=== PATIENT | female | born 1950 | race Caucasian/White ===

== ENCOUNTER → 2016-12-14 | Day surgery (SDC) | payer MEDICARE, OTHER ==
[~2016-12-14] MED LIST: ACET325T9 PO; AMLO5TAB4 PO; ASPI81TA9 PO; CYCL10TA2 PO; DOCU100C5 PO; FLUT1DIS3 IH; FURO40TA4 PO; GUAI600T38 PO; HYDROmorphone 2 MG/ML VIAL IV PRN; IV RINGERS,LACTATED 1000ML 1,000 ML IV SCH; LIDOCAINE 1% 1 ML SYRINGE. ID PRN; LIDOCAINE 2% PF Vial for OR 5 ML VIAL. ONE; METF500T4 PO; MONT10TA6 PO; MORPHINE SULFATE 2 MG/ML DISP.SYRIN. IV PRN; ONDANSETRON PF 4 MG/2 ML VIAL. IV PRN; POTASSIUM CHLO10 MEQ PO; PROCHLORPERAZINE 10 MG/2 ML VIAL. IV PRN; PROPOFOL 40 ML IV ONE; PROPRANOLOL PO; TRAM50TA PO; fentaNYL PF VIAL 100 MCG/2 ML VIAL IV PRN
[2016-12-14 11:37] VITALS: BP 120/74
--- NOTE | 2016-12-14 12:00 | PREOP HP ---
DATE OF SERVICE: 12/14/2016 REQUESTING PHYSICIAN: Dr. Wetzel, Primary Care Physician. REASON FOR PROCEDURE: Dysphagia and colorectal cancer screening. HISTORY OF PRESENT ILLNESS: This is a 66-year-old female, who presents with dysphagia. She also presents for colorectal screening. ALLERGIES: 1. LATEX. 2. BACITRACIN. PAST MEDICAL HISTORY: Significant for: 1. Arthritis. 2. Asthma. 3. COPD. 4. Diabetes. 5. Reflux. 6. Fibromyalgia. FAMILY MEDICAL HISTORY: No colorectal cancer. SOCIAL HISTORY: No tobacco, alcohol, or IV drug abuse. MEDICATIONS: Please see MAR. PAST SURGICAL HISTORY: Eye surgery and cardiac catheterization. REVIEW OF SYSTEMS: A 13-point review of systems was done. Pertinent positives per HPI and otherwise negative. PHYSICAL EXAMINATION: VITAL SIGNS: Afebrile. Stable. GENERAL: She is a well-developed and well-nourished female in no apparent distress. HEENT: Oropharynx is clear. CARDIOVASCULAR: S1, S2. LUNGS: Clear. ABDOMEN: Normoactive bowel sounds, soft, nontender, and nondistended. EXTREMITIES: No edema. NEUROLOGIC: Awake, alert, and oriented x 3. ASSESSMENT AND PLAN: 1. Dysphagia. Upper endoscopy. 2. Colorectal cancer screening. Thank you for allowing me to participate in the care of this patient. TANVIR BLEDSOE MD DR: JASPER/justine JOB#: [id number] / [id number] YG Amos MD
--- NOTE | 2016-12-18 13:47 | PATHOLOGY ---
PATHOLOGY REPORT * * * * * * * * FINAL DIAGNOSIS: A. Small bowel biopsy: - No significant pathologic abnormalities. B. Gastric biopsy, antrum: - Chronic gastritis, mild. C. Esophageal biopsy, distal esophagus: - Segments of esophagogastric and gastric mucosa showing mild to moderate active chronic inflammation. D. Esophageal biopsy, middle esophagus: - Segments of hyperplastic squamous esophageal mucosa showing chronic inflammation, consistent with reflux esophagitis. E. Colon biopsy, transverse colon polyp: - Consistent with prominent fold. COMMENT: Sections of the small bowel biopsy reveal segments of duodenal and small intestine mucosa. Where best oriented, the mucosal villi appear normal. There are no sprue-like changes or significant inflammatory changes. Sections of the gastric biopsy reveal gastric antral mucosa showing congestion and mild chronic inflammation with scattered admixed eosinophils. An immunoperoxidase stain for Helicobacter is obtained. No Helicobacter organisms are identified. There is no evidence of malignancy. Sections of the distal esophageal biopsy reveal segments of esophagogastric and gastric mucosa showing mild to moderate active chronic inflammation. There are focal intraepithelial neutrophils within the hyperplastic squamous epithelium. The findings are consistent with reflux esophagitis. There is no evidence of Ramirez's, dysplasia or malignancy. Sections of the middle esophageal biopsy reveal segments of tangentially oriented hyperplastic squamous esophageal mucosa showing chronic inflammation. The findings are consistent with reflux esophagitis. There is no evidence of Ramirez's change, dysplasia or malignancy. Sections of the transverse colon biopsy reveal a segment of colonic mucosa consistent with prominent fold. There are no adenomatous changes or evidence of malignancy. REPORT ELECTRONICALLY SIGNED BY: Mike Gleason M.D. DATE/TIME: 12/18/2016 13:46 * * * * * * * * GROSS PATHOLOGY: A. Received in formalin labeled "Santelierosa, Sara Milyannickossdc, small bowel BX," are 3 segments of thrasher soft tissue measuring 1.3 x 0.2 x 0.2 cm in aggregate dimensions and ranging from 0.3 to 0.7 cm in maximum dimension. The specimen is submitted entirely in cassette A1. B. Received in formalin labeled "Santigorosa, Sara Milagrossdc, gastric antrum BX," is a segment of thrasher soft tissue measuring 0.4 x 0.3 x 0.2 cm in maximum dimension. The specimen is submitted entirely in cassette B1. C. Received in formalin labeled "Santigorosa, Sara Milagrossdc, distal esophagus BX," are 2 segments of thrasher soft tissue measuring 0.6 x 0.2 x 0.2 cm in aggregate dimensions and ranging from 0.3 to 0.3 cm in maximum dimension. The specimen is submitted entirely in cassette C1. D. Received in formalin labeled "Sara Estes, mid esophagus BX," are 3 segments of white to thrasher soft tissue measuring 1.0 x 0.2 x 0.2 cm in aggregate dimensions and ranging from 0.3 to 0.4 cm in maximum dimension. The specimen is submitted entirely in cassette D1. E. Received in formalin labeled "Sara Estes, transverse colon polyp BX," is a segment of thrasher soft tissue measuring 0.5 x 0.3 x 0.2 cm in maximum dimension. The specimen is submitted entirely in cassette E1. (VICKI; 12/15/2016) INITIAL CPT CODE(S): A; 08185 B; 73442, 60782 C; 77055 D; 18474 E; 88652 Professional services [place] [facility] [place] [address] Technical services performed by [facility] at [address] [place] [address], [facility] [address] [address]. SPECIMEN(S) RECEIVED: A.Small bowel biopsy B.Gastric antrum biopsy C.Distal esophagus biopsy D.Mid esophagus biopsy E.Transverse colon polyp biopsy CLINICAL HISTORY: Dysphagia, screening PATIENT: SARA DAMON /AGE: 3 1950 (Age: 66) PATIENT #: [id number] ALT CASE #: SPECIMEN COLLECTION DATE: 12/14/2016 SPECIMEN RECEIVED DATE: 12/14/2016 [facility] - [address] [place] [address] - PHONE: [phone] * * * END OF REPORT * * *
== END | disposition home or self-care (01) ==
LOC: ENDOS 09:10
PROVIDERS: ATTEND Internal Medicine Gastroenterology
DX: Z12.11 Encounter for screening for malignant neoplasm of colon (principal); D12.3 Benign neoplasm of transverse colon; K64.0 First degree hemorrhoids; K31.89 Other diseases of stomach and duodenum; K21.0 Gastro-esophageal reflux disease with esophagitis; B37.81 Candidal esophagitis; I10 Essential (primary) hypertension; J44.9 Chronic obstructive pulmonary disease, unspecified; J45.909 Unspecified asthma, uncomplicated; M19.90 Unspecified osteoarthritis, unspecified site; E11.9 Type 2 diabetes mellitus without complications; Z96.651 Presence of right artificial knee joint; Z98.41 Cataract extraction status, right eye; Z98.42 Cataract extraction status, left eye
CPT/HCPCS: 43239; 43450; 45380; 82962; 88305; 88342; J2704

== ENCOUNTER → 2017-01-23 | Outpatient (CLI) | payer MEDICARE, OTHER ==
[2016-12-14 11:37] VITALS: BP 120/74
[~2017-01-23] MED LIST changes: +ASPI-612 PO; -ASPI81TA9 PO; +DOCU100C28 PO; -DOCU100C5 PO; -GUAI600T38 PO; +GUAI600T47 PO; -HYDROmorphone 2 MG/ML VIAL IV PRN; -IV RINGERS,LACTATED 1000ML 1,000 ML IV SCH; -LIDOCAINE 1% 1 ML SYRINGE. ID PRN; -LIDOCAINE 2% PF Vial for OR 5 ML VIAL. ONE; -MORPHINE SULFATE 2 MG/ML DISP.SYRIN. IV PRN; -ONDANSETRON PF 4 MG/2 ML VIAL. IV PRN; -PROCHLORPERAZINE 10 MG/2 ML VIAL. IV PRN; -PROPOFOL 40 ML IV ONE; -fentaNYL PF VIAL 100 MCG/2 ML VIAL IV PRN
--- NOTE | 2017-01-24 14:55 | PDOC4 ---
PROCEDURE Procedure Polysomnography report Date of service 01/23/[address] Janie Messer Sandhya is 66 years old who weighs 176 pounds with a BMI of 33. Patient [place] score was 14 suggesting moderate subjective hypersomnia. A split night study was performed at [place] [facility]. Patient has a history of sleep apnea diagnosed previously and has been using CPAP at 12 cm water in the past. During the night of study patient spent 455 minutes in bed and slept for 340 minutes with a sleep efficiency of 75%. Sleep latency was 32 minutes with a REM latency of 139 minutes. sleep Architecture showed normal stage I sleep., increased stage II sleep, increased slow-wave sleep and reduced REM sleep. During the initial diagnostic portion of the study patient slept for 132 minutes. During that time there was no obstructive apneas and mixed apneas or central apneas. There were 74 hypopneas. Patient's AHI was 34 per hour during the diagnostic portion. Supine AHI was 34 per hour and a REM AHI of 31 per hour. Review of nocturnal oximetry study reveals a mean oxygen saturation of 97% with a lowest of 87%. 4% percent of the time oxygen saturation remained between 80 and 89%. EKG monitoring revealed normal sinus rhythm. Average heart rate was 81 bpm and minute. No periodic limb movements were seen. Patient met the criteria for CPAP initiation. It was started at 5 cm water and titrated up to 9 cm water. At this final pressure patient slept for 49 minutes. She had supine as well as REM sleep. AHI was reduced to 0 per hour. saturation remained above 93%. Pt used small size full facemask. Impression 1. Severe sleep apnea Syndrome with an AHI of 34 per hour. 2. No clinically significant nocturnal hypoxia. 3. No clinically significant periodic limb movements. Recommendation 1.CPAP at 9 cm water should be used on a nightly basis. 2. Follow-up in 4-6 weeks to assess compliance with CPAP and to document clinical improvement. 3. Weight loss is advised 5. Cautioned regarding driving until symptoms of sleep apnea have resolved with the use of CPAP. ADAN BISHOP MD Jan 24, 2017 14:55
== END | disposition home or self-care (01) ==
LOC: SLPLAB 19:07
PROVIDERS: ATTEND Internal Medicine Pulmonary Disease
DX: G47.33 Obstructive sleep apnea (adult) (pediatric) (principal)
CPT/HCPCS: 95810

== ENCOUNTER 2019-04-15 17:33 | Inpatient (IN) | payer MEDICARE, MEDICAID ==
[~2019-04-15] VITALS: Ht 157.5 cm; Wt 86.4 kg
[~2019-04-15 17:33] MED LIST changes: +METF500T16 PO; -METF500T4 PO; +MONT10TA49 PO; -MONT10TA6 PO; +POTA10TA12 PO; -POTASSIUM CHLO10 MEQ PO
[2019-04-15] MEDS ORDERED: MORPHINE SULFATE 2 MG/ML VIAL. IV/SQ PRN (18:00)
[2019-04-15] MEDS ORDERED: VANCOMYCIN PER PHARMACY MC ONE (18:00)
[2019-04-15] MEDS: IV NORMAL SALINE 1000ML BAG 1,000 ML IV SCH ×2 (18:24→18:28)
[2019-04-15] MEDS ORDERED: PIPERACILLIN/TAZOBACTAM 4.5 GM in IV NORMAL SALINE 100ML 100 ML IV ONE (18:30)
[2019-04-15] MEDS ORDERED: ACETAMINOPHEN 500 MG TABLET PO ONE (18:30)
--- NOTE | 2019-04-15 18:46 | RAD ---
CT Head W/O Contrast: History: Fever neck pain and headache Comparison: none Axial images were obtained without contrast. There is moderate diffuse atrophy. There is no mass effect, extraaxial fluid collections or hydrocephalus. There is no focal loss of burciaga-white matter distinction to suggest acute ischemia, i.e. stroke. Impression: No acute findings. End impression CT C-Spine without contrast: Clinical History: Fever neck pain and headache Technique: Axial helical images of the cervical spine were obtained without contrast, axial coronal and sagittal reconstruction was performed. Findings: There is no loss of vertebral body stature. There is no prevertebral soft tissue swelling. The vertebral bodies are well aligned. There is straightening of the normal cervical lordosis which can be positional or could be chronic. The C1-C2 relationship is normal. The visualized osseous structures appear normal. Evaluation of the central canal is limited without contrast. There is multiple posterior disc bulges resulting in flattening of the thecal sac. There does not appear to be gross flattening of the cervical cord. There is moderate narrowing of multiple neuroforamen. Impression: 1. Straightening of the normal cervical doses could be secondary muscle spasm. 2. Multilevel central and neural femoral stenosis. 3. No acute findings. Clinical correlation suggested. PQRS Compliance Statement: One or more of the following individualized dose reduction techniques were utilized for this examination: 1. Automated exposure control 2. Adjustment of the mA and/or kV according to patient size 3. Use of iterative reconstruction technique Electronically signed by: Jarrod Estrada III, MD (04/15/2019 6:43 PM) [facility]
[2019-04-15 19:00] LABS: BASO % 0 % (0-3); EOS % 0 % (0-3); HEMATOCRIT 37.8 % (36.0-47.0); HEMOGLOBIN 12.3 g/dL (12.0-15.5); LYMPH # 0.9 x10^3/uL (1.0-4.8); LYMPH % 7 % (24-48); MEAN CORPUSCULAR HEMOGLOBIN 29 pg (25-35); MEAN CORPUSCULAR HGB CONC 33 g/dL (31-37); MEAN CORPUSCULAR VOLUME 90 fL (79-100); MONO # 1.3 x10^3/uL (0.0-1.1); MONO % 11 % (0-9); NEUT # 10.2 x10^3/uL (1.8-7.7); NEUT % 82 % (31-73); PLATELET COUNT 155 x10^3/uL (140-400); RED BLOOD COUNT 4.22 x10^6/uL (3.50-5.40); RED CELL DISTRIBUTION WIDTH 13.7 % (11.5-14.5); WHITE BLOOD COUNT 12.3 x10^3/uL (4.0-11.0)
[2019-04-15] MEDS ORDERED: VANCOMYCIN 2 GM in IV NORMAL SALINE 500ML BAG 500 ML IV ONE (19:00)
[2019-04-15] MEDS ORDERED: VANCOMYCIN 1.75 GM in IV NORMAL SALINE 500ML BAG 500 ML IV ONE (19:00)
--- NOTE | 2019-04-15 19:06 | RAD ---
PORTABLE CHEST 1V Clinical History: Fever Technique: AP view of the chest was obtained at 04/15/2019 5:30 PM. Comparison: None. Findings: There is low lung volumes causing crowding of pulmonary vasculature. The pulmonary vessels are top normal limits in size. The pleural margins are clear. Impression: No evidence of an acute cardiopulmonary process. Electronically signed by: Jarrod Estrada III, MD (04/15/2019 7:03 PM) [facility]
[2019-04-15 19:13] LABS: CALCIUM 9.6 mg/dL (8.5-10.1); POTASSIUM 3.6 mmol/L (3.5-5.1)
[2019-04-15 19:18] LABS: ALBUMIN 3.3 g/dL (3.4-5.0); ALBUMIN/GLOBULIN RATIO 0.8 (1.0-1.7); MAGNESIUM 1.9 mg/dL (1.8-2.4); TOTAL BILIRUBIN 0.3 mg/dL (0.2-1.0); TOTAL PROTEIN 7.5 g/dL (6.4-8.2)
[2019-04-15 21:01] LABS: INFLUENZA A PATIENT NEGATIVE (NEGATIVE); INFLUENZA B PATIENT NEGATIVE (NEGATIVE)
[2019-04-15 22:23] LABS: BILIRUBIN,URINE NEGATIVE (NEG); CLARITY,URINE CLEAR; COLOR,URINE YELLOW; NITRITE,URINE POSITIVE (NEG); PROTEIN,URINE 100 mg/dL (NEG-TRACE); UROBILINOGEN,URINE 0.2 mg/dL (0.2 mg/dL)
[2019-04-15 22:30] LABS: BACTERIA,URINE MANY /HPF (0-FEW); HYALINE CASTS, URINE FEW /HPF; RBC,URINE 20-40 /HPF (0-2); SQUAMOUS EPITHELIAL CELL,UR OCC /LPF; WBC,URINE TNTC /HPF (0-4)
--- NOTE | 2019-04-15 23:06 | PHYS DOC ---
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 Patient is a bit of a poor historian. Review of Systems Review of Systems Constitutional: Reports fever Eyes: Denies change in visual acuity, redness, or eye pain [] HENT: Denies nasal congestion or sore throat [] Respiratory: Denies cough or shortness of breath [] Cardiovascular: No additional information not addressed in HPI [] GI: Reports nausea and vomiting. Denies abdominal pain bloody stools or diarrhea [] : Denies dysuria or hematuria [] Musculoskeletal: Denies back pain or joint pain [] Integument: Denies rash or skin lesions [] Neurologic: Denies headache, focal weakness or sensory changes [] All other systems were reviewed and found to be within normal limits, except as documented in this note. Current Medications Current Medications Current Medications Medications (Trade) Dose Ordered Sig/Fransico Start Time Stop Time Status Last Admin Dose Admin Acetaminophen (Tylenol) 1,000 mg 1X ONCE 04/15/19 18:30 04/15/19 18:31 DC 04/15/19 18:25 1,000 MG Morphine Sulfate (Morphine Sulfate) 2 mg PRN Q15MIN PRN 04/15/19 18:00 04/16/19 17:59 Piperacillin Sod/ Tazobactam Sod 4.5 gm/Sodium Chloride 100 ml @ 200 mls/hr 1X ONCE 04/15/19 18:30 04/15/19 18:59 DC 04/15/19 18:24 200 MLS/HR Sodium Chloride 1,000 ml @ 1,500 mls/hr Q40M 04/15/19 17:48 04/15/19 18:47 DC 04/15/19 18:28 1,500 MLS/HR Vancomycin HCl (Vanco Per Pharmacy) 1 each 1X ONCE 04/15/19 18:00 04/15/19 20:56 DC Vancomycin HCl 1.75 gm/Sodium Chloride 500 ml @ 250 mls/hr 1X ONCE 04/15/19 19:00 04/15/19 20:59 DC 04/15/19 18:24 250 MLS/HR Vancomycin HCl 2 gm/Sodium Chloride 500 ml @ 250 mls/hr 1X ONCE 04/15/19 19:00 04/15/19 20:59 Cancel Allergies Allergies Allergies Coded Allergies Type Severity Reaction Last Updated Verified bacitracin Allergy Intermediate 12/14/16 Yes Physical Exam Physical Exam Constitutional: Well developed, well nourished, no acute distress, non-toxic appearance. [] HENT: Normocephalic, atraumatic, bilateral external ears normal, oropharynx moist, no oral exudates, nose normal. [] Eyes: PERRLA, EOMI, conjunctiva normal, no discharge. [] Neck: Normal range of motion, no tenderness, supple, no stridor. [] Cardiovascular:Heart rate regular rhythm, no murmur [] Lungs & Thorax: Diminished breath sounds to posterior lung bases Abdomen: Bowel sounds normal, soft, no tenderness, no masses, no pulsatile masses. [] Skin: Warm, dry, no erythema, no rash. [] Back: No tenderness, no CVA tenderness. [] Extremities: No tenderness, no cyanosis, no clubbing, ROM intact, no edema. [] Neurologic: Alert and oriented X 3, normal motor function, normal sensory function, no focal deficits noted. Cranial nerves II through XII intact Psychologic: Affect normal, judgement normal, mood normal. [] Current Patient Data Vital Signs Vital Signs Date Time Temp Pulse Resp B/P (MAP) Pulse Ox O2 Delivery O2 Flow Rate FiO2 04/15/19 17:42 103.5 103 16 134/62 (86) 97 Room Air 103.5 Lab Values Laboratory Tests Test 04/15/19 18:45 04/15/19 20:23 White Blood Count 12.3 x10^3/uL (4.0-11.0) H Red Blood Count 4.22 x10^6/uL (3.50-5.40) Hemoglobin 12.3 g/dL (12.0-15.5) Hematocrit 37.8 % (36.0-47.0) Mean Corpuscular Volume 90 fL (79-100) Mean Corpuscular Hemoglobin 29 pg (25-35) Mean Corpuscular Hemoglobin Concent 33 g/dL (31-37) Red Cell Distribution Width 13.7 % (11.5-14.5) Platelet Count 155 x10^3/uL (140-400) Neutrophils (%) (Auto) 82 % (31-73) H Lymphocytes (%) (Auto) 7 % (24-48) L Monocytes (%) (Auto) 11 % (0-9) H Eosinophils (%) (Auto) 0 % (0-3) Basophils (%) (Auto) 0 % (0-3) Neutrophils # (Auto) 10.2 x10^3/uL (1.8-7.7) H Lymphocytes # (Auto) 0.9 x10^3/uL (1.0-4.8) L Monocytes # (Auto) 1.3 x10^3/uL (0.0-1.1) H Eosinophils # (Auto) 0.0 x10^3/uL (0.0-0.7) Basophils # (Auto) 0.0 x10^3/uL (0.0-0.2) Sodium Level 145 mmol/L (136-145) Potassium Level 3.6 mmol/L (3.5-5.1) Chloride Level 108 mmol/L (98-107) H Carbon Dioxide Level 27 mmol/L (21-32) Anion Gap 10 (6-14) Blood Urea Nitrogen 19 mg/dL (7-20) Creatinine 1.0 mg/dL (0.6-1.0) Estimated GFR (Cockcroft-Gault) 55.0 BUN/Creatinine Ratio 19 (6-20) Glucose Level 161 mg/dL (70-99) H Lactic Acid Level 1.7 mmol/L (0.4-2.0) Calcium Level 9.6 mg/dL (8.5-10.1) Magnesium Level 1.9 mg/dL (1.8-2.4) Total Bilirubin 0.3 mg/dL (0.2-1.0) Aspartate Amino Transferase (AST) 20 U/L (15-37) Alanine Aminotransferase (ALT) 33 U/L (14-59) Alkaline Phosphatase 64 U/L (46-116) Creatine Kinase 83 U/L (26-192) Creatine Kinase MB (Mass) 0.6 ng/mL (0.0-3.6) Creatine Kinase MB Relative Index 0.7 % (0-4) Troponin I Quantitative < 0.017 ng/mL (0.000-0.055) UA-Xbm-L-Type Natriuretic Peptide 203 pg/mL (0-124) H Total Protein 7.5 g/dL (6.4-8.2) Albumin 3.3 g/dL (3.4-5.0) L Albumin/Globulin Ratio 0.8 (1.0-1.7) L Lipase 112 U/L (73-393) Procalcitonin 0.18 ng/mL (0.00-0.10) H Thyroid Stimulating Hormone (TSH) 0.577 uIU/mL (0.358-3.74) Influenza Type A Antigen Negative (NEGATIVE) Influenza Type B Antigen Negative (NEGATIVE) Laboratory Tests 04/15/19 18:45 Laboratory Tests 04/15/19 18:45 EKG EKG [] Radiology/Procedures Radiology/Procedures []PROCEDURE: PORTABLE CHEST 1V PORTABLE CHEST 1V Clinical History: Fever Technique: AP view of the chest was obtained at 04/15/2019 5:30 PM. Comparison: None. Findings: There is low lung volumes causing crowding of pulmonary vasculature. The pulmonary vessels are top normal limits in size. The pleural margins are clear. Impression: No evidence of an acute cardiopulmonary process. Electronically signed by: Jordan Ferrer III, MD (04/15/2019 7:03 PM) [facility] DICTATED and SIGNED BY: JORDAN FERRER III, MD DATE: 04/15/191902 PROCEDURE: CT HEAD AND CERVICAL SPINE WO CT Head W/O Contrast: History: Fever neck pain and headache Comparison: none Axial images were obtained without contrast. There is moderate diffuse atrophy. There is no mass effect, extraaxial fluid collections or hydrocephalus. There is no focal loss of burciaga-white matter distinction to suggest acute ischemia, i.e. stroke. Impression: No acute findings. End impression CT C-Spine without contrast: Clinical History: Fever neck pain and headache Technique: Axial helical images of the cervical spine were obtained without contrast, axial coronal and sagittal reconstruction was performed. Findings: There is no loss of vertebral body stature. There is no prevertebral soft tissue swelling. The vertebral bodies are well aligned. There is straightening of the normal cervical lordosis which can be positional or could be chronic. The C1-C2 relationship is normal. The visualized osseous structures appear normal. Evaluation of the central canal is limited without contrast. There is multiple posterior disc bulges resulting in flattening of the thecal sac. There does not appear to be gross flattening of the cervical cord. There is moderate narrowing of multiple neuroforamen. Impression: 1. Straightening of the normal cervical doses could be secondary muscle spasm. 2. Multilevel central and neural femoral stenosis. 3. No acute findings. Clinical correlation suggested. PQRS Compliance Statement: One or more of the following individualized dose reduction techniques were utilized for this examination: 1. Automated exposure control 2. Adjustment of the mA and/or kV according to patient size 3. Use of iterative reconstruction technique Electronically signed by: Jordan Ferrer III, MD (04/15/2019 6:43 PM) [facility] DICTATED and SIGNED BY: JORDAN FERRER III, MD DATE: 04/15/191842 Course & Med Decision Making Course & Med Decision Making Pertinent Labs and Imaging studies reviewed. (See chart for details) This is a 68-year-old female patient presenting to the ED today with fever nausea and vomiting that began this afternoon well at discharge. Temperature on arrival to the ED were normal 3.5, heart rate 103, respirations 16 on 2 L of oxygen, O2 sats 97%, blood pressure 134/62. Patient was started on sepsis protocol. CBC with a WBC of 12.3, CMP would not acute findings, chest x-ray is negative, urine analysis was pending for a while. Came back showing UTI. Lactic is normal. Patient has been given IV fluids per sepsis protocol as well as antibiotics. Spoke with Dr. Tan who accepted patient for admission Dragon Disclaimer Dragon Disclaimer This electronic medical record was generated, in whole or in part, using a voice recognition dictation system. Date and Time of Reassessment Date: Apr 15, 2019 Time: 20:00 Fluid Challenge Is the fluid challenge complet: No IBW Target Volume Used: No BMI > 30: No Vital Signs Vital Signs: Vital Signs Date Time Temp Pulse Resp B/P (MAP) Pulse Ox O2 Delivery O2 Flow Rate FiO2 04/15/19 17:42 103.5 103 16 134/62 (86) 97 Room Air 103.5 Temperature Source: Oral Respirations Respiratory Effort: Normal Respiratory Pattern: Normal Cardiovascular Pulse Rhythm: Regular Heart: Nml rate, reg. rhythm Lung Sounds Breath Sounds: Clear Capillary Refil Capillary Refill: Rt Hand > 3 seconds Peripheral Pulse Pulse Location: Monitor Pulse Strength: Normal (2+) Pulse Assessment Method: Monitor Integumentary Skin: Warm Skin Moisture: Dry Skin Turgor: Normal Skin Color: warm Fingernail Color: WNL Departure Departure Impression: Primary Impression: Fever Additional Impressions: Pyelonephritis Urinary tract infection Disposition: ADMITTED INPATIENT Condition: STABLE Referrals: YG DE LEON MD (PCP) Problem Qualifiers Primary Impression: Fever Fever type: unspecified Qualified Codes: R50.9 - Fever, unspecified Additional Impressions: Urinary tract infection Urinary tract infection type: site unspecified Hematuria presence: without hematuria Qualified Codes: N39.0 - Urinary tract infection, site not spe cified JENNIFER RICHARD APRN Apr 15, 2019 23:06
[2019-04-15] MEDS ORDERED: MORPHINE SULFATE 2 MG/ML VIAL. IV PRN (23:15)
[2019-04-15] MEDS ORDERED: ONDANSETRON PF 4 MG/2 ML VIAL. IV PRN (23:15)
[2019-04-15 23:20] VITALS: BP 115/56
[2019-04-15] MEDS: VANCOMYCIN PER PHARMACY MC PRN (23:21)
--- NOTE | 2019-04-15 23:21 | NUR ---
Pharmacy Vancomycin Dosing Note S:Consulted to monitor and dose vancomycin started 04/15/19. O:SARA DAMON is a 68 year old F with Pyelonephritis UTI . Height: 5 feet, 2 inches Weight: 78.420277 kg [place] Body Weight: 50.10 Adjusted Body Weight: 61.62 Dosing Weight: Actual Other Antibiotics: ZOSYN X1 ER LABS: Last BUN: 19 Last Creatinine: 1 Creatinine Clearance: 51 mL/min Last WBC: 12.3 Last Procalcitonin: 0.18 Tmax (past 24 hours): 103.5 RECTAL Microbiology: I/O: Drug Levels: Last level: on at Last dose given 04/15/19 at 1830 Vancomycin Dosing: Loading Dose: 1750 mg x1 Dosing Weight: Actual Target Trough: 10-20 A: Based on: WT AND CRCL P: 1. Begin Vancomycin 1250 mg IV q24h 2. Follow up Trough level on 04/17/19 at 1730 3. Pharmacy will continue to monitor, follow and adjust therapy as needed. CORIE TADEO RPH, 04/15/19 2321 Signed: 04/15/19 at 2322 by CORIE TADEO RPH PHA
[2019-04-15] MEDS ORDERED: IV NORMAL SALINE 1000ML BAG 1,000 ML IV ONE (23:30)
[2019-04-16] MEDS ORDERED: ASPI-630 PO (02:14)
[2019-04-16] MEDS ORDERED: GUAI600T47 PO (02:14)
[2019-04-16] MEDS ORDERED: GABA-585 PO (02:14)
[2019-04-16] MEDS ORDERED: FLUT9.9S NS (02:14)
[2019-04-16] MEDS ORDERED: BETA15CR5 TP (02:14)
[2019-04-16] MEDS ORDERED: FLUT1DIS3 IH (02:14)
[2019-04-16] MEDS ORDERED: LORA10TA3 PO (02:14)
[2019-04-16] MEDS ORDERED: IBUP-1027 PO (02:14)
[2019-04-16] MEDS ORDERED: OMEG-165 PO (02:14)
[2019-04-16] MEDS ORDERED: FURO20TA3 PO (02:14)
[2019-04-16] MEDS ORDERED: LIDO76.5 TP (02:14)
[2019-04-16] MEDS ORDERED: VENTOLIN HFA18 GM INH (02:14)
[2019-04-16] MEDS ORDERED: POLY17PO29 PO (02:14)
[2019-04-16] MEDS ORDERED: POTA10TA12 PO (02:14)
[2019-04-16] MEDS ORDERED: CYCL1DRO EACHEYE (02:14)
[2019-04-16] MEDS ORDERED: ERGO500027 PO (02:14)
[2019-04-16] MEDS ORDERED: ACET500T68 PO (02:14)
[2019-04-16] MEDS ORDERED: OMEP20CA10 PO (02:14)
[2019-04-16] MEDS ORDERED: FURO40TA4 PO (02:14)
[2019-04-16 03:15] VITALS: BP 146/68
[2019-04-16] MEDS: ACETAMINOPHEN 325 MG TABLET. PO PRN ×2 (03:21→03:38)
[2019-04-16] MEDS ORDERED: ACETAMINOPHEN 650 MG SUPP.RECT. PR PRN (03:30)
--- NOTE | 2019-04-16 04:10 | NUR ---
Rapid Response Note: Rapid response called by patient's RN for decreased LOC. RN states patient was admitted from ED tonight with Sepsis/UTI. She also stated patient did have fever in ED but it had decreased after administration of Tylenol and was normal on admission to unit; patient also alert, cooperative, and able to get up to bathroom with assist. Upon arrival, patient's skin is flushed and hot to touch, temp 104.1 axillary, patient vomiting green bile, and patient is very lethargic but she does open eyes to name; Tylenol suppository and Zofran IV given. Patient was given Vanc and Zosyn in ED prior to admit. Ice bag placed behind patient's head, in bilat arm pits, and bilat groins. Notified RN to recheck Lactic, obtain one set of blood cultures, and monitor closely for seizures and call if PCP if fever does not decrease; RN verbalized understanding. Patient remains in the room. Addendum: 04/16/19 at 0702 by JANEL CARDONA RN Amended: Links added.
[2019-04-16 04:20] LABS: BASO # 0.1 x10^3/uL (0.0-0.2); BASO % 1 % (0-3); EOS % 0 % (0-3); HEMATOCRIT 35.3 % (36.0-47.0); HEMOGLOBIN 11.6 g/dL (12.0-15.5); LYMPH # 0.9 x10^3/uL (1.0-4.8); LYMPH % 8 % (24-48); MEAN CORPUSCULAR HEMOGLOBIN 30 pg (25-35); MEAN CORPUSCULAR HGB CONC 33 g/dL (31-37); MEAN CORPUSCULAR VOLUME 90 fL (79-100); MONO # 1.4 x10^3/uL (0.0-1.1); MONO % 12 % (0-9); NEUT # 9.3 x10^3/uL (1.8-7.7); NEUT % 80 % (31-73); PLATELET COUNT 131 x10^3/uL (140-400); RED BLOOD COUNT 3.92 x10^6/uL (3.50-5.40); RED CELL DISTRIBUTION WIDTH 13.6 % (11.5-14.5); WHITE BLOOD COUNT 11.7 x10^3/uL (4.0-11.0)
[2019-04-16 04:28] LABS: POTASSIUM 3.5 mmol/L (3.5-5.1)
--- NOTE | 2019-04-16 04:28 | NUR ---
Patient started having emesis and skin felt warm and assessed temperature and 102.4ax and became alert and orientated to self. Administered Zofran and tylenol suppository. Called a rapid response due to patients temperature of 104.1 axillary and placed ice packs under patient, cold wash cloths, cold NS and contacted Dr. Valdez and stat labs and blood culture.
--- NOTE | 2019-04-16 06:59 | EKG ---
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
[2019-04-16 07:00] VITALS: BP 111/56
--- NOTE | 2019-04-16 07:07 | EKG ---
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
[2019-04-16] MEDS ORDERED: FLU VAX QS 2019-20 (36MOS+)/PF 0.5 ML SYRINGE. VAX IM ONE (09:15)
[2019-04-16] MEDS ORDERED: IBUPROFEN 400 MG TABLET. PO PRN (09:45)
[2019-04-16] MEDS ORDERED: PIP/TAZO PER PHARMACY MC PRN (09:45)
[2019-04-16] MEDS: POLYETHYLENE GLYCOL 3350 17 GM PACKET. PO SCH (10:00)
[2019-04-16] MEDS ORDERED: methylPREDNISolone SOD SUCC PF 40 MG/ML VIAL. IV SCH (10:00)
[2019-04-16] MEDS: DOCUSATE SODIUM 100 MG CAPSULE. PO SCH ×2 (10:00→21:56)
[2019-04-16] MEDS ORDERED: metFORMIN 500 MG TABLET PO SCH (10:00)
--- NOTE | 2019-04-16 10:02 | PDOC ---
Infectious Disease Note Vital Sign Vital Signs Vital Signs Date Time Temp Pulse Resp B/P (MAP) Pulse Ox O2 Delivery O2 Flow Rate FiO2 04/16/19 07:00 99.5 93 18 111/56 (74) 96 Nasal Cannula 2.0 99.5 Labs Lab Laboratory Tests Test 04/15/19 18:45 04/15/19 20:23 04/15/19 20:25 04/15/19 22:13 White Blood Count 12.3 x10^3/uL (4.0-11.0) Red Blood Count 4.22 x10^6/uL (3.50-5.40) Hemoglobin 12.3 g/dL (12.0-15.5) Hematocrit 37.8 % (36.0-47.0) Mean Corpuscular Volume 90 fL (79-100) Mean Corpuscular Hemoglobin 29 pg (25-35) Mean Corpuscular Hemoglobin Concent 33 g/dL (31-37) Red Cell Distribution Width 13.7 % (11.5-14.5) Platelet Count 155 x10^3/uL (140-400) Neutrophils (%) (Auto) 82 % (31-73) Lymphocytes (%) (Auto) 7 % (24-48) Monocytes (%) (Auto) 11 % (0-9) Eosinophils (%) (Auto) 0 % (0-3) Basophils (%) (Auto) 0 % (0-3) Neutrophils # (Auto) 10.2 x10^3/uL (1.8-7.7) Lymphocytes # (Auto) 0.9 x10^3/uL (1.0-4.8) Monocytes # (Auto) 1.3 x10^3/uL (0.0-1.1) Eosinophils # (Auto) 0.0 x10^3/uL (0.0-0.7) Basophils # (Auto) 0.0 x10^3/uL (0.0-0.2) Sodium Level 145 mmol/L (136-145) Potassium Level 3.6 mmol/L (3.5-5.1) Chloride Level 108 mmol/L (98-107) Carbon Dioxide Level 27 mmol/L (21-32) Anion Gap 10 (6-14) Blood Urea Nitrogen 19 mg/dL (7-20) Creatinine 1.0 mg/dL (0.6-1.0) Estimated GFR (Cockcroft-Gault) 55.0 BUN/Creatinine Ratio 19 (6-20) Glucose Level 161 mg/dL (70-99) Lactic Acid Level 1.7 mmol/L (0.4-2.0) Calcium Level 9.6 mg/dL (8.5-10.1) Magnesium Level 1.9 mg/dL (1.8-2.4) Total Bilirubin 0.3 mg/dL (0.2-1.0) Aspartate Amino Transf (AST/SGOT) 20 U/L (15-37) Alanine Aminotransferase (ALT/SGPT) 33 U/L (14-59) Alkaline Phosphatase 64 U/L (46-116) Creatine Kinase 83 U/L (26-192) Creatine Kinase MB (Mass) 0.6 ng/mL (0.0-3.6) Creatine Kinase MB Relative Index 0.7 % (0-4) Troponin I Quantitative < 0.017 ng/mL (0.000-0.055) HW-Mzc-R-Type Natriuretic Peptide 203 pg/mL (0-124) Total Protein 7.5 g/dL (6.4-8.2) Albumin 3.3 g/dL (3.4-5.0) Albumin/Globulin Ratio 0.8 (1.0-1.7) Lipase 112 U/L (73-393) Procalcitonin 0.18 ng/mL (0.00-0.10) Thyroid Stimulating Hormone (TSH) 0.577 uIU/mL (0.358-3.74) Influenza Type A Antigen Negative (NEGATIVE) Influenza Type B Antigen Negative (NEGATIVE) Group A Streptococcus Rapid Negative (NEGATIVE) Urine Collection Type U cath Urine Color Yellow Urine Clarity Clear Urine pH 6.0 Urine Specific [place] 1.025 Urine Protein 100 mg/dL (NEG-TRACE) Urine Glucose (UA) Negative mg/dL (NEG) Urine Ketones (Stick) Negative mg/dL (NEG) Urine Blood Moderate (NEG) Urine Nitrite Positive (NEG) Urine Bilirubin Negative (NEG) Urine Urobilinogen Dipstick 0.2 mg/dL (0.2 mg/dL) Urine Leukocyte Esterase Large (NEG) Urine RBC 20-40 /HPF (0-2) Urine WBC Tntc /HPF (0-4) Urine Squamous Epithelial Cells Occ /LPF Urine Bacteria Many /HPF (0-FEW) Urine Hyaline Casts Few /HPF Test 04/16/19 03:27 04/16/19 04:10 Glucose (Fingerstick) 163 mg/dL (70-99) White Blood Count 11.7 x10^3/uL (4.0-11.0) Red Blood Count 3.92 x10^6/uL (3.50-5.40) Hemoglobin 11.6 g/dL (12.0-15.5) Hematocrit 35.3 % (36.0-47.0) Mean Corpuscular Volume 90 fL (79-100) Mean Corpuscular Hemoglobin 30 pg (25-35) Mean Corpuscular Hemoglobin Concent 33 g/dL (31-37) Red Cell Distribution Width 13.6 % (11.5-14.5) Platelet Count 131 x10^3/uL (140-400) Neutrophils (%) (Auto) 80 % (31-73) Lymphocytes (%) (Auto) 8 % (24-48) Monocytes (%) (Auto) 12 % (0-9) Eosinophils (%) (Auto) 0 % (0-3) Basophils (%) (Auto) 1 % (0-3) Neutrophils # (Auto) 9.3 x10^3/uL (1.8-7.7) Lymphocytes # (Auto) 0.9 x10^3/uL (1.0-4.8) Monocytes # (Auto) 1.4 x10^3/uL (0.0-1.1) Eosinophils # (Auto) 0.0 x10^3/uL (0.0-0.7) Basophils # (Auto) 0.1 x10^3/uL (0.0-0.2) Sodium Level 143 mmol/L (136-145) Potassium Level 3.5 mmol/L (3.5-5.1) Chloride Level 108 mmol/L (98-107) Carbon Dioxide Level 24 mmol/L (21-32) Anion Gap 11 (6-14) Blood Urea Nitrogen 15 mg/dL (7-20) Creatinine 1.0 mg/dL (0.6-1.0) Estimated GFR (Cockcroft-Gault) 55.0 Glucose Level 171 mg/dL (70-99) Lactic Acid Level 1.3 mmol/L (0.4-2.0) Calcium Level 9.0 mg/dL (8.5-10.1) Objective Assessment UTI, POA 04/15 Acute encephalopathy Fever Leukocytosis Sinus congestion COPD Plan Plan of Care Zosyn and vanc Monitor renal function closely, temp & WBCs f/u cultures Supportive care [facility] Dr. Daily Thank you [id number] F/u CT scan. records reviewed d/w nurse from [facility] Attending Co-Sign Attending Co-Sign The patient was seen and interviewed as well as examined at the bedside. The chart was reviewed. The case was discussed. Agree with the plan of care. LA GREEN APRN Apr 16, 2019 10:02 DOUG GRACE MD Apr 16, 2019 15:20
[2019-04-16] MEDS: VANCOMYCIN PER PHARMACY MC PRN (10:40)
--- NOTE | 2019-04-16 10:45 | CONS ---
DATE OF CONSULTATION: 04/16/2019 REFERRING PHYSICIAN: Iftikhar Tan MD REASON FOR CONSULTATION: Fever. HISTORY OF PRESENT ILLNESS: The patient is a 68-year-old [employer] with a past medical history of COPD and sleep apnea with CPAP at night, who was in her usual state of health when yesterday morning, she woke up feeling sick with fevers, chills, body aches and generalized weakness. She took Tylenol and ibuprofen with minimal relief. She stayed in bed and slept. On arrival to the ER, she had a temperature of 103.5, heart rate 103. Influenza screen was negative. Chest x-ray was unremarkable. Urinalysis was positive for wbc's, leukocyte esterase and nitrite with many bacteria. Urine and blood cultures are pending. She was dosed with vancomycin and Zosyn. The patient is somewhat lethargic and a poor historian. [facility]. She has not had the influenza shot this season. She has not been in any contact with persons who had been sick. She was last hospitalized at last year. No recent antibiotics over the last several months. She has not done any traveling. She has a dry cough and complains of sinus congestion. She is requiring supplemental oxygen of 2 liters. PAST MEDICAL HISTORY: 1. COPD. 2. Sleep apnea with CPAP at night. 3. Seasonal allergies, 4. Asthma. 5. Peripheral vascular disease. 6. Hypertension. 7. Fibromyalgia. 8. Arthritis. 9. Prediabetes. 10. Fatty liver disease. 11. Gastroesophageal reflux. 12. Venous ulcer. 13. Plastic surgery on left leg for ulcer. PAST SURGICAL HISTORY: Cataract extraction, cardiac catheterization, right partial knee replacement in 2011. SOCIAL HISTORY: The patient is a [employer] for [employer]. FAMILY HISTORY: Noncontributory. ALLERGIES: ADHESIVE TAPE, BACITRACIN, CHOCOLATE FLAVOR, CORN, FORMALDEHYDE, NICKEL, OATS, ORANGE, PEANUT AND TUNA OIL. No reports about antibiotic allergies. MEDICATIONS: Vancomycin, Zosyn, methylprednisolone, probiotics, guaifenesin, Lasix. Other medications are available and have been reviewed on the SEP. REVIEW OF SYSTEMS: Per HPI, otherwise all other review of systems are limited at this time, as the patient is somewhat confused. PHYSICAL EXAMINATION: VITAL SIGNS: Temperature 99.5, T-max 103.9, blood pressure 111/56, heart rate 93, respiratory rate 18, pulse oximetry 96% on 2 liters oxygen, BMI 33. GENERAL: The patient is propped up in bed, awake, tired appearance. HEENT: Pupils equally round. Oropharynx pink and moist. NECK: Neck is supple. LUNGS: Clear to auscultation. HEART: S1, S2. ABDOMEN: Obese, soft, nontender. EXTREMITIES: No gross edema or cyanosis. SKIN: Warm to touch. No signs of rash. NEUROLOGIC: Awake, answers a few questions appropriately. Otherwise poor historian. LABORATORY DATA: Today's WBC 11.7, hemoglobin 11.6, platelets 131,000. Sodium 143, potassium 3.5, creatinine 1.0, BUN 15. Lactic acid 1.3, glucose 171. Total bilirubin 0.3, AST 20, ALT 33. Creatinine kinase 83. Troponin less than 0.017. BNP 203. Albumin 3.3. TSH is 0.577. Procalcitonin 0.18. Urinalysis per HPI. Urine and blood cultures pending. Influenza and group A strep rapid negative. Chest x-ray unremarkable. Head/cervical spine without contrast showed no acute findings. IMPRESSION: 1. Urinary tract infection present on admission. 2. Acute encephalopathy. 3. Fever. 4. Leukocytosis. 5. Sinus congestion. 6. Chronic obstructive pulmonary disease. PLAN: Continue vancomycin and Zosyn. Monitor renal function closely along with labs and vital signs. We will follow up on culture results. Supportive care. Thank you, Dr. Tan, for asking us to participate in this patient's care. Should you have further questions or concerns, please call. DOUG GRACE MD DR: LISSETTE/justine JOB#: [id number] / [id number]
[2019-04-16] MEDS: MONTELUKAST SODIUM 10 MG TABLET. PO SCH (10:54)
[2019-04-16] MEDS: POTASSIUM CHLORIDE 10 MEQ TABLET.ER. PO SCH (10:54)
[2019-04-16] MEDS: amLODIPine BESYLATE 5 MG TABLET PO SCH (10:55)
[2019-04-16] MEDS: LACTOBACILLUS RHAMNOSUS GG 1 CAPSULE. PO SCH ×2 (10:55→21:56)
[2019-04-16] MEDS: ASPIRIN CHEWABLE 81 MG TABLET. PO SCH (10:55)
[2019-04-16] MEDS: traMADol 50 MG TABLET PO SCH (10:56)
[2019-04-16] MEDS: FUROSEMIDE 40 MG TABLET. PO SCH (10:56)
[2019-04-16 11:00] VITALS: BP 115/56
[2019-04-16] MEDS: PIPERACILLIN/TAZOBACTAM 3.375 GM in IV NORMAL SALINE 50ML 50 ML IV SCH ×2 (11:03→17:44)
--- NOTE | 2019-04-16 11:38 | CARD ---
MR#: [id number] Date of Study: 04/16/2019 Ordering Physician: BENITA CLEMENT, Referring Physician: BENITA CLEMENT Tech: Indira Gunderson MARU APPROVED REPORT EXAM: Two-dimensional and M-mode echocardiogram with Doppler and color Doppler. Other Information Quality : Technically LimitedHR: 95bpm Rhythm : NSRTechnically limited study due to body habitus. INDICATION Arrhythmia 2D DIMENSIONS RVDd2.9 (2.9-3.5cm)Left Atrium(2D)3.6 (1.6-4.0cm) IVSd1.2 (0.7-1.1cm)Aortic Root(2D)3.2 (2.0-3.7cm) LVDd3.9 (3.9-5.9cm)LVOT Diameter2.0 (1.8-2.4cm) PWd1.1 (0.7-1.1cm)LVDs2.9 (2.5-4.0cm) FS (%) 25.3 %SV32.4 ml LVEF(%)50.6 (>50%) M-Mode DIMENSIONS Left Atrium(MM)4.01 (2.5-4.0cm)Aortic Root3.31 (2.2-3.7cm) Aortic Valve AoV Peak Anshu.180.2cm/sAoV VTI29.0cm AO Peak GR.13.0mmHgLVOT VTI 18.54cm AO Mean GR.7mmHgAVA (VTI)1.90cm2 Mitral Valve MV E Lhxurubw54.7cm/sMV DECEL [id number] MV A Jgkrsmkx269.1cm/sE/A Ratio0.7 MV A [id number] TDI Lateral E' P. V10.43cm/sMedial E' P. V11.84cm/s E/Lateral E'7.7E/Medial E'6.8 LEFT VENTRICLE The left ventricle is normal size. There is mild concentric left ventricular hypertrophy. Left ventri herve systolic function is low normal. The Ejection Fraction is 50-55%. There is normal LV segmental wa ll motion. Transmitral Doppler flow pattern is Grade I-abnormal relaxation pattern. RIGHT VENTRICLE The right ventricle is normal size. There is normal right ventricular wall thickness. The right ventr icular systolic function is normal. ATRIA The left atrium size is normal. The right atrium size is normal. The interatrial septum is intact wit h no evidence for an atrial septal defect or patent foramen ovale as noted on 2-D or Doppler imaging. AORTIC VALVE Not well visualized. Doppler and Color Flow revealed no significant aortic regurgitation. There is no significant aortic valvular stenosis. There is no aortic valvular vegetation. MITRAL VALVE Mitral annular calcification is mild. There is no evidence of mitral valve prolapse. There is no mitr al valve stenosis. Doppler and Color-flow revealed trace to mild mitral regurgitation. TRICUSPID VALVE The tricuspid valve is normal in structure and function. Doppler and Color Flow revealed no tricuspid valve regurgitation noted. There is no tricuspid valve prolapse or vegetation. There is no tricuspid valve stenosis. PULMONIC VALVE The pulmonic valve is not well visualized. GREAT VESSELS The aortic root is normal in size. The ascending aorta is normal in size. The IVC is normal in size a nd collapses >50% with inspiration. PERICARDIAL EFFUSION There is no evidence of significant pericardial effusion. Critical Notification Critical Value: No <Conclusion> Left ventricle systolic function is low normal. The Ejection Fraction is 50-55%. There is normal LV segmental wall motion. Signed by : Francisco Lopez, Electronically Approved : 04/16/2019 11:38:09
--- NOTE | 2019-04-16 11:55 | PDOC2 ---
CARDIAC CONSULT DATE OF CONSULT Date of Consult DATE: 04/16/19 TIME: 0900 REASON FOR CONSULT Reason for Consult: Tachycardia REFERRING PHYSICIAN Referring Physician: Fullbright SOURCE Source: Chart review, Patient HISTORY OF PRESENT ILLNESS HISTORY OF PRESENT ILLNESS This is a pleasant 68 yo female admitted for complains of fever. Reports that she has been having fever and chills in the last 3 days. Reports of some back pain and burning urination. Denies any chest pain, SOA, palpitations, frequent coughing and no exertional CP nor HUYNH. Reports no hx of nephrolithiasis and no CAD. Her last cardiac workup was 2013 to which she had TTE, LHC and holter monitor which were unremarkable for significant issues. She was noted to be tachycardic but also had episodes to which her QRS widened with HR in the 130- 140s and this was brief. No cardiac symptoms at that time and this is in the setting of high fever. PAST MEDICAL HISTORY Cardiovascular: HTN Pulmonary: Asthma, Other (MOHINDER with CPAP use) CENTRAL NERVOUS SYSTEM: Other (No pertinent history) GI: Constipation Heme/Onc: No pertinent hx Hepatobiliary: No pertinent hx Psych: No pertinent hx Musculoskeletal: Osteoarthritis Rheumatologic: No pertinent hx Infectious disease: No pertinent hx ENT: Allergic Rhinitis Renal/: No pertinent hx Endocrine: No pertinent hx Dermatology: No pertinent hx PAST SURGICAL HISTORY Past Surgical History: Cataract Removal, Other ([facility] [place]) FAMILY HISTORY Family History noncontributory SOCIAL HISTORY Smoke: No ALCOHOL: none Drugs: None Lives: with Family CURRENT MEDICATIONS CURRENT MEDICATIONS Current Medications Medications (Trade) Dose Ordered Sig/Fransico Route PRN Reason Start Time Stop Time Status Last Admin Dose Admin Sodium Chloride 1,000 ml @ 1,500 mls/hr Q40M IV 04/15/19 17:48 04/15/19 18:47 DC 04/15/19 18:28 Piperacillin Sod/ Tazobactam Sod 4.5 gm/Sodium Chloride 100 ml @ 200 mls/hr 1X ONCE IV 04/15/19 18:30 04/15/19 18:59 DC 04/15/19 18:24 Acetaminophen (Tylenol) 1,000 mg 1X ONCE PO 04/15/19 18:30 04/15/19 18:31 DC 04/15/19 18:25 Vancomycin HCl 1.75 gm/Sodium Chloride 500 ml @ 250 mls/hr 1X ONCE IV 04/15/19 19:00 04/15/19 20:59 DC 04/15/19 18:24 Vancomycin HCl (Vanco Per Pharmacy) 1 each PRN DAILY PRN MC SEE COMMENTS 04/15/19 21:00 04/16/19 10:40 Ondansetron HCl (Zofran) 4 mg PRN Q8HRS PRN IV NAUSEA/VOMITING 1ST CHOICE 04/15/19 23:15 04/16/19 23:14 04/16/19 03:11 Acetaminophen (Tylenol) 650 mg PRN Q4HRS PRN PO FEVER 04/15/19 23:15 04/16/19 23:14 04/16/19 03:21 Sodium Chloride 1,000 ml @ 75 mls/hr 1X ONCE IV 04/15/19 23:30 04/16/19 12:49 04/16/19 03:11 Acetaminophen (Tylenol Supp) 650 mg PRN Q6HRS PRN [place] MILD PAIN / TEMP 04/16/19 03:30 04/16/19 03:38 Lactobacillus Rhamnosus (Culturelle) 1 cap BID PO 04/16/19 09:00 04/16/19 10:55 Amlodipine Besylate (Norvasc) 5 mg DAILY PO 04/16/19 10:00 04/16/19 10:55 Aspirin (Children'S Aspirin) 81 mg DAILY PO 04/16/19 10:00 04/16/19 10:55 Furosemide (Lasix) 40 mg MoWeFr PO 04/16/19 09:00 04/16/19 10:56 Metformin HCl (Glucophage) 500 mg DAILY08 PO 04/16/19 10:00 04/16/19 10:55 Montelukast Sodium (Singulair) 10 mg DAILY PO 04/16/19 10:00 04/16/19 10:54 Potassium Chloride (Klor-Con) 10 meq DAILY PO 04/16/19 10:00 04/16/19 10:54 Tramadol HCl (Ultram) 50 mg DAILY PO 04/16/19 10:00 04/16/19 10:56 Methylprednisolone Sodium Succinate (SOLU-Medrol 40MG VIAL) 40 mg TID IV 04/16/19 10:00 04/16/19 10:55 Piperacillin Sod/ Tazobactam Sod 3.375 gm/Sodium Chloride 50 ml @ 100 mls/hr Q6HRS IV 04/16/19 11:00 04/16/19 11:03 ALLERGIES ALLERGIES: Coded Allergies: adhesive tape (Verified Allergy, Intermediate, 04/16/19) bacitracin (Verified Allergy, Intermediate, 12/14/16) chocolate flavor (Verified Allergy, Intermediate, 04/16/19) corn (Verified Allergy, Intermediate, 04/16/19) formaldehyde (Verified Allergy, Intermediate, 04/16/19) nickel (Verified Allergy, Intermediate, 04/16/19) oats (Verified Allergy, Intermediate, 04/16/19) orange (Verified Allergy, Intermediate, 04/16/19) peanut (Verified Allergy, Intermediate, 04/16/19) tuna oil (Verified Allergy, Intermediate, 04/16/19) ROS Review of System 14 point ROS evaluated with pertinent positives noted per HPI PHYSICAL EXAM General: Alert, Oriented X3, Cooperative, No acute distress HEENT: Atraumatic, Mucous membr. moist/pink Lungs: Clear to auscultation, Normal air movement Heart: Regular rate (SR/ST), Normal S1, Normal S2, Other (2/6 systolic murmur to apex) Abdomen: Soft, No tenderness Extremities: No cyanosis, No edema Skin: No breakdown, No significant lesion Neuro: Normal speech, Sensation intact Psych/Mental Status: Mental status NL, Mood NL MUSCULOSKELETAL: Osteoarthritic changes both hands VITALS/I&O VITALS/I&O: Vital Signs Date Time Temp Pulse Resp B/P (MAP) Pulse Ox O2 Delivery O2 Flow Rate FiO2 04/16/19 11:00 98.9 90 18 115/56 (75) 97 2.0 98.9 04/16/19 07:00 Nasal Cannula I & O 04/15/19 04/15/19 04/16/19 15:00 23:00 07:00 Intake Total 2100 ml Balance 2100 ml LABS Lab: Laboratory Tests Test 04/15/19 18:45 04/15/19 20:23 04/15/19 20:25 04/15/19 22:13 White Blood Count 12.3 x10^3/uL (4.0-11.0) H Red Blood Count 4.22 x10^6/uL (3.50-5.40) Hemoglobin 12.3 g/dL (12.0-15.5) Hematocrit 37.8 % (36.0-47.0) Mean Corpuscular Volume 90 fL (79-100) Mean Corpuscular Hemoglobin 29 pg (25-35) Mean Corpuscular Hemoglobin Concent 33 g/dL (31-37) Red Cell Distribution Width 13.7 % (11.5-14.5) Platelet Count 155 x10^3/uL (140-400) Neutrophils (%) (Auto) 82 % (31-73) H Lymphocytes (%) (Auto) 7 % (24-48) L Monocytes (%) (Auto) 11 % (0-9) H Eosinophils (%) (Auto) 0 % (0-3) Basophils (%) (Auto) 0 % (0-3) Neutrophils # (Auto) 10.2 x10^3/uL (1.8-7.7) H Lymphocytes # (Auto) 0.9 x10^3/uL (1.0-4.8) L Monocytes # (Auto) 1.3 x10^3/uL (0.0-1.1) H Eosinophils # (Auto) 0.0 x10^3/uL (0.0-0.7) Basophils # (Auto) 0.0 x10^3/uL (0.0-0.2) Sodium Level 145 mmol/L (136-145) Potassium Level 3.6 mmol/L (3.5-5.1) Chloride Level 108 mmol/L (98-107) H Carbon Dioxide Level 27 mmol/L (21-32) Anion Gap 10 (6-14) Blood Urea Nitrogen 19 mg/dL (7-20) Creatinine 1.0 mg/dL (0.6-1.0) Estimated GFR (Cockcroft-Gault) 55.0 BUN/Creatinine Ratio 19 (6-20) Glucose Level 161 mg/dL (70-99) H Lactic Acid Level 1.7 mmol/L (0.4-2.0) Calcium Level 9.6 mg/dL (8.5-10.1) Magnesium Level 1.9 mg/dL (1.8-2.4) Total Bilirubin 0.3 mg/dL (0.2-1.0) Aspartate Amino Transferase (AST) 20 U/L (15-37) Alanine Aminotransferase (ALT) 33 U/L (14-59) Alkaline Phosphatase 64 U/L (46-116) Creatine Kinase 83 U/L (26-192) Creatine Kinase MB (Mass) 0.6 ng/mL (0.0-3.6) Creatine Kinase MB Relative Index 0.7 % (0-4) Troponin I Quantitative < 0.017 ng/mL (0.000-0.055) IF-Zol-M-Type Natriuretic Peptide 203 pg/mL (0-124) H Total Protein 7.5 g/dL (6.4-8.2) Albumin 3.3 g/dL (3.4-5.0) L Albumin/Globulin Ratio 0.8 (1.0-1.7) L Lipase 112 U/L (73-393) Procalcitonin 0.18 ng/mL (0.00-0.10) H Thyroid Stimulating Hormone (TSH) 0.577 uIU/mL (0.358-3.74) Influenza Type A Antigen Negative (NEGATIVE) Influenza Type B Antigen Negative (NEGATIVE) Group A Streptococcus Rapid Negative (NEGATIVE) Urine Collection Type U cath Urine Color Yellow Urine Clarity Clear Urine pH 6.0 Urine Specific [place] 1.025 Urine Protein 100 mg/dL (NEG-TRACE) Urine Glucose (UA) Negative mg/dL (NEG) Urine Ketones (Stick) Negative mg/dL (NEG) Urine Blood Moderate (NEG) Urine Nitrite Positive (NEG) Urine Bilirubin Negative (NEG) Urine Urobilinogen Dipstick 0.2 mg/dL (0.2 mg/dL) Urine Leukocyte Esterase Large (NEG) Urine RBC 20-40 /HPF (0-2) Urine WBC Tntc /HPF (0-4) Urine Squamous Epithelial Cells Occ /LPF Urine Bacteria Many /HPF (0-FEW) Urine Hyaline Casts Few /HPF Test 04/16/19 03:27 04/16/19 04:10 Glucose (Fingerstick) 163 mg/dL (70-99) H White Blood Count 11.7 x10^3/uL (4.0-11.0) H Red Blood Count 3.92 x10^6/uL (3.50-5.40) Hemoglobin 11.6 g/dL (12.0-15.5) L Hematocrit 35.3 % (36.0-47.0) L Mean Corpuscular Volume 90 fL (79-100) Mean Corpuscular Hemoglobin 30 pg (25-35) Mean Corpuscular Hemoglobin Concent 33 g/dL (31-37) Red Cell Distribution Width 13.6 % (11.5-14.5) Platelet Count 131 x10^3/uL (140-400) L Neutrophils (%) (Auto) 80 % (31-73) H Lymphocytes (%) (Auto) 8 % (24-48) L Monocytes (%) (Auto) 12 % (0-9) H Eosinophils (%) (Auto) 0 % (0-3) Basophils (%) (Auto) 1 % (0-3) Neutrophils # (Auto) 9.3 x10^3/uL (1.8-7.7) H Lymphocytes # (Auto) 0.9 x10^3/uL (1.0-4.8) L Monocytes # (Auto) 1.4 x10^3/uL (0.0-1.1) H Eosinophils # (Auto) 0.0 x10^3/uL (0.0-0.7) Basophils # (Auto) 0.1 x10^3/uL (0.0-0.2) Sodium Level 143 mmol/L (136-145) Potassium Level 3.5 mmol/L (3.5-5.1) Chloride Level 108 mmol/L (98-107) H Carbon Dioxide Level 24 mmol/L (21-32) Anion Gap 11 (6-14) Blood Urea Nitrogen 15 mg/dL (7-20) Creatinine 1.0 mg/dL (0.6-1.0) Estimated GFR (Cockcroft-Gault) 55.0 Glucose Level 171 mg/dL (70-99) H Lactic Acid Level 1.3 mmol/L (0.4-2.0) Calcium Level 9.0 mg/dL (8.5-10.1) Laboratory Tests 04/15/19 18:45 04/16/19 04:10 Laboratory Tests 04/15/19 18:45 04/16/19 04:10 ECHOCARDIOGRAM ECHOCARDIOGRAM <Conclusion> Left ventricular systolic function is normal. The Ejection Fraction is 60-65%. Tissue Doppler imaging reveals abnormal left ventricular diastolic dysfunction. Mitral regurgitation is mild. There is trace tricuspid regurgitation. The IVC is normal in size and collapses >50% with inspiration. There is no pericardial effusion. DATE: 06/17/13 0826 HEART CATH HEART CATH Left Ventricle The left ventricle is normal in size with normal contractility. The left ventricular ejection fraction is estimated to be 65%. The left ventricular end diastolic pressure is 26 mmHg. There was no gradient across the aortic valve upon pullback. Conclusion Normal left main coronary artery. No significant intraluminal CAD appreciated. Normal LV function with ejection fraction calculated to be 65% Elevated LVEDP consistent with diastolic dysfunction. DATE: 07/23/13 1318 ASSESSMENT/PLAN ASSESSMENT/PLAN 1. Fever with severe UTI with possible pyelonephritis/lithiasis 2. Tachycardia: SR/ST with noted brief episodes of rate induced aberrancy with no changes to vectors 3. MOHINDER: CPAP use 4. HTN: controlled Recommendations 1. Pt does not have any cardiac symptoms. Will obtain TTE for completeness oth erwise no further w/u if unremarkable 2. Antipyretics, antibiotics and further imaging per PCP. BENITA CLEMENT APRN Apr 16, 2019 11:55
--- NOTE | 2019-04-16 12:09 | HP ---
ADMIT DATE: 04/16/2019 CHIEF COMPLAINT: Fever, tachycardia. HISTORY OF PRESENT ILLNESS: The patient is a pleasant middle-aged female. 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 Basically, she presented with sepsis picture. She had fever and tachycardia. We put her on IV antibiotics. We also consulted Cardiology and Infectious Disease. I saw Cardiology today in the room. They feel like this is probably not cardiac issue, but rather just from the sepsis. I am going to go ahead and get her home meds going and give her some IV antibiotics and await ID input. PAST MEDICAL HISTORY: Asthma, arthritis, COPD, hypertension, obstructive sleep apnea, fibromyalgia, right knee replacement. ALLERGIES: ADHESIVE TAPE, BACTRIM, CHOCOLATE, CORN, FORMALDEHYDE, NICKEL, OATS, ORANGES, PEANUTS AND TUNA. FAMILY HISTORY: Coronary artery disease. 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 She lives at the [employer] where they have about 25 people there. She has never smoked, even though she has COPD. MEDICATIONS: Reviewed, please refer to the MRAD. REVIEW OF SYSTEMS: GENERAL: No history of weight change, weakness. She complains of intermittent fevers. SKIN: No bruising, hair changes or rashes. EYES: No blurred, double or loss of vision. NOSE AND THROAT: No history of nosebleeds, hoarseness or sore throat. HEART: She complains of palpitations. LUNGS: Complains of cough and shortness of breath. GASTROINTESTINAL: Denies changes in appetite, nausea, vomiting, diarrhea or constipation. GENITOURINARY: No history of frequency, urgency, hesitancy or nocturia. NEUROLOGIC: Denies history of numbness, tingling, tremor or weakness. PSYCHIATRIC: No history of panic, anxiety or depression. ENDOCRINE: No history of heat or cold intolerance, polyuria or polydipsia. EXTREMITIES: Denies muscle weakness, joint pain, pain on walking or stiffness. PHYSICAL EXAMINATION: VITALS: Temperature has been as high as 103.0, now is down to 98.9. GENERAL: No apparent distress. Alert and oriented. HEENT: Head is normocephalic, atraumatic, pupils were equally round and reactive to light and accommodation. NECK: Supple, no JVD, no thyromegaly was noted. LUNGS: She has a cough. HEART: RRR, S1, S2 present. Peripheral pulses intact, no obvious murmurs were noted. ABDOMEN: Soft, nontender. Positive bowel sounds no organomegaly, normal bowel sounds. EXTREMITIES: Without any cyanosis, clubbing, or edema. Pedal pulses intact, Homans sign is negative. NEUROLOGIC: Normal speech, normal tone. A and O x3, moves all extremities, no obvious focal deficits. PSYCHIATRIC: Normal affect, normal mood. Stable. SKIN: No ulcerations or rashes, good skin turgor, no jaundice. VASCULAR: Good capillary refill, neurovascular bundle appears to be intact. LABORATORY DATA: White count is 12.3, hemoglobin is 12.3, platelets 155. Electrolytes normal. Glucose is 163. Prolactin 0.18. Urinalysis, large amounts of leukocyte esterase and too numerous to count white cells. ASSESSMENT AND PLAN: Sepsis and bronchitis and urinary tract infection. The patient will be admitted. We will give her IV antibiotics. Consult Pulmonary. Continue her home meds. Consult Cardiology. Consult Infectious Disease. Deep venous thrombosis prophylaxis. Full code. GLADIS PARKER DO DR: MEDINA/justine JOB#: [id number] / [id number]
[2019-04-16] MEDS: ACETAMINOPHEN 500 MG TABLET PO SCH ×2 (12:42→17:44)
--- NOTE | 2019-04-16 12:43 | CONS ---
DATE OF CONSULTATION: 04/16/2019 PULMONARY CONSULTATION ATTENDING PHYSICIAN: Dr. Tan. REASON FOR CONSULTATION: COPD, fever. 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 May have been from second-hand tobacco exposure. She has a history of sleep apnea and uses CPAP on a nightly basis. She was doing reasonably well until a few days ago when she woke up and she had fever, chills and body aches and generalized weakness. The patient had a fever of 103.5 and was tachycardic. Influenza screen was negative. Chest x-ray was reviewed by me and shows poor inspiratory effort, but no definite consolidation seen. The interstitial markings appeared slightly prominent probably from the poor inspiratory effort. Her urine is showing white blood cell count too numerous to count. She had a fever of 102.5 this morning. She is currently on broad-spectrum antibiotic with vancomycin and Zosyn. I have been asked to see her for further evaluation. She appears ill, but no obvious shortness of breath. She has a mild cough, which is productive of white sputum. No chest pains. No nausea, vomiting, no diarrhea. PAST MEDICAL HISTORY: Significant for questionable COPD. Never smoked cigarettes. History of sleep apnea, was on CPAP, history of seasonal allergies, peripheral vascular disease, hypertension, fibromyalgia, arthritis, fatty liver disease, venous ulcer and past surgery on her left leg for ulcers. PAST SURGICAL HISTORY: Cataract extraction, cardiac catheterization, right partial knee replacement in 2011. SOCIAL HISTORY: Nonsmoker. 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 FAMILY HISTORY: Noncontributory. ALLERGIES: All reviewed as listed in the MRAD. MEDICATIONS: All reviewed as listed in the MRAD. REVIEW OF SYSTEMS: Limited, but pertinent positives discussed in my history of present illness, otherwise noncontributory. PHYSICAL EXAMINATION: VITAL SIGNS: T-max of 102.5, blood pressure stable, pulse ox 97% on 2 liters. NECK: Supple. LUNGS: With diminished breath sounds. CARDIOVASCULAR: Regular rate. ABDOMEN: Soft, obese. EXTREMITIES: No pitting edema. LABORATORY DATA: Reviewed. Urine with too numerous white cells. BUN and creatinine normal. Procalcitonin 0.18 and white cell count 11.7. IMPRESSION: 1. High-grade fever/sepsis/SIRS. Likely source bladder infection. No clinical symptoms to suggest respiratory tract infection. 2. Urinary tract infection. 3. Questionable history of chronic obstructive pulmonary disease. She never smoked cigarettes, but may have some second-hand tobacco exposure. It is certainly not causing any issues at present. 4. History of sleep apnea, on CPAP. RECOMMENDATIONS: 1. Continue with present oxygen. Keep saturation 94 and above. 2. Broad-spectrum antibiotic per Infectious Disease and follow their recommendation. 3. Follow blood cultures, urine cultures. 4. We will repeat chest x-ray if clinically indicated. 5. CPAP at bedtime once she feels better. 6. dc IV steroids 7. 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 Discussed with RN. ADAN BISHOP MD DR: JULITA/justine JOB#: [id number] / [id number] WING
--- NOTE | 2019-04-16 13:56 | NUR ---
SS following for discharge planning. SS reviewed pt chart. Pt is from the [facility] [employer] [facility] [employer], , and is currently requiring oxygen. SS will continue to follow for discharge planning.
[2019-04-16] MEDS ORDERED: IOHEXOL 240 MG/ML 50ML VIAL. PO ONE (14:00)
[2019-04-16] MEDS ORDERED: IOHEXOL 300 MG/ML 100ML VIAL. IV ONE (14:00)
[2019-04-16] MEDS ORDERED: CONTRAST GIVEN. MC PRN (14:00)
[2019-04-16 15:00] VITALS: BP 105/60
[2019-04-16] MEDS: GABAPENTIN 100 MG CAPSULE. PO SCH (17:44)
[2019-04-16] MEDS: cycloSPORINE 0.05% OPHTH DROPERETTE. OU SCH ×2 (17:44→21:57)
--- NOTE | 2019-04-16 17:46 | RAD ---
Examination: CT of the abdomen pelvis with oral and IV contrast HISTORY: History of fever, sepsis COMPARISON: None available TECHNIQUE: Axial CT images of the abdomen pelvis were performed with oral and IV contrast . Exposure: One or more of the following individualized dose reduction techniques were utilized for this examination: 1. Automated exposure control 2. Adjustment of the mA and/or kV according to patient size 3. Use of iterative reconstruction technique Findings: Mild bibasilar lung atelectasis. No evidence of free air identified in the abdomen. There is diffuse decreased attenuation noted in the liver likely hepatic steatosis. Multiple cystic structures identified in the liver with the largest measuring 2.2 cm likely cysts. The spleen, adrenals grossly appears unremarkable. Gallstones identified within the proximal gallbladder. The gallbladder is mildly distended. Small hiatal hernia. The stomach is mildly distended. The visualized pancreas grossly appears unremarkable. The small bowel is nondilated. Feces and gas noted in the colon. Cystic structures identified in the left kidney with the largest measuring 2.1 cm. Mild left-sided hydronephrosis identified. There is mild fat stranding identified in the left kidney and around the left ureter. Obvious radiopaque calculus is not evident. The caliber of the aorta grossly appears unremarkable. Urinary bladder is mildly distended. No evidence of lytic bony destructive lesion. Small fat-containing umbilical hernia. IMPRESSION: 1. Mild left-sided hydronephrosis and hydroureter without radiopaque obstructing calculus. There is mild fat stranding identified about the left kidney and left ureter likely urinary tract infection. 2. Cholelithiasis. 3. Cystic structures identified in the liver probably cysts however evaluation is limited. Consider follow-up ultrasound for further evaluation. Electronically signed by: Brent Chawla MD (04/16/2019 5:43 PM) [id number]
[2019-04-16 19:00] VITALS: BP 106/56
[2019-04-16] MEDS: VANCOMYCIN 1.25 GM in IV NORMAL SALINE 250ML 250 ML IV SCH (19:56)
[2019-04-16 23:00] VITALS: BP 102/56
[2019-04-17] MEDS: PIPERACILLIN/TAZOBACTAM 3.375 GM in IV NORMAL SALINE 50ML 50 ML IV SCH ×5 (00:23→23:57)
[2019-04-17 03:00] VITALS: BP 104/56
[2019-04-17 05:52] LABS: BASO % 0 % (0-3); EOS % 0 % (0-3); HEMATOCRIT 33.6 % (36.0-47.0); HEMOGLOBIN 11.1 g/dL (12.0-15.5); LYMPH # 1.9 x10^3/uL (1.0-4.8); LYMPH % 19 % (24-48); MEAN CORPUSCULAR HEMOGLOBIN 30 pg (25-35); MEAN CORPUSCULAR HGB CONC 33 g/dL (31-37); MEAN CORPUSCULAR VOLUME 91 fL (79-100); MONO # 1.5 x10^3/uL (0.0-1.1); MONO % 15 % (0-9); NEUT # 6.6 x10^3/uL (1.8-7.7); NEUT % 66 % (31-73); PLATELET COUNT 122 x10^3/uL (140-400); RED BLOOD COUNT 3.71 x10^6/uL (3.50-5.40); RED CELL DISTRIBUTION WIDTH 13.6 % (11.5-14.5)
[2019-04-17 06:17] LABS: ALBUMIN 2.5 g/dL (3.4-5.0); ALBUMIN/GLOBULIN RATIO 0.6 (1.0-1.7); CALCIUM 8.8 mg/dL (8.5-10.1); CREATININE 0.9 mg/dL (0.6-1.0); GFR 62.1; POTASSIUM 3.5 mmol/L (3.5-5.1); TOTAL BILIRUBIN 0.2 mg/dL (0.2-1.0); TOTAL PROTEIN 6.6 g/dL (6.4-8.2)
[2019-04-17 07:00] VITALS: BP 109/56
[2019-04-17] MEDS ORDERED: FUROSEMIDE 20 MG TABLET PO SCH (09:00)
[2019-04-17] MEDS ORDERED: POTASSIUM CHLORIDE 10 MEQ TABLET.ER. PO SCH (09:00)
[2019-04-17] MEDS ORDERED: ASPIRIN ENTERIC COATED 81 MG TABLET.DR. PO SCH (09:00)
[2019-04-17] MEDS: POLYETHYLENE GLYCOL 3350 17 GM PACKET. PO SCH (09:00)
[2019-04-17] MEDS: ACETAMINOPHEN 500 MG TABLET PO SCH ×3 (09:00→17:24)
[2019-04-17] MEDS: cycloSPORINE 0.05% OPHTH DROPERETTE. OU SCH ×2 (09:00→20:54)
[2019-04-17] MEDS: LACTOBACILLUS RHAMNOSUS GG 1 CAPSULE. PO SCH ×2 (09:01→20:54)
[2019-04-17] MEDS: ASPIRIN CHEWABLE 81 MG TABLET. PO SCH (09:01)
[2019-04-17] MEDS: amLODIPine BESYLATE 5 MG TABLET PO SCH (09:01)
[2019-04-17] MEDS: traMADol 50 MG TABLET PO SCH (09:02)
[2019-04-17] MEDS: POTASSIUM CHLORIDE 10 MEQ TABLET.ER. PO SCH (09:02)
[2019-04-17] MEDS: DOCUSATE SODIUM 100 MG CAPSULE. PO SCH ×2 (09:02→20:54)
[2019-04-17] MEDS: MONTELUKAST SODIUM 10 MG TABLET. PO SCH (09:02)
--- NOTE | 2019-04-17 09:25 | PDOC ---
Infectious Disease Note Subjective Subjective Feeling better + BM Ate breakfast + sinus congestion and phlegm Supplemental O2 No fevers last 24 hours Denies N/V/D/SOA/chills ROS ROS per HPI Vital Sign Vital Signs Vital Signs Date Time Temp Pulse Resp B/P (MAP) Pulse Ox O2 Delivery O2 Flow Rate FiO2 04/17/19 09:01 64 109/56 04/17/19 07:00 97.4 16 98 2.0 97.4 04/16/19 23:00 Nasal Cannula Physical Exam PHYSICAL EXAM GENERAL: Propped up in bed, alert, smiling. HEENT: Pupils equally round. Oropharynx pink and moist. NECK: Supple. LUNGS: Clear to auscultation. HEART: S1, S2. ABDOMEN: Obese, soft, nontender. EXTREMITIES: No gross edema or cyanosis. SKIN: Warm to touch. No signs of rash. NEUROLOGIC: Alert, answers a few questions appropriately. Labs Lab Laboratory Tests Test 04/17/19 05:21 White Blood Count 10.0 x10^3/uL (4.0-11.0) Red Blood Count 3.71 x10^6/uL (3.50-5.40) Hemoglobin 11.1 g/dL (12.0-15.5) Hematocrit 33.6 % (36.0-47.0) Mean Corpuscular Volume 91 fL (79-100) Mean Corpuscular Hemoglobin 30 pg (25-35) Mean Corpuscular Hemoglobin Concent 33 g/dL (31-37) Red Cell Distribution Width 13.6 % (11.5-14.5) Platelet Count 122 x10^3/uL (140-400) Neutrophils (%) (Auto) 66 % (31-73) Lymphocytes (%) (Auto) 19 % (24-48) Monocytes (%) (Auto) 15 % (0-9) Eosinophils (%) (Auto) 0 % (0-3) Basophils (%) (Auto) 0 % (0-3) Neutrophils # (Auto) 6.6 x10^3/uL (1.8-7.7) Lymphocytes # (Auto) 1.9 x10^3/uL (1.0-4.8) Monocytes # (Auto) 1.5 x10^3/uL (0.0-1.1) Eosinophils # (Auto) 0.0 x10^3/uL (0.0-0.7) Basophils # (Auto) 0.0 x10^3/uL (0.0-0.2) Sodium Level 142 mmol/L (136-145) Potassium Level 3.5 mmol/L (3.5-5.1) Chloride Level 108 mmol/L (98-107) Carbon Dioxide Level 26 mmol/L (21-32) Anion Gap 8 (6-14) Blood Urea Nitrogen 17 mg/dL (7-20) Creatinine 0.9 mg/dL (0.6-1.0) Estimated GFR (Cockcroft-Gault) 62.1 BUN/Creatinine Ratio 19 (6-20) Glucose Level 127 mg/dL (70-99) Calcium Level 8.8 mg/dL (8.5-10.1) Total Bilirubin 0.2 mg/dL (0.2-1.0) Aspartate Amino Transf (AST/SGOT) 13 U/L (15-37) Alanine Aminotransferase (ALT/SGPT) 21 U/L (14-59) Alkaline Phosphatase 47 U/L (46-116) Total Protein 6.6 g/dL (6.4-8.2) Albumin 2.5 g/dL (3.4-5.0) Albumin/Globulin Ratio 0.6 (1.0-1.7) Findings: Mild bibasilar lung atelectasis. No evidence of free air identified in the abdomen. There is diffuse decreased attenuation noted in the liver likely hepatic steatosis. Multiple cystic structures identified in the liver with the largest measuring 2.2 cm likely cysts. The spleen, adrenals grossly appears unremarkable. Gallstones identified within the proximal gallbladder. The gallbladder is mildly distended. Small hiatal hernia. The stomach is mildly distended. The visualized pancreas grossly appears unremarkable. The small bowel is nondilated. Feces and gas noted in the colon. Cystic structures identified in the left kidney with the largest measuring 2.1 cm. Mild left-sided hydronephrosis identified. There is mild fat stranding identified in the left kidney and around the left ureter. Obvious radiopaque calculus is not evident. The caliber of the aorta grossly appears unremarkable. Urinary bladder is mildly distended. No evidence of lytic bony destructive lesion. Small fat-containing umbilical hernia. IMPRESSION: 1. Mild left-sided hydronephrosis and hydroureter without radiopaque obstructing calculus. There is mild fat stranding identified about the left kidney and left ureter likely urinary tract infection. 2. Cholelithiasis. 3. Cystic structures identified in the liver probably cysts however evaluation is limited. Consider follow-up ultrasound for further evaluation. Micro Microbiology 04/16/19 Blood Culture - Preliminary, Resulted NO GROWTH AFTER 1 DAY Objective Assessment UTI, POA 04/15 Mild left-sided hydronephrosis and hydroureter on CT Acute encephalopathy - improving Fever - better Leukocytosis - better Sinus congestion ? COPD Plan Plan of Care Zosyn and vanc Monitor renal function closely, temp & WBCs f/u cultures Supportive care D/w nurse from [facility] D/w Dr. Abimbola Jennings in a chair and smiling. 30 ml post void D/w nurse from [facility] and nursing Attending Co-Sign Attending Co-Sign The patient was seen and interviewed as well as examined at the bedside. The chart was reviewed. The case was discussed. Agree with the plan of care. LA GREEN APRN Apr 17, 2019 09:25 DOUG GRACE MD Apr 17, 2019 17:26
--- NOTE | 2019-04-17 09:49 | PDOC ---
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 HEENT: Pupils equally round. Oropharynx pink and moist. NECK: Supple. LUNGS: Clear to auscultation. HEART: S1, S2. ABDOMEN: Obese, soft, nontender. EXTREMITIES: No gross edema or cyanosis. SKIN: Warm to touch. No signs of rash. NEUROLOGIC: Alert, answers a few questions appropriately. General: Alert, Oriented X3, Cooperative, No acute distress Heart: Regular rate (SR/ST), Normal S1, Normal S2, Other (2/6 systolic murmur to apex) Abdomen: Soft, No tenderness Extremities: No cyanosis, No edema Skin: No breakdown, No significant lesion Labs Labs: Laboratory Tests Test 04/17/19 05:21 White Blood Count 10.0 x10^3/uL (4.0-11.0) Red Blood Count 3.71 x10^6/uL (3.50-5.40) Hemoglobin 11.1 g/dL (12.0-15.5) Hematocrit 33.6 % (36.0-47.0) Mean Corpuscular Volume 91 fL (79-100) Mean Corpuscular Hemoglobin 30 pg (25-35) Mean Corpuscular Hemoglobin Concent 33 g/dL (31-37) Red Cell Distribution Width 13.6 % (11.5-14.5) Platelet Count 122 x10^3/uL (140-400) Neutrophils (%) (Auto) 66 % (31-73) Lymphocytes (%) (Auto) 19 % (24-48) Monocytes (%) (Auto) 15 % (0-9) Eosinophils (%) (Auto) 0 % (0-3) Basophils (%) (Auto) 0 % (0-3) Neutrophils # (Auto) 6.6 x10^3/uL (1.8-7.7) Lymphocytes # (Auto) 1.9 x10^3/uL (1.0-4.8) Monocytes # (Auto) 1.5 x10^3/uL (0.0-1.1) Eosinophils # (Auto) 0.0 x10^3/uL (0.0-0.7) Basophils # (Auto) 0.0 x10^3/uL (0.0-0.2) Sodium Level 142 mmol/L (136-145) Potassium Level 3.5 mmol/L (3.5-5.1) Chloride Level 108 mmol/L (98-107) Carbon Dioxide Level 26 mmol/L (21-32) Anion Gap 8 (6-14) Blood Urea Nitrogen 17 mg/dL (7-20) Creatinine 0.9 mg/dL (0.6-1.0) Estimated GFR (Cockcroft-Gault) 62.1 BUN/Creatinine Ratio 19 (6-20) Glucose Level 127 mg/dL (70-99) Calcium Level 8.8 mg/dL (8.5-10.1) Total Bilirubin 0.2 mg/dL (0.2-1.0) Aspartate Amino Transf (AST/SGOT) 13 U/L (15-37) Alanine Aminotransferase (ALT/SGPT) 21 U/L (14-59) Alkaline Phosphatase 47 U/L (46-116) Total Protein 6.6 g/dL (6.4-8.2) Albumin 2.5 g/dL (3.4-5.0) Albumin/Globulin Ratio 0.6 (1.0-1.7) Review of Systems Review of Systems: Denies chest pain Denies n/v/d Assessment and Plan Assessmemt and Plan Problems Medical Problems: (1) Pyelonephritis Status: Acute (2) Urinary tract infection Status: Acute Assessment Pyelonephritis Cholelithiasis UTI COPD Plan Consulted urology IV Abx per ID Steroids PT/OT O2 nasal canula PRN Appreciate pulm input Appreciate cardiology consult DVT prophylaxis Full code Discharge tomorrow if stable Comment Review of Relevant I have reviewed the following items keron (where applicable) has been applied. Medications: Current Medications Medications (Trade) Dose Ordered Sig/Fransico Route PRN Reason Start Time Stop Time Status Last Admin Dose Admin Vancomycin HCl 1.25 gm/Sodium Chloride 250 ml @ 167 mls/hr Q24H IV 04/16/19 18:00 04/16/19 19:56 Lactobacillus Rhamnosus (Culturelle) 1 cap BID PO 04/16/19 09:00 04/17/19 09:01 Acetaminophen (Tylenol) 1,000 mg TIDWMEALS PO 04/16/19 12:00 04/17/19 09:00 Amlodipine Besylate (Norvasc) 5 mg DAILY PO 04/16/19 10:00 04/17/19 09:01 Aspirin (Children'S Aspirin) 81 mg DAILY PO 04/16/19 10:00 04/17/19 09:01 Cyclosporine (Restasis) 1 drop BID OU 04/16/19 10:00 04/17/19 09:00 Docusate Sodium (Colace) 100 mg BID PO 04/16/19 10:00 04/17/19 09:02 Furosemide (Lasix) 20 mg SuTuThSa PO 04/17/19 09:00 04/17/19 09:01 Furosemide (Lasix) 40 mg MoWeFr PO 04/16/19 09:00 04/16/19 10:56 Gabapentin (Neurontin) 100 mg DAILY16 PO 04/16/19 16:00 04/16/19 17:44 Guaifenesin (Mucinex) 600 mg BID PO 04/16/19 21:00 04/17/19 09:00 Metformin HCl (Glucophage) 500 mg DAILY08 PO 04/16/19 10:00 04/16/19 13:53 DC 04/16/19 10:55 Montelukast Sodium (Singulair) 10 mg DAILY PO 04/16/19 10:00 04/17/19 09:02 Polyethylene Glycol (miraLAX PACKET) 17 gm DAILY PO 04/16/19 10:00 04/17/19 09:00 Potassium Chloride (Klor-Con) 10 meq DAILY PO 04/16/19 10:00 04/17/19 09:02 Tramadol HCl (Ultram) 50 mg DAILY PO 04/16/19 10:00 04/17/19 09:02 Methylprednisolone Sodium Succinate (SOLU-Medrol 40MG VIAL) 40 mg TID IV 04/16/19 10:00 04/16/19 12:18 DC 04/16/19 10:55 Piperacillin Sod/ Tazobactam Sod 3.375 gm/Sodium Chloride 50 ml @ 100 mls/hr Q6HRS IV 04/16/19 11:00 04/17/19 05:31 Iohexol (Omnipaque 300 Mg/ml) 60 ml 1X ONCE IV 04/16/19 14:00 04/16/19 14:01 DC 04/16/19 14:00 Iohexol (Omnipaque 240 Mg/ml) 30 ml 1X ONCE PO 04/16/19 14:00 04/16/19 14:01 DC 04/16/19 14:00 GLADIS PARKER III DO Apr 17, 2019 09:49
[2019-04-17 11:00] VITALS: BP 112/56
--- NOTE | 2019-04-17 11:51 | PDOC ---
PULMONARY PROGRESS NOTES Subjective more alert no soa fever resolved Vitals Vital Signs Date Time Temp Pulse Resp B/P (MAP) Pulse Ox O2 Delivery O2 Flow Rate FiO2 04/17/19 11:00 97.9 74 18 112/56 (74) 95 Room Air 97.9 04/17/19 08:00 2.0 General: Alert, No acute distress Lungs: Clear Cardiovascular: S1 Abdomen: Soft Neuro Exam: Alert Extremities: Other (1+edema) Skin: Warm Labs Laboratory Tests Test 04/15/19 18:45 04/15/19 20:23 04/15/19 20:25 04/15/19 22:13 White Blood Count 12.3 x10^3/uL (4.0-11.0) Red Blood Count 4.22 x10^6/uL (3.50-5.40) Hemoglobin 12.3 g/dL (12.0-15.5) Hematocrit 37.8 % (36.0-47.0) Mean Corpuscular Volume 90 fL (79-100) Mean Corpuscular Hemoglobin 29 pg (25-35) Mean Corpuscular Hemoglobin Concent 33 g/dL (31-37) Red Cell Distribution Width 13.7 % (11.5-14.5) Platelet Count 155 x10^3/uL (140-400) Neutrophils (%) (Auto) 82 % (31-73) Lymphocytes (%) (Auto) 7 % (24-48) Monocytes (%) (Auto) 11 % (0-9) Eosinophils (%) (Auto) 0 % (0-3) Basophils (%) (Auto) 0 % (0-3) Neutrophils # (Auto) 10.2 x10^3/uL (1.8-7.7) Lymphocytes # (Auto) 0.9 x10^3/uL (1.0-4.8) Monocytes # (Auto) 1.3 x10^3/uL (0.0-1.1) Eosinophils # (Auto) 0.0 x10^3/uL (0.0-0.7) Basophils # (Auto) 0.0 x10^3/uL (0.0-0.2) Sodium Level 145 mmol/L (136-145) Potassium Level 3.6 mmol/L (3.5-5.1) Chloride Level 108 mmol/L (98-107) Carbon Dioxide Level 27 mmol/L (21-32) Anion Gap 10 (6-14) Blood Urea Nitrogen 19 mg/dL (7-20) Creatinine 1.0 mg/dL (0.6-1.0) Estimated GFR (Cockcroft-Gault) 55.0 BUN/Creatinine Ratio 19 (6-20) Glucose Level 161 mg/dL (70-99) Lactic Acid Level 1.7 mmol/L (0.4-2.0) Calcium Level 9.6 mg/dL (8.5-10.1) Magnesium Level 1.9 mg/dL (1.8-2.4) Total Bilirubin 0.3 mg/dL (0.2-1.0) Aspartate Amino Transf (AST/SGOT) 20 U/L (15-37) Alanine Aminotransferase (ALT/SGPT) 33 U/L (14-59) Alkaline Phosphatase 64 U/L (46-116) Creatine Kinase 83 U/L (26-192) Creatine Kinase MB (Mass) 0.6 ng/mL (0.0-3.6) Creatine Kinase MB Relative Index 0.7 % (0-4) Troponin I Quantitative < 0.017 ng/mL (0.000-0.055) XH-Ldk-V-Type Natriuretic Peptide 203 pg/mL (0-124) Total Protein 7.5 g/dL (6.4-8.2) Albumin 3.3 g/dL (3.4-5.0) Albumin/Globulin Ratio 0.8 (1.0-1.7) Lipase 112 U/L (73-393) Procalcitonin 0.18 ng/mL (0.00-0.10) Thyroid Stimulating Hormone (TSH) 0.577 uIU/mL (0.358-3.74) Influenza Type A Antigen Negative (NEGATIVE) Influenza Type B Antigen Negative (NEGATIVE) Group A Streptococcus Rapid Negative (NEGATIVE) Urine Collection Type U cath Urine Color Yellow Urine Clarity Clear Urine pH 6.0 Urine Specific [place] 1.025 Urine Protein 100 mg/dL (NEG-TRACE) Urine Glucose (UA) Negative mg/dL (NEG) Urine Ketones (Stick) Negative mg/dL (NEG) Urine Blood Moderate (NEG) Urine Nitrite Positive (NEG) Urine Bilirubin Negative (NEG) Urine Urobilinogen Dipstick 0.2 mg/dL (0.2 mg/dL) Urine Leukocyte Esterase Large (NEG) Urine RBC 20-40 /HPF (0-2) Urine WBC Tntc /HPF (0-4) Urine Squamous Epithelial Cells Occ /LPF Urine Bacteria Many /HPF (0-FEW) Urine Hyaline Casts Few /HPF Test 04/16/19 03:27 04/16/19 04:10 04/17/19 05:21 Glucose (Fingerstick) 163 mg/dL (70-99) White Blood Count 11.7 x10^3/uL (4.0-11.0) 10.0 x10^3/uL (4.0-11.0) Red Blood Count 3.92 x10^6/uL (3.50-5.40) 3.71 x10^6/uL (3.50-5.40) Hemoglobin 11.6 g/dL (12.0-15.5) 11.1 g/dL (12.0-15.5) Hematocrit 35.3 % (36.0-47.0) 33.6 % (36.0-47.0) Mean Corpuscular Volume 90 fL (79-100) 91 fL (79-100) Mean Corpuscular Hemoglobin 30 pg (25-35) 30 pg (25-35) Mean Corpuscular Hemoglobin Concent 33 g/dL (31-37) 33 g/dL (31-37) Red Cell Distribution Width 13.6 % (11.5-14.5) 13.6 % (11.5-14.5) Platelet Count 131 x10^3/uL (140-400) 122 x10^3/uL (140-400) Neutrophils (%) (Auto) 80 % (31-73) 66 % (31-73) Lymphocytes (%) (Auto) 8 % (24-48) 19 % (24-48) Monocytes (%) (Auto) 12 % (0-9) 15 % (0-9) Eosinophils (%) (Auto) 0 % (0-3) 0 % (0-3) Basophils (%) (Auto) 1 % (0-3) 0 % (0-3) Neutrophils # (Auto) 9.3 x10^3/uL (1.8-7.7) 6.6 x10^3/uL (1.8-7.7) Lymphocytes # (Auto) 0.9 x10^3/uL (1.0-4.8) 1.9 x10^3/uL (1.0-4.8) Monocytes # (Auto) 1.4 x10^3/uL (0.0-1.1) 1.5 x10^3/uL (0.0-1.1) Eosinophils # (Auto) 0.0 x10^3/uL (0.0-0.7) 0.0 x10^3/uL (0.0-0.7) Basophils # (Auto) 0.1 x10^3/uL (0.0-0.2) 0.0 x10^3/uL (0.0-0.2) Sodium Level 143 mmol/L (136-145) 142 mmol/L (136-145) Potassium Level 3.5 mmol/L (3.5-5.1) 3.5 mmol/L (3.5-5.1) Chloride Level 108 mmol/L (98-107) 108 mmol/L (98-107) Carbon Dioxide Level 24 mmol/L (21-32) 26 mmol/L (21-32) Anion Gap 11 (6-14) 8 (6-14) Blood Urea Nitrogen 15 mg/dL (7-20) 17 mg/dL (7-20) Creatinine 1.0 mg/dL (0.6-1.0) 0.9 mg/dL (0.6-1.0) Estimated GFR (Cockcroft-Gault) 55.0 62.1 Glucose Level 171 mg/dL (70-99) 127 mg/dL (70-99) Lactic Acid Level 1.3 mmol/L (0.4-2.0) Calcium Level 9.0 mg/dL (8.5-10.1) 8.8 mg/dL (8.5-10.1) BUN/Creatinine Ratio 19 (6-20) Total Bilirubin 0.2 mg/dL (0.2-1.0) Aspartate Amino Transf (AST/SGOT) 13 U/L (15-37) Alanine Aminotransferase (ALT/SGPT) 21 U/L (14-59) Alkaline Phosphatase 47 U/L (46-116) Total Protein 6.6 g/dL (6.4-8.2) Albumin 2.5 g/dL (3.4-5.0) Albumin/Globulin Ratio 0.6 (1.0-1.7) Laboratory Tests Test 04/17/19 05:21 White Blood Count 10.0 x10^3/uL (4.0-11.0) Red Blood Count 3.71 x10^6/uL (3.50-5.40) Hemoglobin 11.1 g/dL (12.0-15.5) Hematocrit 33.6 % (36.0-47.0) Mean Corpuscular Volume 91 fL (79-100) Mean Corpuscular Hemoglobin 30 pg (25-35) Mean Corpuscular Hemoglobin Concent 33 g/dL (31-37) Red Cell Distribution Width 13.6 % (11.5-14.5) Platelet Count 122 x10^3/uL (140-400) Neutrophils (%) (Auto) 66 % (31-73) Lymphocytes (%) (Auto) 19 % (24-48) Monocytes (%) (Auto) 15 % (0-9) Eosinophils (%) (Auto) 0 % (0-3) Basophils (%) (Auto) 0 % (0-3) Neutrophils # (Auto) 6.6 x10^3/uL (1.8-7.7) Lymphocytes # (Auto) 1.9 x10^3/uL (1.0-4.8) Monocytes # (Auto) 1.5 x10^3/uL (0.0-1.1) Eosinophils # (Auto) 0.0 x10^3/uL (0.0-0.7) Basophils # (Auto) 0.0 x10^3/uL (0.0-0.2) Sodium Level 142 mmol/L (136-145) Potassium Level 3.5 mmol/L (3.5-5.1) Chloride Level 108 mmol/L (98-107) Carbon Dioxide Level 26 mmol/L (21-32) Anion Gap 8 (6-14) Blood Urea Nitrogen 17 mg/dL (7-20) Creatinine 0.9 mg/dL (0.6-1.0) Estimated GFR (Cockcroft-Gault) 62.1 BUN/Creatinine Ratio 19 (6-20) Glucose Level 127 mg/dL (70-99) Calcium Level 8.8 mg/dL (8.5-10.1) Total Bilirubin 0.2 mg/dL (0.2-1.0) Aspartate Amino Transf (AST/SGOT) 13 U/L (15-37) Alanine Aminotransferase (ALT/SGPT) 21 U/L (14-59) Alkaline Phosphatase 47 U/L (46-116) Total Protein 6.6 g/dL (6.4-8.2) Albumin 2.5 g/dL (3.4-5.0) Albumin/Globulin Ratio 0.6 (1.0-1.7) Medications Active Scripts Medications Dose Route/Sig Max Daily Dose Days Date Category Ventolin Hfa Inhaler (Albuterol Sulfate) 18 Gm Hfa.aer.ad 2 Puff INH QID 04/16/19 Reported Betamethasone Dipropionate 15 Gm Cream..g. 1 Sharita TP PRN DAILY PRN 04/16/19 Reported Aspercreme (Lidocaine HCl) 76.5 Gm Cream..g. 76.5 Gm TP PRN BID PRN 04/16/19 Reported Flonase Allergy Relief (Fluticasone Propionate) 9.9 Ml [place].susp 2 Sprays NS PRN BID PRN 04/16/19 Reported Ibuprofen 400 Mg Tablet 400 Mg PO BID PRN 04/16/19 Reported Restasis (Cyclosporine) 1 Each Droperette 1 Drop EACHEYE BID 04/16/19 Reported Miralax (Polyethylene Glycol 3350) 17 Gm Powd.pack 1 Packet PO DAILY 04/16/19 Reported Advair 250-50 Diskus (Fluticasone/Salmeterol) 1 Each Disk.w.dev 2 Puff IH BID 04/16/19 Reported Omeprazole 20 Mg Capsule.dr 1 Cap PO DAILY 04/16/19 Reported Aspirin 81 Mg Tab.chew 1 Tab PO DAILY 04/16/19 Reported Fish Oil 1,000 mg Softgel ([place]-3S/Dha/Epa/Fish Oil) 1 Each Capsule 1 Each PO BID 04/16/19 Reported Gabapentin (Gabapentin) 100 Mg Capsule 100 Mg PO DAILY16 04/16/19 Reported Acetaminophen 500 Mg Tablet 2 Tab PO TIDWMEALS 04/16/19 Reported Potassium Chloride 10 Meq Tab.sr.24h 10 Meq PO DAILY 04/16/19 Reported Furosemide 40 Mg Tablet 1 Tab PO QMWF 10/2/19 Reported Furosemide 20 Mg Tablet 1 Tab PO QTUTHSASU 04/16/19 Reported Vitamin D2 (Ergocalciferol (Vitamin D2)) 50,000 Unit Capsule 1 Cap PO WEEKLY 04/16/19 Reported Loratadine 10 Mg Tablet 1 Tab PO DAILY 04/16/19 Reported Mucinex (Guaifenesin) 600 Mg Tablet.er 400 Mg PO BID 04/16/19 Reported Metformin Hcl 500 Mg Tablet 500 Mg PO DAILY 12/14/16 Reported Norvasc (Amlodipine Besylate) 5 Mg Tablet 1 Tab PO DAILY 12/14/16 Reported Advair 250-50 Diskus (Fluticasone/Salmeterol) 1 Each Disk.w.dev 1 Each IH PRN BID 07/23/13 Reported Docusate Sodium 100 Mg Capsule 100 Mg PO BID 07/23/13 Reported Aspirin Ec (Aspirin) 81 Mg Tablet.dr 81 Mg PO DAILY 07/23/13 Reported Potassium Chloride 10 Meq Capsule.er 10 Meq PO DAILY 07/23/13 Reported Singulair Tablet (Montelukast Sodium) 10 Mg Tablet 10 Mg PO DAILY 07/23/13 Reported Tramadol Hcl 50 Mg Tablet 50 Mg PO DAILY 07/23/13 Reported Impression . 1. High-grade fever/sepsis/SIRS. Likely source bladder infection. No clinical symptoms to suggest respiratory tract infection. 2. Urinary tract infection. 3. Questionable history of chronic obstructive pulmonary disease. She never smoked cigarettes, but may have some second-hand tobacco exposure. It is certainly not causing any issues at present. 4. History of sleep apnea, on CPAP. Plan . 1. Continue with present oxygen. Keep saturation 94 and above. 2. Broad-spectrum antibiotic per Infectious Disease and follow their recommendation. 3. Follow blood cultures, urine cultures. 4. We will repeat chest x-ray if clinically indicated. 5. CPAP at bedtime once she feels better. 6. off IV steroids 7. 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 Discussed with KATIE. ADAN BISHOP MD Apr 17, 2019 11:50
--- NOTE | 2019-04-17 12:16 | PDOC2 ---
DARION WU 04/17/19 1216: UROLOGY CONSULT Date of Consult Date of Consult DATE: 04/17/19 TIME: 11:49 Identification/Chief Complaint Chief Complaint UTI, hydronephrosis Source Source: Chart review, Patient History of Present Illness Reason for Visit: 68yo with PMH of COPD, HTN, MOHINDER presented to ER for fever and tachycardia. She was admitted for for sepsis management on 04/16/19. She does have UTI and bronchitis. We were consulted for UTI and left hydronephrosis and hydroureter with no stone visualized on CT. Creatinine is normal. Today she is sitting up in recliner and states she is feeling much better. She has not had a fever today, denies nausea, vomiting, chills, dysuria, hematuria, urinary bother. She denies frequent UTIs. Past Medical History Cardiovascular: HTN Pulmonary: Asthma, Other (MOHINDER with CPAP use) CENTRAL NERVOUS SYSTEM: Other (No pertinent history) GI: Constipation Heme/Onc: No pertinent hx Hepatobiliary: No pertinent hx Psych: No pertinent hx Musculoskeletal: Osteoarthritis Rheumatologic: No pertinent hx Infectious disease: No pertinent hx ENT: Allergic Rhinitis Renal/: No pertinent hx Endocrine: No pertinent hx Dermatology: No pertinent hx Past Surgical History Past Surgical History: Cataract Removal, Other ([facility]) Family History Family History: Coronary Artery Disease Social History No ALCOHOL: none Drugs: None Lives: with Family Current Medications Current Medications Current Medications Acetaminophen (Tylenol) 1,000 mg TIDWMEALS PO Last administered on 04/17/19at 09:00; Start 04/16/19 at 12:00 Aspirin (Ecotrin) 81 mg DAILY PO ; Start 04/17/19 at 09:00; Status UNV Ergocalciferol (Vitamin D2) 50,000 unit Sa PO ; Start 04/19/19 at 09:00 Furosemide (Lasix) 20 mg SuTuThSa PO Last administered on 04/17/19at 09:01; St art 04/17/19 at 09:00 Gabapentin (Neurontin) 100 mg DAILY16 PO Last administered on 04/16/19at 17:44; Start 04/16/19 at 16:00 Guaifenesin (Mucinex) 600 mg BID PO Last administered on 04/17/19at 09:00; Start 04/16/19 at 21:00 Info (CONTRAST GIVEN -- Rx MONITORING) 1 each PRN DAILY PRN MC SEE COMMENTS; Start 04/16/19 at 14:00; Stop 04/18/19 at 13:59 Iohexol (Omnipaque 240 Mg/ml) 30 ml 1X ONCE PO Last administered on 04/16/19at 14:00; Start 04/16/19 at 14:00; Stop 04/16/19 at 14:01; Status DC Iohexol (Omnipaque 300 Mg/ml) 60 ml 1X ONCE IV Last administered on 04/16/19at 14:00; Start 04/16/19 at 14:00; Stop 04/16/19 at 14:01; Status DC Metformin HCl (Glucophage) 500 mg DAILY08 PO ; Start 04/19/19 at 08:00 Potassium Chloride (Klor-Con) 10 meq DAILY PO ; Start 04/17/19 at 09:00; Status UNV Vancomycin HCl (Vancomycin Trough Level) 1 each 1X ONCE MC ; Start 04/17/19 at 17:30; Stop 04/17/19 at 17:31 Vancomycin HCl 1.25 gm/Sodium Chloride 250 ml @ 167 mls/hr Q24H IV Last administered on 04/16/19at 19:56; Start 04/16/19 at 18:00 Allergies Allergies: Coded Allergies: adhesive tape (Verified Allergy, Intermediate, 04/16/19) bacitracin (Verified Allergy, Intermediate, 12/14/16) chocolate flavor (Verified Allergy, Intermediate, 04/16/19) corn (Verified Allergy, Intermediate, 04/16/19) formaldehyde (Verified Allergy, Intermediate, 04/16/19) nickel (Verified Allergy, Intermediate, 04/16/19) oats (Verified Allergy, Intermediate, 04/16/19) orange (Verified Allergy, Intermediate, 04/16/19) peanut (Verified Allergy, Intermediate, 04/16/19) tuna oil (Verified Allergy, Intermediate, 04/16/19) ROS Review Of Systems: CONSTITUTIONAL: No fever or chills EYES: No recent changes SKIN: No rash or itching CARDIOVASCULAR: No chest pain, syncope, palpitations, or edema RESPIRATORY: + cough GASTROINTESTINAL: No nausea, vomiting or abdominal pain NEUROLOGICAL: No headaches or weakness ENDOCRINE: No cold or heat intolerance GENITOURINARY: No urgency or frequency of urination MUSCULOSKELETAL: No back pain or joint pain LYMPHATICS: No enlarged lymph nodes PSYCHIATRIC: No anxiety or depression Physical Exam Physical Exam: General: Pleasant, no acute distress, well groomed Eyes: conjunctiva anicteric, eyes full range of motion ENT: moist oral mucosa, normal dentition Neck: Trachea midline, no masses Respiratory: unlabored breathing, not using accessory muscles Cardiovascular: Regular rate and rhythm, no peripheral edema Abdomen: nontender, nondistended, no hepatosplenomegaly, no masses : No CVAT Skin: no rashes or skin lesions on visualized skin Psych: normal mood, affect. Alert and oriented x 3. Vitals VITALS Vital Signs Date Time Temp Pulse Resp B/P (MAP) Pulse Ox O2 Delivery O2 Flow Rate FiO2 04/17/19 11:00 97.9 74 18 112/56 (74) 95 Room Air 97.9 04/17/19 08:00 2.0 Labs Labs Laboratory Tests Test 04/15/19 18:45 04/15/19 20:23 04/15/19 20:25 04/15/19 22:13 White Blood Count 12.3 x10^3/uL (4.0-11.0) Red Blood Count 4.22 x10^6/uL (3.50-5.40) Hemoglobin 12.3 g/dL (12.0-15.5) Hematocrit 37.8 % (36.0-47.0) Mean Corpuscular Volume 90 fL (79-100) Mean Corpuscular Hemoglobin 29 pg (25-35) Mean Corpuscular Hemoglobin Concent 33 g/dL (31-37) Red Cell Distribution Width 13.7 % (11.5-14.5) Platelet Count 155 x10^3/uL (140-400) Neutrophils (%) (Auto) 82 % (31-73) Lymphocytes (%) (Auto) 7 % (24-48) Monocytes (%) (Auto) 11 % (0-9) Eosinophils (%) (Auto) 0 % (0-3) Basophils (%) (Auto) 0 % (0-3) Neutrophils # (Auto) 10.2 x10^3/uL (1.8-7.7) Lymphocytes # (Auto) 0.9 x10^3/uL (1.0-4.8) Monocytes # (Auto) 1.3 x10^3/uL (0.0-1.1) Eosinophils # (Auto) 0.0 x10^3/uL (0.0-0.7) Basophils # (Auto) 0.0 x10^3/uL (0.0-0.2) Sodium Level 145 mmol/L (136-145) Potassium Level 3.6 mmol/L (3.5-5.1) Chloride Level 108 mmol/L (98-107) Carbon Dioxide Level 27 mmol/L (21-32) Anion Gap 10 (6-14) Blood Urea Nitrogen 19 mg/dL (7-20) Creatinine 1.0 mg/dL (0.6-1.0) Estimated GFR (Cockcroft-Gault) 55.0 BUN/Creatinine Ratio 19 (6-20) Glucose Level 161 mg/dL (70-99) Lactic Acid Level 1.7 mmol/L (0.4-2.0) Calcium Level 9.6 mg/dL (8.5-10.1) Magnesium Level 1.9 mg/dL (1.8-2.4) Total Bilirubin 0.3 mg/dL (0.2-1.0) Aspartate Amino Transf (AST/SGOT) 20 U/L (15-37) Alanine Aminotransferase (ALT/SGPT) 33 U/L (14-59) Alkaline Phosphatase 64 U/L (46-116) Creatine Kinase 83 U/L (26-192) Creatine Kinase MB (Mass) 0.6 ng/mL (0.0-3.6) Creatine Kinase MB Relative Index 0.7 % (0-4) Troponin I Quantitative < 0.017 ng/mL (0.000-0.055) EQ-Wwb-C-Type Natriuretic Peptide 203 pg/mL (0-124) Total Protein 7.5 g/dL (6.4-8.2) Albumin 3.3 g/dL (3.4-5.0) Albumin/Globulin Ratio 0.8 (1.0-1.7) Lipase 112 U/L (73-393) Procalcitonin 0.18 ng/mL (0.00-0.10) Thyroid Stimulating Hormone (TSH) 0.577 uIU/mL (0.358-3.74) Influenza Type A Antigen Negative (NEGATIVE) Influenza Type B Antigen Negative (NEGATIVE) Group A Streptococcus Rapid Negative (NEGATIVE) Urine Collection Type U cath Urine Color Yellow Urine Clarity Clear Urine pH 6.0 Urine Specific [place] 1.025 Urine Protein 100 mg/dL (NEG-TRACE) Urine Glucose (UA) Negative mg/dL (NEG) Urine Ketones (Stick) Negative mg/dL (NEG) Urine Blood Moderate (NEG) Urine Nitrite Positive (NEG) Urine Bilirubin Negative (NEG) Urine Urobilinogen Dipstick 0.2 mg/dL (0.2 mg/dL) Urine Leukocyte Esterase Large (NEG) Urine RBC 20-40 /HPF (0-2) Urine WBC Tntc /HPF (0-4) Urine Squamous Epithelial Cells Occ /LPF Urine Bacteria Many /HPF (0-FEW) Urine Hyaline Casts Few /HPF Test 04/16/19 03:27 04/16/19 04:10 04/17/19 05:21 Glucose (Fingerstick) 163 mg/dL (70-99) White Blood Count 11.7 x10^3/uL (4.0-11.0) 10.0 x10^3/uL (4.0-11.0) Red Blood Count 3.92 x10^6/uL (3.50-5.40) 3.71 x10^6/uL (3.50-5.40) Hemoglobin 11.6 g/dL (12.0-15.5) 11.1 g/dL (12.0-15.5) Hematocrit 35.3 % (36.0-47.0) 33.6 % (36.0-47.0) Mean Corpuscular Volume 90 fL (79-100) 91 fL (79-100) Mean Corpuscular Hemoglobin 30 pg (25-35) 30 pg (25-35) Mean Corpuscular Hemoglobin Concent 33 g/dL (31-37) 33 g/dL (31-37) Red Cell Distribution Width 13.6 % (11.5-14.5) 13.6 % (11.5-14.5) Platelet Count 131 x10^3/uL (140-400) 122 x10^3/uL (140-400) Neutrophils (%) (Auto) 80 % (31-73) 66 % (31-73) Lymphocytes (%) (Auto) 8 % (24-48) 19 % (24-48) Monocytes (%) (Auto) 12 % (0-9) 15 % (0-9) Eosinophils (%) (Auto) 0 % (0-3) 0 % (0-3) Basophils (%) (Auto) 1 % (0-3) 0 % (0-3) Neutrophils # (Auto) 9.3 x10^3/uL (1.8-7.7) 6.6 x10^3/uL (1.8-7.7) Lymphocytes # (Auto) 0.9 x10^3/uL (1.0-4.8) 1.9 x10^3/uL (1.0-4.8) Monocytes # (Auto) 1.4 x10^3/uL (0.0-1.1) 1.5 x10^3/uL (0.0-1.1) Eosinophils # (Auto) 0.0 x10^3/uL (0.0-0.7) 0.0 x10^3/uL (0.0-0.7) Basophils # (Auto) 0.1 x10^3/uL (0.0-0.2) 0.0 x10^3/uL (0.0-0.2) Sodium Level 143 mmol/L (136-145) 142 mmol/L (136-145) Potassium Level 3.5 mmol/L (3.5-5.1) 3.5 mmol/L (3.5-5.1) Chloride Level 108 mmol/L (98-107) 108 mmol/L (98-107) Carbon Dioxide Level 24 mmol/L (21-32) 26 mmol/L (21-32) Anion Gap 11 (6-14) 8 (6-14) Blood Urea Nitrogen 15 mg/dL (7-20) 17 mg/dL (7-20) Creatinine 1.0 mg/dL (0.6-1.0) 0.9 mg/dL (0.6-1.0) Estimated GFR (Cockcroft-Gault) 55.0 62.1 Glucose Level 171 mg/dL (70-99) 127 mg/dL (70-99) Lactic Acid Level 1.3 mmol/L (0.4-2.0) Calcium Level 9.0 mg/dL (8.5-10.1) 8.8 mg/dL (8.5-10.1) BUN/Creatinine Ratio 19 (6-20) Total Bilirubin 0.2 mg/dL (0.2-1.0) Aspartate Amino Transf (AST/SGOT) 13 U/L (15-37) Alanine Aminotransferase (ALT/SGPT) 21 U/L (14-59) Alkaline Phosphatase 47 U/L (46-116) Total Protein 6.6 g/dL (6.4-8.2) Albumin 2.5 g/dL (3.4-5.0) Albumin/Globulin Ratio 0.6 (1.0-1.7) Laboratory Tests Test 04/17/19 05:21 White Blood Count 10.0 x10^3/uL (4.0-11.0) Red Blood Count 3.71 x10^6/uL (3.50-5.40) Hemoglobin 11.1 g/dL (12.0-15.5) Hematocrit 33.6 % (36.0-47.0) Mean Corpuscular Volume 91 fL (79-100) Mean Corpuscular Hemoglobin 30 pg (25-35) Mean Corpuscular Hemoglobin Concent 33 g/dL (31-37) Red Cell Distribution Width 13.6 % (11.5-14.5) Platelet Count 122 x10^3/uL (140-400) Neutrophils (%) (Auto) 66 % (31-73) Lymphocytes (%) (Auto) 19 % (24-48) Monocytes (%) (Auto) 15 % (0-9) Eosinophils (%) (Auto) 0 % (0-3) Basophils (%) (Auto) 0 % (0-3) Neutrophils # (Auto) 6.6 x10^3/uL (1.8-7.7) Lymphocytes # (Auto) 1.9 x10^3/uL (1.0-4.8) Monocytes # (Auto) 1.5 x10^3/uL (0.0-1.1) Eosinophils # (Auto) 0.0 x10^3/uL (0.0-0.7) Basophils # (Auto) 0.0 x10^3/uL (0.0-0.2) Sodium Level 142 mmol/L (136-145) Potassium Level 3.5 mmol/L (3.5-5.1) Chloride Level 108 mmol/L (98-107) Carbon Dioxide Level 26 mmol/L (21-32) Anion Gap 8 (6-14) Blood Urea Nitrogen 17 mg/dL (7-20) Creatinine 0.9 mg/dL (0.6-1.0) Estimated GFR (Cockcroft-Gault) 62.1 BUN/Creatinine Ratio 19 (6-20) Glucose Level 127 mg/dL (70-99) Calcium Level 8.8 mg/dL (8.5-10.1) Total Bilirubin 0.2 mg/dL (0.2-1.0) Aspartate Amino Transf (AST/SGOT) 13 U/L (15-37) Alanine Aminotransferase (ALT/SGPT) 21 U/L (14-59) Alkaline Phosphatase 47 U/L (46-116) Total Protein 6.6 g/dL (6.4-8.2) Albumin 2.5 g/dL (3.4-5.0) Albumin/Globulin Ratio 0.6 (1.0-1.7) Images Images CT abdomen/pelvis with IV and oral contrast IMPRESSION: 1. Mild left-sided hydronephrosis and hydroureter without radiopaque obstructing calculus. There is mild fat stranding identified about the left kidney and left ureter likely urinary tract infection. 2. Cholelithiasis. 3. Cystic structures identified in the liver probably cysts however evaluation is limited. Consider follow-up ultrasound for further evaluation. Electronically signed by: Brent Chawla MD (04/16/2019 5:43 PM) [facility] Assessment/Plan Assessment/Plan UTI, Left pyelonephritis, hydronephrosis and hydroureter On abx per ID Afebrile today, Creatinine 0.9, WBC 10.0 down from 12.3 Will order MAG3 renal scan to further evaluate Continue to monitor kidney function EASTON BOWIE MD 04/17/19 6979: UROLOGY CONSULT Assessment/Plan Assessment/Plan Agree with assessment and plan. Suspect left ureteral reflux causing infection and hydronephrosis. Does not need additional treatment unless having recurrent febrile infections. Will get renal scan to verify no renal obstruction - low suspicion. DARION WU Apr 17, 2019 12:16 EASTON BOWIE MD Apr 17, 2019 14:05
[2019-04-17 14:58] VITALS: BP 117/58
[2019-04-17] MEDS: GABAPENTIN 100 MG CAPSULE. PO SCH (17:24)
[2019-04-17 18:22] LABS: VANC TR 6.7 mcg/mL (10.0-20.0)
[2019-04-17] MEDS: VANCOMYCIN 1.25 GM in IV NORMAL SALINE 250ML 250 ML IV SCH (18:31)
[2019-04-17] MEDS: VANCOMYCIN PER PHARMACY MC PRN (18:48)
--- NOTE | 2019-04-17 18:49 | NUR ---
Pharmacy Vancomycin Dosing Note S:Consulted to monitor and dose vancomycin started 04/15/19. O:SARA DAMON is a 68 year old F with Pyelonephritis UTI . Height: 5 feet, 2 inches Weight: 85.770897 kg [place] Body Weight: 50.10 Adjusted Body Weight: 61.62 Dosing Weight: Actual Other Antibiotics: ZOSYN 04/16 - LABS: Last BUN: 17 Last Creatinine: 0.9 Creatinine Clearance: 51 mL/min Last WBC: 11.7 Last Procalcitonin: 0.18 Tmax (past 24 hours): 103.5 RECTAL Microbiology: 04/16 PANCX PENDING I/O: Drug Levels: Last level: on at Last dose given 04/17/19 at 1900 Vancomycin Dosing: Loading Dose: 1750 mg x1 Dosing Weight: Actual Target Trough: 10-20 A: Based on: SUBTHERAPEUTIC TROUGH, P: 1. CHANGE DOSING TO Vancomycin 1250 mg IV q12h 2. Follow up Trough level NEEDED. 3. Pharmacy will continue to monitor, follow and adjust therapy as needed. GABRIELA JOLLY RPH, 04/17/19 2004
[2019-04-17 19:59] VITALS: BP 125/59
[2019-04-17 22:13] VITALS: BP 124/60
[2019-04-18 03:07] VITALS: BP 128/74
[2019-04-18] MEDS: ACETAMINOPHEN 500 MG TABLET PO SCH ×3 (05:32→16:39)
[2019-04-18] MEDS: PIPERACILLIN/TAZOBACTAM 3.375 GM in IV NORMAL SALINE 50ML 50 ML IV SCH ×2 (05:33→12:33)
[2019-04-18 06:01] LABS: BASO % 0 % (0-3); EOS # 0.2 x10^3/uL (0.0-0.7); EOS % 3 % (0-3); HEMATOCRIT 34.7 % (36.0-47.0); HEMOGLOBIN 11.4 g/dL (12.0-15.5); LYMPH # 2.2 x10^3/uL (1.0-4.8); LYMPH % 23 % (24-48); MEAN CORPUSCULAR HEMOGLOBIN 30 pg (25-35); MEAN CORPUSCULAR HGB CONC 33 g/dL (31-37); MEAN CORPUSCULAR VOLUME 90 fL (79-100); MONO % 11 % (0-9); NEUT # 6.1 x10^3/uL (1.8-7.7); NEUT % 64 % (31-73); PLATELET COUNT 144 x10^3/uL (140-400); RED BLOOD COUNT 3.85 x10^6/uL (3.50-5.40); RED CELL DISTRIBUTION WIDTH 13.7 % (11.5-14.5); WHITE BLOOD COUNT 9.6 x10^3/uL (4.0-11.0)
[2019-04-18 06:16] LABS: ALBUMIN 2.4 g/dL (3.4-5.0); ALBUMIN/GLOBULIN RATIO 0.6 (1.0-1.7); CALCIUM 8.7 mg/dL (8.5-10.1); CREATININE 0.8 mg/dL (0.6-1.0); GFR 71.1; POTASSIUM 3.8 mmol/L (3.5-5.1); TOTAL BILIRUBIN 0.2 mg/dL (0.2-1.0); TOTAL PROTEIN 6.7 g/dL (6.4-8.2)
[2019-04-18 07:00] VITALS: BP 125/64
[2019-04-18] MEDS ORDERED: VANCOMYCIN 1.25 GM in IV NORMAL SALINE 250ML 250 ML IV SCH (07:00)
[2019-04-18] MEDS: FUROSEMIDE 40 MG TABLET. PO SCH (09:00)
[2019-04-18] MEDS ORDERED: FUROSEMIDE 40 MG/4 ML VIAL. IVP ONE (09:00)
[2019-04-18] MEDS: DOCUSATE SODIUM 100 MG CAPSULE. PO SCH (09:00)
[2019-04-18] MEDS: VANCOMYCIN PER PHARMACY MC PRN (09:31)
[2019-04-18] MEDS: ASPIRIN CHEWABLE 81 MG TABLET. PO SCH (10:30)
[2019-04-18] MEDS: LACTOBACILLUS RHAMNOSUS GG 1 CAPSULE. PO SCH (10:30)
[2019-04-18] MEDS: MONTELUKAST SODIUM 10 MG TABLET. PO SCH (10:30)
[2019-04-18] MEDS: POLYETHYLENE GLYCOL 3350 17 GM PACKET. PO SCH (10:31)
[2019-04-18] MEDS: amLODIPine BESYLATE 5 MG TABLET PO SCH (10:31)
[2019-04-18] MEDS: POTASSIUM CHLORIDE 10 MEQ TABLET.ER. PO SCH (10:31)
[2019-04-18] MEDS: traMADol 50 MG TABLET PO SCH (10:32)
[2019-04-18] MEDS: cycloSPORINE 0.05% OPHTH DROPERETTE. OU SCH (10:33)
--- NOTE | 2019-04-18 10:33 | PDOC ---
PULMONARY PROGRESS NOTES Subjective more alert no soa fever resolved Vitals Vital Signs Date Time Temp Pulse Resp B/P (MAP) Pulse Ox O2 Delivery O2 Flow Rate FiO2 04/18/19 07:00 98.3 73 20 125/64 (84) 96 Room Air 98.3 04/17/19 20:00 2.0 General: Alert, No acute distress Lungs: Clear Cardiovascular: S1 Abdomen: Soft Neuro Exam: Alert Extremities: Other (1+edema) Skin: Warm Labs Laboratory Tests Test 04/17/19 05:21 04/17/19 17:50 04/18/19 04:33 White Blood Count 10.0 x10^3/uL (4.0-11.0) 9.6 x10^3/uL (4.0-11.0) Red Blood Count 3.71 x10^6/uL (3.50-5.40) 3.85 x10^6/uL (3.50-5.40) Hemoglobin 11.1 g/dL (12.0-15.5) 11.4 g/dL (12.0-15.5) Hematocrit 33.6 % (36.0-47.0) 34.7 % (36.0-47.0) Mean Corpuscular Volume 91 fL (79-100) 90 fL (79-100) Mean Corpuscular Hemoglobin 30 pg (25-35) 30 pg (25-35) Mean Corpuscular Hemoglobin Concent 33 g/dL (31-37) 33 g/dL (31-37) Red Cell Distribution Width 13.6 % (11.5-14.5) 13.7 % (11.5-14.5) Platelet Count 122 x10^3/uL (140-400) 144 x10^3/uL (140-400) Neutrophils (%) (Auto) 66 % (31-73) 64 % (31-73) Lymphocytes (%) (Auto) 19 % (24-48) 23 % (24-48) Monocytes (%) (Auto) 15 % (0-9) 11 % (0-9) Eosinophils (%) (Auto) 0 % (0-3) 3 % (0-3) Basophils (%) (Auto) 0 % (0-3) 0 % (0-3) Neutrophils # (Auto) 6.6 x10^3/uL (1.8-7.7) 6.1 x10^3/uL (1.8-7.7) Lymphocytes # (Auto) 1.9 x10^3/uL (1.0-4.8) 2.2 x10^3/uL (1.0-4.8) Monocytes # (Auto) 1.5 x10^3/uL (0.0-1.1) 1.0 x10^3/uL (0.0-1.1) Eosinophils # (Auto) 0.0 x10^3/uL (0.0-0.7) 0.2 x10^3/uL (0.0-0.7) Basophils # (Auto) 0.0 x10^3/uL (0.0-0.2) 0.0 x10^3/uL (0.0-0.2) Sodium Level 142 mmol/L (136-145) 145 mmol/L (136-145) Potassium Level 3.5 mmol/L (3.5-5.1) 3.8 mmol/L (3.5-5.1) Chloride Level 108 mmol/L (98-107) 109 mmol/L (98-107) Carbon Dioxide Level 26 mmol/L (21-32) 27 mmol/L (21-32) Anion Gap 8 (6-14) 9 (6-14) Blood Urea Nitrogen 17 mg/dL (7-20) 16 mg/dL (7-20) Creatinine 0.9 mg/dL (0.6-1.0) 0.8 mg/dL (0.6-1.0) Estimated GFR (Cockcroft-Gault) 62.1 71.1 BUN/Creatinine Ratio 19 (6-20) 20 (6-20) Glucose Level 127 mg/dL (70-99) 104 mg/dL (70-99) Calcium Level 8.8 mg/dL (8.5-10.1) 8.7 mg/dL (8.5-10.1) Total Bilirubin 0.2 mg/dL (0.2-1.0) 0.2 mg/dL (0.2-1.0) Aspartate Amino Transf (AST/SGOT) 13 U/L (15-37) 12 U/L (15-37) Alanine Aminotransferase (ALT/SGPT) 21 U/L (14-59) 21 U/L (14-59) Alkaline Phosphatase 47 U/L (46-116) 45 U/L (46-116) Total Protein 6.6 g/dL (6.4-8.2) 6.7 g/dL (6.4-8.2) Albumin 2.5 g/dL (3.4-5.0) 2.4 g/dL (3.4-5.0) Albumin/Globulin Ratio 0.6 (1.0-1.7) 0.6 (1.0-1.7) Vancomycin Level Trough 6.7 mcg/mL (10.0-20.0) Vancomycin Last Dose Date 04/16/19 Vancomycin Last Dose Time 1800 Laboratory Tests Test 04/17/19 17:50 04/18/19 04:33 Vancomycin Level Trough 6.7 mcg/mL (10.0-20.0) Vancomycin Last Dose Date 04/16/19 Vancomycin Last Dose Time 1800 White Blood Count 9.6 x10^3/uL (4.0-11.0) Red Blood Count 3.85 x10^6/uL (3.50-5.40) Hemoglobin 11.4 g/dL (12.0-15.5) Hematocrit 34.7 % (36.0-47.0) Mean Corpuscular Volume 90 fL (79-100) Mean Corpuscular Hemoglobin 30 pg (25-35) Mean Corpuscular Hemoglobin Concent 33 g/dL (31-37) Red Cell Distribution Width 13.7 % (11.5-14.5) Platelet Count 144 x10^3/uL (140-400) Neutrophils (%) (Auto) 64 % (31-73) Lymphocytes (%) (Auto) 23 % (24-48) Monocytes (%) (Auto) 11 % (0-9) Eosinophils (%) (Auto) 3 % (0-3) Basophils (%) (Auto) 0 % (0-3) Neutrophils # (Auto) 6.1 x10^3/uL (1.8-7.7) Lymphocytes # (Auto) 2.2 x10^3/uL (1.0-4.8) Monocytes # (Auto) 1.0 x10^3/uL (0.0-1.1) Eosinophils # (Auto) 0.2 x10^3/uL (0.0-0.7) Basophils # (Auto) 0.0 x10^3/uL (0.0-0.2) Sodium Level 145 mmol/L (136-145) Potassium Level 3.8 mmol/L (3.5-5.1) Chloride Level 109 mmol/L (98-107) Carbon Dioxide Level 27 mmol/L (21-32) Anion Gap 9 (6-14) Blood Urea Nitrogen 16 mg/dL (7-20) Creatinine 0.8 mg/dL (0.6-1.0) Estimated GFR (Cockcroft-Gault) 71.1 BUN/Creatinine Ratio 20 (6-20) Glucose Level 104 mg/dL (70-99) Calcium Level 8.7 mg/dL (8.5-10.1) Total Bilirubin 0.2 mg/dL (0.2-1.0) Aspartate Amino Transf (AST/SGOT) 12 U/L (15-37) Alanine Aminotransferase (ALT/SGPT) 21 U/L (14-59) Alkaline Phosphatase 45 U/L (46-116) Total Protein 6.7 g/dL (6.4-8.2) Albumin 2.4 g/dL (3.4-5.0) Albumin/Globulin Ratio 0.6 (1.0-1.7) Medications Active Scripts Medications Dose Route/Sig Max Daily Dose Days Date Category Ventolin Hfa Inhaler (Albuterol Sulfate) 18 Gm Hfa.aer.ad 2 Puff INH QID 04/16/19 Reported Betamethasone Dipropionate 15 Gm Cream..g. 1 Sharita TP PRN DAILY PRN 04/16/19 Reported Aspercreme (Lidocaine HCl) 76.5 Gm Cream..g. 76.5 Gm TP PRN BID PRN 04/16/19 Reported Flonase Allergy Relief (Fluticasone Propionate) 9.9 Ml [place].susp 2 Sprays NS PRN BID PRN 04/16/19 Reported Ibuprofen 400 Mg Tablet 400 Mg PO BID PRN 04/16/19 Reported Restasis (Cyclosporine) 1 Each Droperette 1 Drop EACHEYE BID 04/16/19 Reported Miralax (Polyethylene Glycol 3350) 17 Gm Powd.pack 1 Packet PO DAILY 04/16/19 Reported Advair 250-50 Diskus (Fluticasone/Salmeterol) 1 Each Disk.w.dev 2 Puff IH BID 04/16/19 Reported Omeprazole 20 Mg Capsule.dr 1 Cap PO DAILY 04/16/19 Reported Aspirin 81 Mg Tab.chew 1 Tab PO DAILY 04/16/19 Reported Fish Oil 1,000 mg Softgel ([place] Path-3S/Dha/Epa/Fish Oil) 1 Each Capsule 1 Each PO BID 04/16/19 Reported Gabapentin (Gabapentin) 100 Mg Capsule 100 Mg PO DAILY16 04/16/19 Reported Acetaminophen 500 Mg Tablet 2 Tab PO TIDWMEALS 04/16/19 Reported Potassium Chloride 10 Meq Tab.sr.24h 10 Meq PO DAILY 04/16/19 Reported Furosemide 40 Mg Tablet 1 Tab PO QMWF 04/16/19 Reported Furosemide 20 Mg Tablet 1 Tab PO QTUTHSASU 04/16/19 Reported Vitamin D2 (Ergocalciferol (Vitamin D2)) 50,000 Unit Capsule 1 Cap PO WEEKLY 04/16/19 Reported Loratadine 10 Mg Tablet 1 Tab PO DAILY 04/16/19 Reported Mucinex (Guaifenesin) 600 Mg Tablet.er 400 Mg PO BID 04/16/19 Reported Metformin Hcl 500 Mg Tablet 500 Mg PO DAILY 12/14/16 Reported Norvasc (Amlodipine Besylate) 5 Mg Tablet 1 Tab PO DAILY 12/14/16 Reported Advair 250-50 Diskus (Fluticasone/Salmeterol) 1 Each Disk.w.dev 1 Each IH PRN BID 07/23/13 Reported Docusate Sodium 100 Mg Capsule 100 Mg PO BID 07/23/13 Reported Aspirin Ec (Aspirin) 81 Mg Tablet.dr 81 Mg PO DAILY 07/23/13 Reported Potassium Chloride 10 Meq Capsule.er 10 Meq PO DAILY 07/23/13 Reported Singulair Tablet (Montelukast Sodium) 10 Mg Tablet 10 Mg PO DAILY 07/23/13 Reported Tramadol Hcl 50 Mg Tablet 50 Mg PO DAILY 07/23/13 Reported Impression . 1. High-grade fever/sepsis/SIRS. Likely source bladder infection. No clinical symptoms to suggest respiratory tract infection. much improved 2. Urinary tract infection. 3. Questionable history of chronic obstructive pulmonary disease. She never smoked cigarettes, but may have some second-hand tobacco exposure. It is certainly not causing any issues at present. 4. History of sleep apnea, on CPAP. Plan . 1. Continue with present oxygen. Keep saturation 94 and above. wean off if sats > 96% 2. Broad-spectrum antibiotic per Infectious Disease and follow their recommendation. 3. Follow blood cultures, urine cultures. Neg so far 4. We will repeat chest x-ray if clinically indicated. 5. CPAP at bedtime once she feels better. 6. off IV steroids 7. Discussed with her seeing eye dog teacher miken and will follow along with you. Discussed with RN. ok with dc home pulmonary [facility] if ok with ID ADAN BISHOP MD Apr 18, 2019 10:33
[2019-04-18 11:00] VITALS: BP 124/62
--- NOTE | 2019-04-18 12:43 | NUR ---
SS following up with discharge planning. Pt is currently on room air. PT recommending home with assistance. SS will continue to follow for discharge planning.
[2019-04-18] MEDS ORDERED: AMOX1TAB61 PO (13:38)
[2019-04-18] MEDS ORDERED: LACT1CAP19 PO (13:38)
--- NOTE | 2019-04-18 14:12 | PDOC ---
Infectious Disease Note Subjective Subjective Feeling gbetter Some sinus drainage and phlegm Mild back discomfort Off supplemental O2 Eating 100% meals + BM yesterday No fevers last 24 hours Denies N/V/D/SOA/dysuria/chills ROS ROS per HPI Vital Sign Vital Signs Vital Signs Date Time Temp Pulse Resp B/P (MAP) Pulse Ox O2 Delivery O2 Flow Rate FiO2 04/18/19 11:32 94 Room Air 04/18/19 11:00 98.3 75 20 124/62 (82) 98.3 04/17/19 20:00 2.0 Physical Exam PHYSICAL EXAM GENERAL: Reclining in the chair, alert, smiling HEENT: Pupils equally round. Oropharynx pink and moist. NECK: Supple. LUNGS: Clear to auscultation. HEART: S1, S2. ABDOMEN: Obese, soft, nontender. EXTREMITIES: No gross edema or cyanosis. SKIN: Warm to touch. No signs of rash. NEUROLOGIC: Alert, answers a few questions appropriately. PIV Labs Lab Laboratory Tests Test 04/17/19 17:50 04/18/19 04:33 Vancomycin Level Trough 6.7 mcg/mL (10.0-20.0) Vancomycin Last Dose Date 04/16/19 Vancomycin Last Dose Time 1800 White Blood Count 9.6 x10^3/uL (4.0-11.0) Red Blood Count 3.85 x10^6/uL (3.50-5.40) Hemoglobin 11.4 g/dL (12.0-15.5) Hematocrit 34.7 % (36.0-47.0) Mean Corpuscular Volume 90 fL (79-100) Mean Corpuscular Hemoglobin 30 pg (25-35) Mean Corpuscular Hemoglobin Concent 33 g/dL (31-37) Red Cell Distribution Width 13.7 % (11.5-14.5) Platelet Count 144 x10^3/uL (140-400) Neutrophils (%) (Auto) 64 % (31-73) Lymphocytes (%) (Auto) 23 % (24-48) Monocytes (%) (Auto) 11 % (0-9) Eosinophils (%) (Auto) 3 % (0-3) Basophils (%) (Auto) 0 % (0-3) Neutrophils # (Auto) 6.1 x10^3/uL (1.8-7.7) Lymphocytes # (Auto) 2.2 x10^3/uL (1.0-4.8) Monocytes # (Auto) 1.0 x10^3/uL (0.0-1.1) Eosinophils # (Auto) 0.2 x10^3/uL (0.0-0.7) Basophils # (Auto) 0.0 x10^3/uL (0.0-0.2) Sodium Level 145 mmol/L (136-145) Potassium Level 3.8 mmol/L (3.5-5.1) Chloride Level 109 mmol/L (98-107) Carbon Dioxide Level 27 mmol/L (21-32) Anion Gap 9 (6-14) Blood Urea Nitrogen 16 mg/dL (7-20) Creatinine 0.8 mg/dL (0.6-1.0) Estimated GFR (Cockcroft-Gault) 71.1 BUN/Creatinine Ratio 20 (6-20) Glucose Level 104 mg/dL (70-99) Calcium Level 8.7 mg/dL (8.5-10.1) Total Bilirubin 0.2 mg/dL (0.2-1.0) Aspartate Amino Transf (AST/SGOT) 12 U/L (15-37) Alanine Aminotransferase (ALT/SGPT) 21 U/L (14-59) Alkaline Phosphatase 45 U/L (46-116) Total Protein 6.7 g/dL (6.4-8.2) Albumin 2.4 g/dL (3.4-5.0) Albumin/Globulin Ratio 0.6 (1.0-1.7) Micro 04/16/19 Blood Culture - Preliminary, Resulted NO GROWTH AFTER 2 DAY URINE CULTURE RES 1 Final No growth Objective Assessment UTI, POA 04/15 no growth Mild left-sided hydronephrosis and hydroureter on CT Acute encephalopathy - improved Fever - better Leukocytosis - better Sinus congestion ? COPD Plan Plan of Care vanc and Zosyn Renal scan pending D/w nurse from [facility] to d/c per primary on augmentin pending renal scan Attending Co-Sign Attending Co-Sign The patient was seen and interviewed as well as examined at the bedside. The chart was reviewed. The case was discussed. Agree with the plan of care. [employer] Apr 18, 2019 14:12 DOUG GRACE MD Apr 18, 2019 14:42
[2019-04-18] MEDS: GABAPENTIN 100 MG CAPSULE. PO SCH (16:39)
--- NOTE | 2019-04-18 17:44 | NUR ---
Discharge Note: SARA DAMON [address] Discharge instructions and discharge home medications reviewed with Patient and a copy given. All questions have been answered and understanding verbalized. The following instructions and handouts were given: Fever, UTI, cardiac diet, and weight loss Discontinued iv lines and catheter intact. Patient discharged to home with self-care via private vehicle.
--- NOTE | 2019-04-18 17:55 | RAD ---
Renal scan with Lasix 04/18/2019 CLINICAL HISTORY: Left hydronephrosis. TECHNIQUE: After the intravenous administration of 10.5 mCi of technetium 99m MAG3, imaging of both kidneys and urinary bladder was performed using the gamma camera for 30 minutes. 40 mg of Lasix were administered intravenously 15 minutes into this study. Time activity curves for both kidneys were obtained. FINDINGS: Comparison is made to patient's CT scan of the abdomen and pelvis dated 04/16/2019. Normal perfusion, uptake and excretion of the radionuclide by both kidneys is seen. Progressive accumulation of activity within the urinary bladder is seen on the static images. The split renal function is as follows: Left kidney 52.5 percent, right kidney 47.5 percent. The time activity curves for both kidneys are within normal limits. IMPRESSION: Normal renal scan. Electronically signed by: Booker Krause MD (04/18/2019 5:53 PM) [id number]
--- NOTE | 2019-04-18 19:04 | PDOC3 ---
Discharge Summary Visit Information Date of Admission: Apr 15, 2019 Date of Discharge: Apr 18, 2019 Final Diagnosis . 1. sepsis/SIRS. 2. Urinary tract infection. flank pain, pyelonephritis 3. Questionable history of chronic obstructive pulmonary disease. certainly not causing any issues at present. 4. History of sleep apnea, on CPAP. Problems Medical Problems: (1) Pyelonephritis Status: Acute (2) Urinary tract infection Status: Acute Brief Hospital Course Allergies Allergies Coded Allergies Type Severity Reaction Last Updated Verified adhesive tape Allergy Intermediate 04/16/19 Yes bacitracin Allergy Intermediate 12/14/16 Yes chocolate flavor Allergy Intermediate 04/16/19 Yes corn Allergy Intermediate 04/16/19 Yes formaldehyde Allergy Intermediate 04/16/19 Yes nickel Allergy Intermediate 04/16/19 Yes oats Allergy Intermediate 04/16/19 Yes orange Allergy Intermediate 04/16/19 Yes peanut Allergy Intermediate 04/16/19 Yes tuna oil Allergy Intermediate 04/16/19 Yes Vital Signs Vital Signs Date Time Temp Pulse Resp B/P (MAP) Pulse Ox O2 Delivery O2 Flow Rate FiO2 04/18/19 11:32 94 Room Air 04/18/19 11:00 98.3 75 20 124/62 (82) 98.3 04/17/19 20:00 2.0 Lab Results Laboratory Tests Test 04/17/19 05:21 04/17/19 17:50 04/18/19 04:33 White Blood Count 10.0 x10^3/uL (4.0-11.0) 9.6 x10^3/uL (4.0-11.0) Red Blood Count 3.71 x10^6/uL (3.50-5.40) 3.85 x10^6/uL (3.50-5.40) Hemoglobin 11.1 g/dL (12.0-15.5) 11.4 g/dL (12.0-15.5) Hematocrit 33.6 % (36.0-47.0) 34.7 % (36.0-47.0) Mean Corpuscular Volume 91 fL (79-100) 90 fL (79-100) Mean Corpuscular Hemoglobin 30 pg (25-35) 30 pg (25-35) Mean Corpuscular Hemoglobin Concent 33 g/dL (31-37) 33 g/dL (31-37) Red Cell Distribution Width 13.6 % (11.5-14.5) 13.7 % (11.5-14.5) Platelet Count 122 x10^3/uL (140-400) 144 x10^3/uL (140-400) Neutrophils (%) (Auto) 66 % (31-73) 64 % (31-73) Lymphocytes (%) (Auto) 19 % (24-48) 23 % (24-48) Monocytes (%) (Auto) 15 % (0-9) 11 % (0-9) Eosinophils (%) (Auto) 0 % (0-3) 3 % (0-3) Basophils (%) (Auto) 0 % (0-3) 0 % (0-3) Neutrophils # (Auto) 6.6 x10^3/uL (1.8-7.7) 6.1 x10^3/uL (1.8-7.7) Lymphocytes # (Auto) 1.9 x10^3/uL (1.0-4.8) 2.2 x10^3/uL (1.0-4.8) Monocytes # (Auto) 1.5 x10^3/uL (0.0-1.1) 1.0 x10^3/uL (0.0-1.1) Eosinophils # (Auto) 0.0 x10^3/uL (0.0-0.7) 0.2 x10^3/uL (0.0-0.7) Basophils # (Auto) 0.0 x10^3/uL (0.0-0.2) 0.0 x10^3/uL (0.0-0.2) Sodium Level 142 mmol/L (136-145) 145 mmol/L (136-145) Potassium Level 3.5 mmol/L (3.5-5.1) 3.8 mmol/L (3.5-5.1) Chloride Level 108 mmol/L (98-107) 109 mmol/L (98-107) Carbon Dioxide Level 26 mmol/L (21-32) 27 mmol/L (21-32) Anion Gap 8 (6-14) 9 (6-14) Blood Urea Nitrogen 17 mg/dL (7-20) 16 mg/dL (7-20) Creatinine 0.9 mg/dL (0.6-1.0) 0.8 mg/dL (0.6-1.0) Estimated GFR (Cockcroft-Gault) 62.1 71.1 BUN/Creatinine Ratio 19 (6-20) 20 (6-20) Glucose Level 127 mg/dL (70-99) 104 mg/dL (70-99) Calcium Level 8.8 mg/dL (8.5-10.1) 8.7 mg/dL (8.5-10.1) Total Bilirubin 0.2 mg/dL (0.2-1.0) 0.2 mg/dL (0.2-1.0) Aspartate Amino Transf (AST/SGOT) 13 U/L (15-37) 12 U/L (15-37) Alanine Aminotransferase (ALT/SGPT) 21 U/L (14-59) 21 U/L (14-59) Alkaline Phosphatase 47 U/L (46-116) 45 U/L (46-116) Total Protein 6.6 g/dL (6.4-8.2) 6.7 g/dL (6.4-8.2) Albumin 2.5 g/dL (3.4-5.0) 2.4 g/dL (3.4-5.0) Albumin/Globulin Ratio 0.6 (1.0-1.7) 0.6 (1.0-1.7) Vancomycin Level Trough 6.7 mcg/mL (10.0-20.0) Vancomycin Last Dose Date 04/16/19 Vancomycin Last Dose Time 1800 Laboratory Tests Test 04/18/19 04:33 White Blood Count 9.6 x10^3/uL (4.0-11.0) Red Blood Count 3.85 x10^6/uL (3.50-5.40) Hemoglobin 11.4 g/dL (12.0-15.5) Hematocrit 34.7 % (36.0-47.0) Mean Corpuscular Volume 90 fL (79-100) Mean Corpuscular Hemoglobin 30 pg (25-35) Mean Corpuscular Hemoglobin Concent 33 g/dL (31-37) Red Cell Distribution Width 13.7 % (11.5-14.5) Platelet Count 144 x10^3/uL (140-400) Neutrophils (%) (Auto) 64 % (31-73) Lymphocytes (%) (Auto) 23 % (24-48) Monocytes (%) (Auto) 11 % (0-9) Eosinophils (%) (Auto) 3 % (0-3) Basophils (%) (Auto) 0 % (0-3) Neutrophils # (Auto) 6.1 x10^3/uL (1.8-7.7) Lymphocytes # (Auto) 2.2 x10^3/uL (1.0-4.8) Monocytes # (Auto) 1.0 x10^3/uL (0.0-1.1) Eosinophils # (Auto) 0.2 x10^3/uL (0.0-0.7) Basophils # (Auto) 0.0 x10^3/uL (0.0-0.2) Sodium Level 145 mmol/L (136-145) Potassium Level 3.8 mmol/L (3.5-5.1) Chloride Level 109 mmol/L (98-107) Carbon Dioxide Level 27 mmol/L (21-32) Anion Gap 9 (6-14) Blood Urea Nitrogen 16 mg/dL (7-20) Creatinine 0.8 mg/dL (0.6-1.0) Estimated GFR (Cockcroft-Gault) 71.1 BUN/Creatinine Ratio 20 (6-20) Glucose Level 104 mg/dL (70-99) Calcium Level 8.7 mg/dL (8.5-10.1) Total Bilirubin 0.2 mg/dL (0.2-1.0) Aspartate Amino Transf (AST/SGOT) 12 U/L (15-37) Alanine Aminotransferase (ALT/SGPT) 21 U/L (14-59) Alkaline Phosphatase 45 U/L (46-116) Total Protein 6.7 g/dL (6.4-8.2) Albumin 2.4 g/dL (3.4-5.0) Albumin/Globulin Ratio 0.6 (1.0-1.7) Brief Hospital Course Ms. Mark is a 68 old female, admit sepsis, had UTI, treated as pyelo, blood cx and urine cx neg. 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[facility], they have nurse that lives there with them Discharge Information Condition at Discharge: Improved Follow Up: Weeks Disposition/Orders: D/C to Home Scheduled Acetaminophen (Acetaminophen) 500 Mg Tablet, 2 TAB PO TIDWMEALS for chronic pain, #60 Ref 1 (Reported) Entered as Reported by: MEL MCKEON on 04/16/19213 Last Taken: Unknown Dose on 04/16/19 Last Action: Continued on 04/16/19933 by NIAL CASTOSMAN Albuterol Sulfate (Ventolin Hfa Inhaler) 18 Gm Hfa.aer.ad, 2 PUFF INH QID for FOR ASTHMA, Ref 0 (Reported) Entered as Reported by: MEL MCKEON on 04/16/19213 Last Taken: Unknown Dose on Unknown Date & Time Last Action: New Order on 04/16/19213 by MEL MCKEON Amlodipine Besylate (Norvasc) 5 Mg Tablet, 1 TAB PO DAILY, #30 Ref 5 (Reported) Entered as Reported by: Kamilah Dailey on 12/14/16 0925 Last Action: Continued on 04/16/19933 by NIAL CASTOSMAN Amoxicillin/Potassium Clav (Augmentin 875-125 Tablet) 1 Each Tablet, 1 TAB PO BID for pyelonephritis, #16 Prescribed by: CLARIBEL LOO on 04/18/19 1338 Aspirin (Aspirin Ec) 81 Mg Tablet.dr, 81 MG PO DAILY, (Reported) Entered as Reported by: PEGGY HIGGINS on 07/23/13 1215 Last Action: Continued on 04/16/19933 by NIAL ELENA Aspirin (Aspirin) 81 Mg Tab.chew, 1 TAB PO DAILY for clot prevention, #30 Ref 3 (Reported) Entered as Reported by: MEL MCKEON on 04/16/19213 Last Taken: Unknown Dose on 04/15/19 Last Action: Continued on 04/16/19933 by NIAL CASTOSMAN Cyclosporine (Restasis) 1 Each Droperette, 1 DROP EACHEYE BID for dryness, #60 Ref 3 (Reported) Entered as Reported by: MEL MCKEON on 04/16/19213 Last Taken: Unknown Dose on 04/16/18 Last Action: Continued on 04/16/19933 by NIAL CASTOSAMN Docusate Sodium (Docusate Sodium) 100 Mg Capsule, 100 MG PO BID, (Reported) Entered as Reported by: PEGGY HIGGINS on 07/23/13 1215 Last Action: Continued on 04/16/19933 by NIAJaved PARKER Ergocalciferol (Vitamin D2) (Vitamin D2) 50,000 Unit Capsule, 1 CAP PO WEEKLY for supplement , #4 Ref 5 (Reported) Entered as Reported by: MEL MCKEON on 04/16/19213 Last Taken: Unknown Dose on 04/12/19 Last Action: Continued on 04/16/19933 by NIAJaved PARKER Fluticasone/Salmeterol (Advair 250-50 Diskus) 1 Each Disk.w.dev, 2 PUFF IH BID for COPD, #3 Ref 3 (Reported) Entered as Reported by: MEL MCKEON on 04/16/19213 Last Taken: Unknown Dose on 04/15/19 Last Action: New Order on 04/16/19213 by MEL MCKEON Furosemide (Furosemide) 20 Mg Tablet, 1 TAB PO QTUTHSASU for edema, #90 Ref 1 (Reported) Entered as Reported by: MEL MCKEON on 04/16/19213 Last Taken: Unknown Dose on 04/16/19 Last Action: Continued on 04/16/19933 by GLADIS PARKER Furosemide (Furosemide) 40 Mg Tablet, 1 TAB PO QMWF for edema, #30 Ref 5 (Reported) Entered as Reported by: MEL MCKEON on 04/16/19213 Last Taken: Unknown Dose on 04/16/19 Last Action: Continued on 04/16/19 0 934 by NIAJaved PARKER Gabapentin (Gabapentin ) 100 Mg Capsule, 100 MG PO DAILY16 for NEUROGENIC PAIN, (Reported) Entered as Reported by: MEL MCKEON on 04/16/19213 Last Taken: Unknown Dose on 04/15/18 Last Action: Continued on 04/16/19933 by NIAJaved PARKER Guaifenesin (Mucinex) 600 Mg Tablet.er, 400 MG PO BID for allergy, (Reported) Entered as Reported by: MEL MCKEON on 04/16/19213 Last Taken: Unknown Dose on 04/16/19 Last Action: Continued on 04/16/19933 by NIAJaved PARKER Lactobacillus Rhamnosus Gg (Culturelle) 1 Each Cap.sprink, 1 CAP PO BID for gut health on antibiotic, #30 Prescribed by: CLARIBEL LOO on 04/18/19 1338 Loratadine (Loratadine) 10 Mg Tablet, 1 TAB PO DAILY for allergy, #30 Ref 5 (Reported) Entered as Reported by: MEL MCKEON on 04/16/19213 Last Taken: Unknown Dose on 04/16/19 Last Action: New Order on 04/16/19213 by MEL MCKEON Metformin Hcl (Metformin Hcl) 500 Mg Tablet, 500 MG PO DAILY for ANTI-DIABETIC, Ref 0 (Reported) Entered as Reported by: Kamilah Dailey on 12/14/16930 Last Action: Continued on 04/16/19933 by GLADIS PARKER Montelukast Sodium (Singulair Tablet ) 10 Mg Tablet, 10 MG PO DAILY, (Reported) Entered as Reported by: PEGGY HIGGINS on 07/23/131214 Last Action: Continued on 04/16/19933 by GLADIS PARKER [place]-3S/Dha/Epa/Fish Oil (Fish Oil 1,000 mg Softgel) 1 Each Capsule, 1 EACH PO BID for Supplment, (Reported) Entered as Reported by: MEL MCKEON on 04/16/19213 Last Taken: Unknown Dose on 04/15/19 Last Action: New Order on 04/16/19213 by MEL MCKEON Omeprazole (Omeprazole) 20 Mg Capsule.dr, 1 CAP PO DAILY for GERD, #30 Ref 5 (Reported) Entered as Reported by: MEL MCKEON on 04/16/19213 Last Taken: Unknown Dose on 04/15/19 Last Action: New Order on 04/16/19213 by MEL MCKEON Polyethylene Glycol 3350 (Miralax) 17 Gm Powd.pack, 1 PACKET PO DAILY for constipation, #30 Ref 3 (Reported) Entered as Reported by: MEL MCKEON on 04/16/19213 Last Taken: Unknown Dose on 04/16/18 Last Action: Continued on 04/16/19933 by GLADIS PARKER Potassium Chloride (Potassium Chloride) 10 Meq Capsule.er, 10 MEQ PO DAILY, (Reported) Entered as Reported by: PEGGY HIGGINS on 07/23/13 1215 Last Action: Continued on 04/16/19933 by GLADIS PARKER Potassium Chloride (Potassium Chloride) 10 Meq Tab.sr.24h, 10 MEQ PO DAILY for supplement, (Reported) Entered as Reported by: MEL MCKEON on 04/16/19213 Last Taken: Unknown Dose on 04/16/19 Last Action: Continued on 04/16/19933 by GLADIS PARKER Tramadol Hcl (Tramadol Hcl) 50 Mg Tablet, 50 MG PO DAILY, (Reported) Entered as Reported by: PEGGY HIGGINS on 07/23/132 Last Action: Continued on 04/16/19933 by GLADIS PARKER Scheduled PRN Betamethasone Dipropionate (Betamethasone Dipropionate) 15 Gm Cream..g., 1 KEYANA TP PRN DAILY PRN for skin rash, #15 Ref 3 (Reported) Entered as Reported by: MEL MCKEON on 04/16/19213 Last Taken: Unknown Dose on Unknown Date & Time Last Action: New Order on 04/16/19213 by MEL MCKEON Fluticasone Propionate (Flonase Allergy Relief) 9.9 Ml [place].susp, 2 SPRAYS NS PRN BID PRN for ALLERGIES, (Reported) Entered as Reported by: MEL MCKEON on 04/16/19213 Last Taken: Unknown Dose on Unknown Date & Time Last Action: New Order on 04/16/19213 by MEL MCKEON Ibuprofen (Ibuprofen) 400 Mg Tablet, 400 MG PO BID PRN for INFLAMMATION, (Reported) Entered as Reported by: MEL MCKEON on 04/16/19213 Last Taken: Unknown Dose on 04/16/18 Last Action: Continued on 04/16/19933 by GLADIS PARKER Lidocaine HCl (Aspercreme) 76.5 Gm Cream..g., 76.5 GM TP PRN BID PRN for joint pain, (Reported) Entered as Reported by: MEL MCKEON on 04/16/19213 Last Taken: Unknown Dose on Unknown Date & Time Last Action: New Order on 04/16/19213 by MEL MCKEON Discontinued Medications Fluticasone/Salmeterol (Advair 250-50 Diskus) 1 Each Disk.w.dev, 1 EACH IH PRN BID, (Reported) Entered as Reported by: PEGGY HIGGINS on 07/23/13 1215 Furosemide (Furosemide) 40 Mg Tablet, 40 MG PO DAILY, (Reported) Entered as Reported by: PEGGY HIGGINS on 07/23/13 1202 Last Action: Discontinued on 04/16/19213 by MEL MCKEON Guaifenesin (Mucinex) 600 Mg Tablet.er, 600 MG PO DAILY, (Reported) Entered as Reported by: PEGGY HIGGINS on 07/23/13 1215 Last Action: Discontinued on 04/16/19213 by MEL MCKEON Patient Instructions Patient Instructions > 30 min face to face with other sister present CLARIBEL LOO MD Apr 18, 2019 19:04
[2019-04-19] MEDS ORDERED: metFORMIN 500 MG TABLET PO SCH (08:00)
[2019-04-19] MEDS ORDERED: ERGOCALCIFEROL (VITAMIN D2) 50,000 UNIT CAPSULE. PO SCH (09:00)
== END 2019-04-18 17:30 | disposition home or self-care (01) | DRG 871 ==
LOC: ER 17:33 → 2 SOUTH 20:53
PROVIDERS: ADMIT Family Medicine; ATTEND Family Medicine
PROC: 5A09357 Assistance with Respiratory Ventilation, Less than 24 Consecutive Hours, Continuous Positive Airway Pressure (ICD-10-PCS; principal; 2019-04-15)
DX: A41.9 Sepsis, unspecified organism (principal); G93.41 Metabolic encephalopathy; N13.6 Pyonephrosis; G47.33 Obstructive sleep apnea (adult) (pediatric); I10 Essential (primary) hypertension; I73.9 Peripheral vascular disease, unspecified; J44.9 Chronic obstructive pulmonary disease, unspecified; K21.9 Gastro-esophageal reflux disease without esophagitis; K80.20 Calculus of gallbladder without cholecystitis without obstruction; Z82.49 Family history of ischemic heart disease and other diseases of the circulatory system; Z96.651 Presence of right artificial knee joint; M19.90 Unspecified osteoarthritis, unspecified site; Z88.8 Allergy status to other drugs, medicaments and biological substances; Z79.899 Other long term (current) drug therapy; Z91.010 Allergy to peanuts; Z91.018 Allergy to other foods; Z91.048 Other nonmedicinal substance allergy status
CPT/HCPCS: 36415; 70450; 71045; 72125; 74177; 78708; 80048; 80053; 80202; 81001; 82553; 82962; 83605; 83690; 83735; 83880; 84145; 84443; 84484; 85025; 87040; 87070; 87086; 87804; 87880; 93005; 93306; 96365; 96366; 96368; 96374; 96375; A9562; J1940; J2405; J2543; J2920; J3370; J7030; J7040; J7050; P9612; Q9966; Q9967; 97530; 97535; 99285-25; G0378

== ENCOUNTER 2021-05-12 13:56 | Inpatient (IN) | payer MEDICARE, MEDICAID ==
[~2021-05-12] VITALS: Ht 162.6 cm; Wt 66.8 kg
[~2021-05-12 13:56] MED LIST changes: +ACET500T68 PO; +AMOX1TAB61 PO; -ASPI-612 PO; +ASPI-630 PO; +ASPI-886 PO; +BETA15CR5 TP; +CYCL10TA19 PO; -CYCL10TA2 PO; +CYCL1DRO EACHEYE; +ERGO500027 PO; +FLUT9.9S NS; +FURO20TA3 PO; +GABA-585 PO; +IBUP-1027 PO; +LACT1CAP19 PO; +LIDO76.5 TP; +LORA10TA3 PO; +OMEG-165 PO; +OMEP20CA16 PO; +POLY17PO29 PO; +VENTOLIN HFA18 GM INH
--- NOTE | 2021-05-12 14:12 | PHYS DOC ---
Past Medical History Past Medical History: Arthritis, Asthma, COPD, Hypertension Additional Past Medical Histor: SLEEP APNEA, FIBROMYALGIA Past Surgical History: Other Additional Past Surgical Histo: RIGHT KNEE REPLACEMENT Smoking Status: Never Smoker Alcohol Use: None Drug Use: None General Adult EDM: Chief Complaint: ALTERED MENTAL STATUS HPI: HPI: Patient is a 70 year old female who presents with AMS and SOA. Henny has been having a fever of about 102*F for the past week and a productive cough.She says that she has been feeling unwell and has been having chills and aches but no specific points of pain. Her jail reports AMS x1 day and she is complaining of feeling unable to breathe. Has been on Cipro 500 mg twice daily for past week History of fibro-, asthma, COPD, arthritis, GERD, hypertension, eczema, type 2 diabetes Review of Systems: Review of Systems: Fourteen body systems of review of systems have been reviewed. See HPI for pertinent positives and negative responses, other cabrales all other systems are negative, non-pertinent or non-contributory Heart Score: C/O Chest Pain: No Risk Factors: Risk Factors: DM, Current or recent (<one month) smoker, HTN, HLP, family history of CAD, obesity. Risk Scores: Score 0 - 3: 2.5% MACE over next 6 weeks - Discharge Home Score 4 - 6: 20.3% MACE over next 6 weeks - Admit for Clinical Observation Score 7 - 10: 72.7% MACE over next 6 weeks - Early Invasive Strategies Allergies: Allergies: Allergies Coded Allergies Type Severity Reaction Last Updated Verified adhesive tape Allergy Intermediate 04/16/19 Yes bacitracin Allergy Intermediate 12/14/16 Yes chocolate flavor Allergy Intermediate 04/16/19 Yes corn Allergy Intermediate 04/16/19 Yes formaldehyde Allergy Intermediate 04/16/19 Yes nickel Allergy Intermediate 04/16/19 Yes oats Allergy Intermediate 04/16/19 Yes orange Allergy Intermediate 04/16/19 Yes peanut Allergy Intermediate 04/16/19 Yes tuna oil Allergy Intermediate 04/16/19 Yes Physical Exam: PE: Constitutional: Well developed, well nourished, no acute distress, non-toxic appearance. HENT: Normocephalic, atraumatic, bilateral external ears normal, oropharynx moist, no oral exudates, nose normal. Eyes: PERRLA, EOMI, conjunctiva normal, no discharge. Neck: Normal range of motion, no tenderness, supple, no stridor. Cardiovascular: Heart rate tachycardic, sinus rhythm, no murmurs rubs or gallops Lungs & Thorax: No obvious respiratory failure/distress but there is increased work of breathing, crackles present bilateral lung bases Abdomen: Bowel sounds normal, soft, no tenderness, no masses, no pulsatile masses. Nonsurgical abdomen, no peritoneal signs Skin: Warm to touch, dry, no erythema, no rash. Back: No tenderness, no CVA tenderness. Extremities: No tenderness, no cyanosis, no clubbing, ROM intact, no edema. Neurologic: Alert and oriented to person and place but not time which is not her baseline, cranial nerves II through XII intact, normal motor & sensory function, no focal deficits noted. Psychologic: Affect normal, mood normal. Current Patient Data: Labs: Laboratory Tests Test 05/12/21 15:45 05/12/21 20:35 05/13/21 06:25 05/13/21 07:41 Sodium Level 140 mmol/L 142 mmol/L Potassium Level 3.9 mmol/L 3.7 mmol/L Chloride Level 105 mmol/L 108 mmol/L Carbon Dioxide Level 27 mmol/L 25 mmol/L Anion Gap 8 9 Blood Urea Nitrogen 13 mg/dL 11 mg/dL Creatinine 0.9 mg/dL 0.9 mg/dL Estimated GFR (Cockcroft-Gault) 61.7 61.7 BUN/Creatinine Ratio 14 12 Glucose Level 113 mg/dL 107 mg/dL Lactic Acid Level 1.5 mmol/L Calcium Level 8.7 mg/dL 8.7 mg/dL Total Bilirubin 0.3 mg/dL 0.3 mg/dL Aspartate Amino Transf (AST/SGOT) 31 U/L 18 U/L Alanine Aminotransferase (ALT/SGPT) 38 U/L 31 U/L Alkaline Phosphatase 71 U/L 60 U/L Total Protein 7.2 g/dL 6.7 g/dL Albumin 2.8 g/dL 2.6 g/dL Albumin/Globulin Ratio 0.6 0.6 Glucose (Fingerstick) 127 mg/dL 124 mg/dL WC-[id number] Natriuretic Peptide 640 pg/mL Test 05/13/21 12:40 05/13/21 12:44 D-Dimer (Nunu) < 0.27 ug/mlFEU Glucose (Fingerstick) 126 mg/dL Current Medications Medications (Trade) Dose Ordered Sig/Fransico Route PRN Reason Start Time Stop Time Status Last Admin Dose Admin Sodium Chloride 1,000 ml @ 1,000 mls/hr 1X ONCE IV 05/12/21 14:30 05/12/21 15:29 DC 05/12/21 15:01 Acetaminophen (Tylenol) 1,000 mg 1X ONCE PO 05/12/21 14:30 05/12/21 14:32 DC 05/12/21 15:00 Ceftriaxone Sodium (Rocephin) 1 gm 1X ONCE IVP 05/12/21 16:45 05/12/21 16:54 DC 05/12/21 17:12 Sodium Chloride 1,000 ml @ 1,000 mls/hr 1X ONCE IV 05/12/21 16:45 05/12/21 17:44 DC 05/12/21 17:06 Vital Signs: Vital Signs Date Time Temp Pulse Resp B/P (MAP) Pulse Ox O2 Delivery O2 Flow Rate FiO2 05/12/21 13:56 101.3 115 22 136/73 (94) 95 Room Air 101.3 Vital Signs Date Time Temp Pulse Resp B/P (MAP) Pulse Ox O2 Delivery O2 Flow Rate FiO2 05/12/21 16:05 98.7 110 23 138/63 (88) 94 Room Air 98.7 EKG: EKG: EKG ordered and interpreted by myself 1411 hrs. as sinus tachycardia at 115 bpm, unremarkable intervals, left axis deviation, occasional PVCs without obvious ischemic findings, no STEMI Radiology/Procedures: Radiology/Procedures: [] EXAM: Chest, single view. HISTORY: Shortness of breath. COMPARISON: 04/15/2019 FINDINGS: A frontal view of the chest is obtained. There is mild diffuse increased interstitial opacity. There is no consolidation, pleural effusion or pneumothorax. There is a stable prominent cardiac silhouette. IMPRESSION: Suspected chronic diffuse interstitial prominence and stable prominent chronic silhouette. There is no consolidated infiltrate. Electronically signed by: Arti Briseno MD (05/12/2021 2:58 PM) [id number] Course & Med Decision Making: Course & Med Decision Making Airway patent, breathing unlabored, IV access and vitals obtained concerning for fever and tachycardia HPI limited, physical exam and comprehensive ER work-up concerning for sepsis with source being UTI Appropriate IV fluid administered with subsequent IV Rocephin antibiotic for UTI. Will await cultures as out patient culture is unavailable to detail sensitivity and patient who has been taking Cipro 500 twice daily for unknown amount of days I discussed need for hospitalization for continued inpatient medical care, patient amenable. Contacted hospitalist who also agreed to accept patient under his care. All questions and concerns addressed prior to hospitalization Dragon Disclaimer: Dragon Disclaimer: This electronic medical record was generated, in whole or in part, using a voice recognition dictation system. Departure Departure Impression: Primary Impression: Sepsis secondary to UTI Disposition: ADMITTED INPATIENT Admitting Physician: SHARON (DR KENNEDY) Condition: STABLE Referrals: YG DE LEON MD (PCP) ANDRAE JACOB DO May 12, 2021 14:12
[2021-05-12] MEDS ORDERED: IV NORMAL SALINE 1000ML BAG 1,000 ML IV ONE ×2 (14:30→16:45)
[2021-05-12] MEDS ORDERED: ACETAMINOPHEN 500 MG TABLET PO ONE (14:30)
[2021-05-12 14:44] LABS: BASO % 0 % (0-3); EOS % 0 % (0-3); HEMATOCRIT 43.2 % (36.0-47.0); HEMOGLOBIN 14.2 g/dL (12.0-15.5); LYMPH # 1.8 x10^3/uL (1.0-4.8); LYMPH % 15 % (24-48); MEAN CORPUSCULAR HEMOGLOBIN 30 pg (25-35); MEAN CORPUSCULAR HGB CONC 33 g/dL (31-37); MEAN CORPUSCULAR VOLUME 91 fL (79-100); MONO # 1.3 x10^3/uL (0.0-1.1); MONO % 10 % (0-9); NEUT # 9.5 x10^3/uL (1.8-7.7); NEUT % 75 % (31-73); PLATELET COUNT 152 x10^3/uL (140-400); RED BLOOD COUNT 4.76 x10^6/uL (3.50-5.40); RED CELL DISTRIBUTION WIDTH 13.3 % (11.5-14.5); WHITE BLOOD COUNT 12.6 x10^3/uL (4.0-11.0)
[2021-05-12 14:46] LABS: BILIRUBIN,URINE NEGATIVE (NEG); CLARITY,URINE CLOUDY; COLOR,URINE YELLOW; NITRITE,URINE NEGATIVE (NEG); PH,URINE 7.5 (<5.0-8.0); PROTEIN,URINE 30 mg/dL (NEG-TRACE); UROBILINOGEN,URINE 0.2 mg/dL (0.2 mg/dL)
[2021-05-12 14:53] LABS: WBC,URINE TNTC /HPF (0-4)
[2021-05-12 14:54] LABS: BACTERIA,URINE FEW /HPF (0-FEW)
--- NOTE | 2021-05-12 15:00 | RAD ---
EXAM: Chest, single view. HISTORY: Shortness of breath. COMPARISON: 04/15/2019 FINDINGS: A frontal view of the chest is obtained. There is mild diffuse increased interstitial opaci ty. There is no consolidation, pleural effusion or pneumothorax. There is a stable prominent cardiac silhouette. IMPRESSION: Suspected chronic diffuse interstitial prominence and stable prominent chronic silhouette . There is no consolidated infiltrate. Electronically signed by: Arti Briseno MD (05/12/2021 2:58 PM) [id number]
--- NOTE | 2021-05-12 15:11 | EKG ---
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
[2021-05-12 16:24] LABS: CALCIUM 8.7 mg/dL (8.5-10.1); CREATININE 0.9 mg/dL (0.6-1.0); GFR 61.7; POTASSIUM 3.9 mmol/L (3.5-5.1)
[2021-05-12 16:40] LABS: ALBUMIN 2.8 g/dL (3.4-5.0); ALBUMIN/GLOBULIN RATIO 0.6 (1.0-1.7); TOTAL BILIRUBIN 0.3 mg/dL (0.2-1.0); TOTAL PROTEIN 7.2 g/dL (6.4-8.2)
[2021-05-12] MEDS ORDERED: cefTRIAXone IV Push 1 GM VIAL. IVP ONE (16:45)
[2021-05-12] MEDS ORDERED: ONDANSETRON PF 4 MG/2 ML VIAL. IVP PRN (17:00)
--- NOTE | 2021-05-12 17:02 | PDOC1 ---
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 Was being treated presumptively for UTI with cipro for the past 5 days. Has been having a fever of about 102*F for the past week and a productive cough.She c/o myalgias and difficulty breathing. Is aware of confusion. EKG sinus tachycardia at 115 bpm, unremarkable intervals, left axis deviation, occasional PVCs without obvious ischemic findings, no ST elevations or TWI WBC 12.6, Hb 14.2, platelets 152, NA 140, K3.9, BUN 13, CR 0.9, glucose 113 lactic acid 1.5, LFTs within normal laboratory limits albumin 2.8, urine with leuk large leukoesterase and blood rapid COVID-19 negative chest radiograph with no acute findings but diffuse interstitial prominence,chronic. Admitted for further care. Past Medical History Cardiovascular: HTN Pulmonary: Asthma, Other CENTRAL NERVOUS SYSTEM: Other GI: Constipation Heme/Onc: No pertinent hx Hepatobiliary: No pertinent hx Psych: No pertinent hx Musculoskeletal: Osteoarthritis Rheumatologic: No pertinent hx Infectious disease: No pertinent hx Renal/: No pertinent hx Endocrine: No pertinent hx Past Surgical History Past Surgical History: Cataract Removal, Other Family History Family History: Coronary Artery Disease Social History Smoke: No ALCOHOL: none Drugs: None Current Medications Current Medications Current Medications Sodium Chloride 1,000 ml @ 1,000 mls/hr 1X ONCE IV Last administered on 05/12/21at 15:01; Start 05/12/21 at 14:30; Stop 05/12/21 at 15:29; Status DC Acetaminophen (Tylenol) 1,000 mg 1X ONCE PO Last administered on 05/12/21at 15:00; Start 05/12/21 at 14:30; Stop 05/12/21 at 14:32; Status DC Ceftriaxone Sodium (Rocephin) 1 gm 1X ONCE IVP ; Start 05/12/21 at 16:45; Stop 05/12/21 at 16:54; Status DC Sodium Chloride 1,000 ml @ 1,000 mls/hr 1X ONCE IV ; Start 05/12/21 at 16:45; Stop 05/12/21 at 17:44 Active Scripts Active Augmentin 875-125 Tablet (Amoxicillin/Potassium Clav) 1 Each Tablet 1 Tab PO BID Culturelle (Lactobacillus Rhamnosus Gg) 1 Each Cap.sprink 1 Cap PO BID Reported Ventolin Hfa Inhaler (Albuterol Sulfate) 18 Gm Hfa.aer.ad 2 Puff INH QID Betamethasone Dipropionate 15 Gm Cream..g. 1 Sharita TP PRN DAILY PRN Aspercreme (Lidocaine HCl) 76.5 Gm Cream..g. 76.5 Gm TP PRN BID PRN Flonase Allergy Relief (Fluticasone Propionate) 9.9 Ml Bethany.susp 2 Sprays NS PRN BID PRN Ibuprofen 400 Mg Tablet 400 Mg PO BID PRN Restasis (Cyclosporine) 1 Each Droperette 1 Drop EACHEYE BID Miralax (Polyethylene Glycol 3350) 17 Gm Powd.pack 1 Packet PO DAILY Advair 250-50 Diskus (Fluticasone/Salmeterol) 1 Each Disk.w.dev 2 Puff IH BID Omeprazole 20 Mg Capsule.dr 1 Cap PO DAILY Aspirin 81 Mg Tab.chew 1 Tab PO DAILY Fish Oil 1,000 mg Softgel ([place]-3S/Dha/Epa/Fish Oil) 1 Each Capsule 1 Each PO BID Gabapentin (Gabapentin) 100 Mg Capsule 100 Mg PO DAILY16 Acetaminophen 500 Mg Tablet 2 Tab PO TIDWMEALS Potassium Chloride 10 Meq Tab.sr.24h 10 Meq PO DAILY Furosemide 40 Mg Tablet 1 Tab PO QMWF Furosemide 20 Mg Tablet 1 Tab PO QTUTHSASU Vitamin D2 (Ergocalciferol (Vitamin D2)) 50,000 Unit Capsule 1 Cap PO WEEKLY Loratadine 10 Mg Tablet 1 Tab PO DAILY Mucinex (Guaifenesin) 600 Mg Tablet.er 400 Mg PO BID Metformin Hcl 500 Mg Tablet 500 Mg PO DAILY Norvasc (Amlodipine Besylate) 5 Mg Tablet 1 Tab PO DAILY Docusate Sodium 100 Mg Capsule 100 Mg PO BID Aspirin Ec (Aspirin) 81 Mg Tablet.dr 81 Mg PO DAILY Potassium Chloride 10 Meq Capsule.er 10 Meq PO DAILY Singulair Tablet (Montelukast Sodium) 10 Mg Tablet 10 Mg PO DAILY Tramadol Hcl 50 Mg Tablet 50 Mg PO DAILY Allergies Allergies: Coded Allergies: adhesive tape (Verified Allergy, Intermediate, 04/16/19) bacitracin (Verified Allergy, Intermediate, 12/14/16) chocolate flavor (Verified Allergy, Intermediate, 04/16/19) corn (Verified Allergy, Intermediate, 04/16/19) formaldehyde (Verified Allergy, Intermediate, 04/16/19) nickel (Verified Allergy, Intermediate, 04/16/19) oats (Verified Allergy, Intermediate, 04/16/19) orange (Verified Allergy, Intermediate, 04/16/19) peanut (Verified Allergy, Intermediate, 04/16/19) tuna oil (Verified Allergy, Intermediate, 04/16/19) ROS General: YES: Fatigue, Malaise; No: Chills, Night Sweats, Appetite, Other PSYCHOLOGICAL ROS: YES: Anxiety, Disorientation; No: Behavioral Disorder, Concentration difficultie, Decreased libido, Depression, Hallucinations, Hostility, Irritablity, Memory difficulties, Mood Swings, Obsessive thoughts, Physical abuse, Sexual abuse, Sleep disturbances, Suicidal ideation, Other Eyes: No Blurry vision, No Decreased vision, No Double vision, No Dry eyes, No Excessive tearing, No Eye Pain, No Itchy Eyes, No Loss of vision, No Photophobia, No Scotomata, No Uses contacts, No Uses glasses, No Other HEENT: No: Heacaches, Visual Changes, Hearing change, Nasal congestion, Nasal d ischarge, Oral lesions, Sinus pain, Sore Throat, Epistaxis, Sneezing, Snoring, Tinnitus, Vertigo, Vocal changes, Other ALLERGY AND IMMUNOLOGY: No: Hives, Insect Bite Sensitivity, Itchy/Watery Eyes, Nasal Congestion, Post Nasal Drip, Seasonal Allergies, Other Hematological and Lymphatic: No: Bleeding Problems, Blood Clots, Blood Transfusions, Brusing, Night Sweats, Pallor, Swollen Lymph Nodes, Other ENDOCRINE: No: Breast Changes, Galactorrhea, Hair Pattern Changes, Hot Flashes, Malaise/lethargy, Mood Swings, Palpitations, Polydipsia/polyuria, Skin Changes, Temperature Intolerance, Unexpected Weight Changes, Other Breast: No New/Changing Breast Lumps, No Nipple changes, No Nipple discharge, No Other Respiratory: YES: Cough; No: Hemoptysis, Orthopnea, Pleuritic Pain, Shortness of breath, SOB with excertion, Sputum Changes, Stridor, Tachypnea, Wheezing, Other Cardiovascular: No Chest Pain, No Palpitations, No Orthopnea, No Paroxysmal Noc. Dyspnea, No Edema, No Lt Headedness, No Other Gastrointestinal: Yes Abdominal Pain; No Nausea, No Vomiting, No Diarrhea, No Constipation, No Melena, No Hematochezia, No Other Genitourinary: YES Dysuria, YES Frequency, YES Incontinence; No Hematuria, No Retention, No Discharge, No Urgency, No Pain, No Flank Pain, No Other, No , No , No , No , No , No , No Musculoskeletal: No Gait Disturbance, No Joint Pain, No Joint Stiffness, No Joint Swelling, No Muscle Pain, No Muscular Weakness, No Pain In:, No Swelling In:, No Other Neurological: No Behavorial Changes, No Bowel/Bladder ControlChng, No Confusion, No Dizziness, No Gait Disturbance, No Headaches, No Impaired Coord/balance, No Memory Loss, No Numbness/Tingling, No Seizures, No Speech Problems, No Tremors, No Visual Changes, No Weakness, No Other Skin: No Dry Skin, No Eczema, No Hair Changes, No Lumps, No Mole Changes, No Mottling, No Nail Changes, No Pruritus, No Rash, No Skin Lesion Changes, No Other, No Acne Physical Exam General: Alert, Cooperative, moderate distress HEENT: Atraumatic, PERRLA, EOMI, Mucous membr. moist/pink Lungs: Other (bibasilar crakles) Heart: S1S2, RRR, no thrills, no rubs, no gallops, no murmurs Abdomen: Normal bowel sounds, Soft, No tenderness, No hepatosplenomegaly, No masses Rectal Exam: not examined Extremities: No clubbing, No cyanosis, No edema, Normal pulses, No tenderness/swelling Skin: No rashes, No breakdown, No significant lesion Neuro: Normal tone, Cranial nerves 3-12 NL, Reflexes 2+ Psych/Mental Status: Other (Confused) Vitals Vitals Vital Signs Date Time Temp Pulse Resp B/P (MAP) Pulse Ox O2 Delivery O2 Flow Rate FiO2 05/12/21 16:05 98.7 110 23 138/63 (88) 94 Room Air 98.7 Labs Labs Laboratory Tests Test 05/12/21 12:45 05/12/21 13:59 05/12/21 14:08 05/12/21 14:15 Troponin I High Sensitivity 30 ng/L (4-50) SARS-CoV-2 Antigen (Rapid) Negative (NEGATIVE) Urine Collection Type U cath Urine Color Yellow Urine Clarity Cloudy Urine pH 7.5 (<5.0-8.0) Urine Specific [place] 1.020 (1.000-1.030) Urine Protein 30 mg/dL (NEG-TRACE) Urine Glucose (UA) Negative mg/dL (NEG) Urine Ketones (Stick) Negative mg/dL (NEG) Urine Blood Moderate (NEG) Urine Nitrite Negative (NEG) Urine Bilirubin Negative (NEG) Urine Urobilinogen Dipstick 0.2 mg/dL (0.2 mg/dL) Urine Leukocyte Esterase Large (NEG) Urine RBC 3-5 /HPF (0-2) Urine WBC Tntc /HPF (0-4) Urine Bacteria Few /HPF (0-FEW) White Blood Count 12.6 x10^3/uL (4.0-11.0) Red Blood Count 4.76 x10^6/uL (3.50-5.40) Hemoglobin 14.2 g/dL (12.0-15.5) Hematocrit 43.2 % (36.0-47.0) Mean Corpuscular Volume 91 fL (79-100) Mean Corpuscular Hemoglobin 30 pg (25-35) Mean Corpuscular Hemoglobin Concent 33 g/dL (31-37) Red Cell Distribution Width 13.3 % (11.5-14.5) Platelet Count 152 x10^3/uL (140-400) Neutrophils (%) (Auto) 75 % (31-73) Lymphocytes (%) (Auto) 15 % (24-48) Monocytes (%) (Auto) 10 % (0-9) Eosinophils (%) (Auto) 0 % (0-3) Basophils (%) (Auto) 0 % (0-3) Neutrophils # (Auto) 9.5 x10^3/uL (1.8-7.7) Lymphocytes # (Auto) 1.8 x10^3/uL (1.0-4.8) Monocytes # (Auto) 1.3 x10^3/uL (0.0-1.1) Eosinophils # (Auto) 0.0 x10^3/uL (0.0-0.7) Basophils # (Auto) 0.0 x10^3/uL (0.0-0.2) Test 05/12/21 15:45 Sodium Level 140 mmol/L (136-145) Potassium Level 3.9 mmol/L (3.5-5.1) Chloride Level 105 mmol/L (98-107) Carbon Dioxide Level 27 mmol/L (21-32) Anion Gap 8 (6-14) Blood Urea Nitrogen 13 mg/dL (7-20) Creatinine 0.9 mg/dL (0.6-1.0) Estimated GFR (Cockcroft-Gault) 61.7 BUN/Creatinine Ratio 14 (6-20) Glucose Level 113 mg/dL (70-99) Lactic Acid Level 1.5 mmol/L (0.4-2.0) Calcium Level 8.7 mg/dL (8.5-10.1) Total Bilirubin 0.3 mg/dL (0.2-1.0) Aspartate Amino Transf (AST/SGOT) 31 U/L (15-37) Alanine Aminotransferase (ALT/SGPT) 38 U/L (14-59) Alkaline Phosphatase 71 U/L (46-116) Total Protein 7.2 g/dL (6.4-8.2) Albumin 2.8 g/dL (3.4-5.0) Albumin/Globulin Ratio 0.6 (1.0-1.7) Laboratory Tests Test 05/12/21 12:45 05/12/21 13:59 05/12/21 14:08 05/12/21 14:15 Troponin I High Sensitivity 30 ng/L (4-50) SARS-CoV-2 Antigen (Rapid) Negative (NEGATIVE) Urine Collection Type U cath Urine Color Yellow Urine Clarity Cloudy Urine pH 7.5 (<5.0-8.0) Urine Specific [place] 1.020 (1.000-1.030) Urine Protein 30 mg/dL (NEG-TRACE) Urine Glucose (UA) Negative mg/dL (NEG) Urine Ketones (Stick) Negative mg/dL (NEG) Urine Blood Moderate (NEG) Urine Nitrite Negative (NEG) Urine Bilirubin Negative (NEG) Urine Urobilinogen Dipstick 0.2 mg/dL (0.2 mg/dL) Urine Leukocyte Esterase Large (NEG) Urine RBC 3-5 /HPF (0-2) Urine WBC Tntc /HPF (0-4) Urine Bacteria Few /HPF (0-FEW) White Blood Count 12.6 x10^3/uL (4.0-11.0) Red Blood Count 4.76 x10^6/uL (3.50-5.40) Hemoglobin 14.2 g/dL (12.0-15.5) Hematocrit 43.2 % (36.0-47.0) Mean Corpuscular Volume 91 fL (79-100) Mean Corpuscular Hemoglobin 30 pg (25-35) Mean Corpuscular Hemoglobin Concent 33 g/dL (31-37) Red Cell Distribution Width 13.3 % (11.5-14.5) Platelet Count 152 x10^3/uL (140-400) Neutrophils (%) (Auto) 75 % (31-73) Lymphocytes (%) (Auto) 15 % (24-48) Monocytes (%) (Auto) 10 % (0-9) Eosinophils (%) (Auto) 0 % (0-3) Basophils (%) (Auto) 0 % (0-3) Neutrophils # (Auto) 9.5 x10^3/uL (1.8-7.7) Lymphocytes # (Auto) 1.8 x10^3/uL (1.0-4.8) Monocytes # (Auto) 1.3 x10^3/uL (0.0-1.1) Eosinophils # (Auto) 0.0 x10^3/uL (0.0-0.7) Basophils # (Auto) 0.0 x10^3/uL (0.0-0.2) Test 05/12/21 15:45 Sodium Level 140 mmol/L (136-145) Potassium Level 3.9 mmol/L (3.5-5.1) Chloride Level 105 mmol/L (98-107) Carbon Dioxide Level 27 mmol/L (21-32) Anion Gap 8 (6-14) Blood Urea Nitrogen 13 mg/dL (7-20) Creatinine 0.9 mg/dL (0.6-1.0) Estimated GFR (Cockcroft-Gault) 61.7 BUN/Creatinine Ratio 14 (6-20) Glucose Level 113 mg/dL (70-99) Lactic Acid Level 1.5 mmol/L (0.4-2.0) Calcium Level 8.7 mg/dL (8.5-10.1) Total Bilirubin 0.3 mg/dL (0.2-1.0) Aspartate Amino Transf (AST/SGOT) 31 U/L (15-37) Alanine Aminotransferase (ALT/SGPT) 38 U/L (14-59) Alkaline Phosphatase 71 U/L (46-116) Total Protein 7.2 g/dL (6.4-8.2) Albumin 2.8 g/dL (3.4-5.0) Albumin/Globulin Ratio 0.6 (1.0-1.7) Images Images Chest radiograph: A frontal view of the chest is obtained. There is mild diffuse increased interstitial opacity. There is no consolidation, pleural effusion or pneumothorax. There is a stable prominent cardiac silhouette. IMPRESSION: Suspected chronic diffuse interstitial prominence and stable prominent chronic silhouette. There is no consolidated infiltrate. VTE Prophylaxis Ordered VTE Prophylaxis Devices: Yes VTE Pharmacological Prophylaxi: Yes Assessment/Plan Assessment/Plan A/P: Acute encephalopathy - due to sepsis from likely UTI, will r/o COVID 19 as well given respiratory symptoms UTI - still with abnormal UA, culture may not be of great use given 5 days of antibiotics, will change to zosyn for concern for possible sepsis due to MDRO, will downgrade antibiotics based on culture results Cough - history of asthma, will give nebulizers. R/o COVID 19 Sepsis - febrile, tachycardic, given IVF and empiric rocephin in ED. Lactate normal HTN - cont home meds Asthma - nebulizers DM2 - sliding scale insulin Moderate protein calorie malnutrition - due to sepsis, start early nutrition FEN - ADA diet PPX - lovenox FULL CODE Dispo - inpatient Justifications for Admission Other Justification CARLITOS RODRIGUEZ MD May 12, 2021 17:02
[2021-05-12] MEDS: ENOXAPARIN 40 MG/0.4 ML SYRINGE. SQ SCH (17:23)
[2021-05-12] MEDS ORDERED: ALBUTEROL SULFATE 2.5 MG/3 ML NEBU. NEB PRN (17:30)
[2021-05-12] MEDS: IPRATRPIUM/ALBUTEROL 0.5/2.5MG 3 ML NEBU. NEB SCH (18:35)
[2021-05-12] MEDS: BUDESONIDE 0.5 MG/2 ML NEBU. NEB SCH (18:35)
[2021-05-12 19:00] VITALS: BP 136/84
[2021-05-12] MEDS ORDERED: PIP/TAZO PER PHARMACY MC PRN (21:00)
--- NOTE | 2021-05-12 21:55 | NUR ---
Asked patient about her orange allergy prior to Metamucil administration - patient stated that she can tolerate orange flavor but not orange fruit, orange fruit makes her itchy. Patient also stated that she has taken orange flavored Metamucil in the past.
[2021-05-12] MEDS: PSYLLIUM HUSK (SUGAR FREE) 1 PKT PACKET PO SCH (21:59)
[2021-05-12] MEDS: PIPERACILLIN/TAZOBACTAM 3.375 GM in IV NORMAL SALINE 50ML 50 ML IV SCH (21:59)
[2021-05-12] MEDS: ACETAMINOPHEN 325 MG TABLET. PO PRN (22:17)
[2021-05-12 23:00] VITALS: BP 126/57
[2021-05-13 03:00] VITALS: BP 120/66
[2021-05-13] MEDS ORDERED: ASCO500C9 PO (03:12)
[2021-05-13] MEDS ORDERED: GLIM2TAB7 PO (03:12)
[2021-05-13] MEDS ORDERED: CRAN1CAP12 PO (03:12)
[2021-05-13] MEDS: PIPERACILLIN/TAZOBACTAM 3.375 GM in IV NORMAL SALINE 50ML 50 ML IV SCH ×4 (06:26→23:53)
[2021-05-13 07:00] VITALS: BP 115/61
[2021-05-13] MEDS: BUDESONIDE 0.5 MG/2 ML NEBU. NEB SCH ×2 (07:14→18:16)
[2021-05-13] MEDS: IPRATRPIUM/ALBUTEROL 0.5/2.5MG 3 ML NEBU. NEB SCH ×5 (07:14→18:16)
[2021-05-13 07:50] LABS: ALBUMIN 2.6 g/dL (3.4-5.0); ALBUMIN/GLOBULIN RATIO 0.6 (1.0-1.7); CALCIUM 8.7 mg/dL (8.5-10.1); CREATININE 0.9 mg/dL (0.6-1.0); GFR 61.7; POTASSIUM 3.7 mmol/L (3.5-5.1); TOTAL BILIRUBIN 0.3 mg/dL (0.2-1.0); TOTAL PROTEIN 6.7 g/dL (6.4-8.2)
[2021-05-13 11:00] VITALS: BP 125/64
--- NOTE | 2021-05-13 11:04 | PDOC ---
[employer] PROGRESS NOTE Date of Service DOS: DATE: 05/13/21 TIME: 11:04 Chief Complaint Chief Complaint A/P: Acute encephalopathy - due to sepsis from likely UTI, will r/o COVID 19 as well given respiratory symptoms UTI - still with abnormal UA, culture may not be of great use given 5 days of antibiotics, will change to zosyn for concern for possible sepsis due to MDRO, will downgrade antibiotics based on culture results Cough - history of asthma, will give nebulizers. R/o COVID 19 Sepsis - febrile, tachycardic, given IVF and empiric rocephin in ED. 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 Was being treated presumptively for UTI with cipro for the past 5 days. Has been having a fever of about 102*F for the past week and a productive cough.She c/o myalgias and difficulty breathing. Is aware of confusion. EKG sinus tachycardia at 115 bpm, unremarkable intervals, left axis deviation, occasional PVCs without obvious ischemic findings, no ST elevations or TWI WBC 12.6, Hb 14.2, platelets 152, NA 140, K3.9, BUN 13, CR 0.9, glucose 113 lactic acid 1.5, LFTs within normal laboratory limits albumin 2.8, urine with leuk large leukoesterase and blood rapid COVID-19 negative chest radiograph with no acute findings but diffuse interstitial prominence,chronic. Admitted for further care. Febrile up to 102 F overnight. She is antibiotic to Zosyn. Still short of breath with some chest discomfort after coughing. Less confused today. COVID- 19 PCR returned negative. Vitals/I&O Vitals/I&O: Vital Signs Date Time Temp Pulse Resp B/P (MAP) Pulse Ox O2 Delivery O2 Flow Rate FiO2 05/13/21 07:00 98.6 88 20 115/61 (79) 95 98.6 05/12/21 19:30 Nasal Cannula 2.0 I & O 05/12/21 05/12/21 05/13/21 15:00 23:00 07:00 Intake Total 2000 ml 340 ml Balance 2000 ml 340 ml Physical Exam General: Alert, Cooperative, moderate distress Lungs: Clear Abdomen: Normal bowel sounds, Soft, No tenderness, No hepatosplenomegaly, No masses Extremities: No clubbing, No cyanosis, No edema, Normal pulses, No tenderness/swelling Skin: No rashes, No breakdown, No significant lesion Labs Labs: Laboratory Tests Test 05/12/21 12:45 05/12/21 13:59 05/12/21 14:08 05/12/21 14:15 Troponin I High Sensitivity 30 ng/L (4-50) SARS-CoV-2 Antigen (Rapid) Negative (NEGATIVE) Urine Collection Type U cath Urine Color Yellow Urine Clarity Cloudy Urine pH 7.5 (<5.0-8.0) Urine Specific [place] 1.020 (1.000-1.030) Urine Protein 30 mg/dL (NEG-TRACE) Urine Glucose (UA) Negative mg/dL (NEG) Urine Ketones (Stick) Negative mg/dL (NEG) Urine Blood Moderate (NEG) Urine Nitrite Negative (NEG) Urine Bilirubin Negative (NEG) Urine Urobilinogen Dipstick 0.2 mg/dL (0.2 mg/dL) Urine Leukocyte Esterase Large (NEG) Urine RBC 3-5 /HPF (0-2) Urine WBC Tntc /HPF (0-4) Urine Bacteria Few /HPF (0-FEW) White Blood Count 12.6 x10^3/uL (4.0-11.0) Red Blood Count 4.76 x10^6/uL (3.50-5.40) Hemoglobin 14.2 g/dL (12.0-15.5) Hematocrit 43.2 % (36.0-47.0) Mean Corpuscular Volume 91 fL (79-100) Mean Corpuscular Hemoglobin 30 pg (25-35) Mean Corpuscular Hemoglobin Concent 33 g/dL (31-37) Red Cell Distribution Width 13.3 % (11.5-14.5) Platelet Count 152 x10^3/uL (140-400) Neutrophils (%) (Auto) 75 % (31-73) Lymphocytes (%) (Auto) 15 % (24-48) Monocytes (%) (Auto) 10 % (0-9) Eosinophils (%) (Auto) 0 % (0-3) Basophils (%) (Auto) 0 % (0-3) Neutrophils # (Auto) 9.5 x10^3/uL (1.8-7.7) Lymphocytes # (Auto) 1.8 x10^3/uL (1.0-4.8) Monocytes # (Auto) 1.3 x10^3/uL (0.0-1.1) Eosinophils # (Auto) 0.0 x10^3/uL (0.0-0.7) Basophils # (Auto) 0.0 x10^3/uL (0.0-0.2) Test 05/12/21 15:45 05/12/21 20:35 05/13/21 06:25 05/13/21 07:41 Sodium Level 140 mmol/L (136-145) 142 mmol/L (136-145) Potassium Level 3.9 mmol/L (3.5-5.1) 3.7 mmol/L (3.5-5.1) Chloride Level 105 mmol/L (98-107) 108 mmol/L (98-107) Carbon Dioxide Level 27 mmol/L (21-32) 25 mmol/L (21-32) Anion Gap 8 (6-14) 9 (6-14) Blood Urea Nitrogen 13 mg/dL (7-20) 11 mg/dL (7-20) Creatinine 0.9 mg/dL (0.6-1.0) 0.9 mg/dL (0.6-1.0) Estimated GFR (Cockcroft-Gault) 61.7 61.7 BUN/Creatinine Ratio 14 (6-20) 12 (6-20) Glucose Level 113 mg/dL (70-99) 107 mg/dL (70-99) Lactic Acid Level 1.5 mmol/L (0.4-2.0) Calcium Level 8.7 mg/dL (8.5-10.1) 8.7 mg/dL (8.5-10.1) Total Bilirubin 0.3 mg/dL (0.2-1.0) 0.3 mg/dL (0.2-1.0) Aspartate Amino Transf (AST/SGOT) 31 U/L (15-37) 18 U/L (15-37) Alanine Aminotransferase (ALT/SGPT) 38 U/L (14-59) 31 U/L (14-59) Alkaline Phosphatase 71 U/L (46-116) 60 U/L (46-116) Total Protein 7.2 g/dL (6.4-8.2) 6.7 g/dL (6.4-8.2) Albumin 2.8 g/dL (3.4-5.0) 2.6 g/dL (3.4-5.0) Albumin/Globulin Ratio 0.6 (1.0-1.7) 0.6 (1.0-1.7) Glucose (Fingerstick) 127 mg/dL (70-99) 124 mg/dL (70-99) Assessment and Plan Assessmemt and Plan Problems Medical Problems: (1) Sepsis secondary to UTI Status: Acute Comment Review of Relevant I have reviewed the following items keron (where applicable) has been applied. Medications: Current Medications Medications (Trade) Dose Ordered Sig/Fransico Route PRN Reason Start Time Stop Time Status Last Admin Dose Admin Sodium Chloride 1,000 ml @ 1,000 mls/hr 1X ONCE IV 05/12/21 14:30 05/12/21 15:29 DC 05/12/21 15:01 Acetaminophen (Tylenol) 1,000 mg 1X ONCE PO 05/12/21 14:30 05/12/21 14:32 DC 05/12/21 15:00 Ceftriaxone Sodium (Rocephin) 1 gm 1X ONCE IVP 05/12/21 16:45 05/12/21 16:54 DC 05/12/21 17:12 Sodium Chloride 1,000 ml @ 1,000 mls/hr 1X ONCE IV 05/12/21 16:45 05/12/21 17:44 DC 05/12/21 17:06 Acetaminophen (Tylenol) 650 mg PRN Q6HRS PRN PO MILD PAIN / TEMP > 100.3'F 05/12/21 17:00 05/12/21 22:17 Ondansetron HCl (Zofran) 4 mg PRN Q4HRS PRN IVP NAUSEA/VOMITING 05/12/21 17:00 05/12/21 22:17 Psyllium Hydrophilic Mucilloid (Metamucil Fiber Packet) 1 pkt QHS PO 05/12/21 21:00 05/12/21 21:59 Enoxaparin Sodium (Lovenox 40mg Syringe) 40 mg Q24H SQ 05/12/21 17:00 05/12/21 17:23 Piperacillin Sod/ Tazobactam Sod 3.375 gm/Sodium Chloride 50 ml @ 100 mls/hr Q6HRS IV 05/12/21 22:00 05/13/21 06:26 Justifications for Admission Other Justification CARLITOS RODRIGUEZ MD May 13, 2021 11:04
[2021-05-13] MEDS: POLYETHYLENE GLYCOL 3350 17 GM PACKET. PO SCH (12:40)
[2021-05-13] MEDS: MONTELUKAST SODIUM 10 MG TABLET. PO SCH (12:40)
[2021-05-13] MEDS: CETIRIZINE HCL 10 MG TABLET. PO SCH (12:41)
[2021-05-13] MEDS: PANTOPRAZOLE 40 MG TABLET.DR. PO SCH (12:43)
[2021-05-13 15:00] VITALS: BP 122/69
[2021-05-13] MEDS ORDERED: FUROSEMIDE 20 MG/2 ML VIAL. IVP ONE (15:45)
[2021-05-13] MEDS: ENOXAPARIN 40 MG/0.4 ML SYRINGE. SQ SCH (17:08)
[2021-05-13] MEDS: BENZOCAINE/MENTHOL LOZENGE. PO PRN (17:41)
[2021-05-13 19:00] VITALS: BP 112/54
[2021-05-13] MEDS: PSYLLIUM HUSK (SUGAR FREE) 1 PKT PACKET PO SCH (20:49)
[2021-05-13] MEDS: LACTOBACILLUS RHAMNOSUS GG 1 CAPSULE. PO SCH (20:50)
[2021-05-13] MEDS: ASPIRIN CHEWABLE 81 MG TABLET. PO SCH (20:50)
[2021-05-13] MEDS: cycloSPORINE 0.05% OPHTH DROPERETTE. OU SCH (20:50)
[2021-05-13] MEDS: GLIMEPIRIDE 2 MG TABLET. PO SCH (20:50)
[2021-05-13] MEDS ORDERED: GABAPENTIN 100 MG CAPSULE. PO SCH (21:00)
[2021-05-13] MEDS: ACETAMINOPHEN 325 MG TABLET. PO PRN (21:57)
[2021-05-13 23:00] VITALS: BP 113/55
[2021-05-14 03:00] VITALS: BP 111/45
[2021-05-14 04:50] LABS: BASO % 0 % (0-3); EOS # 0.2 x10^3/uL (0.0-0.7); EOS % 2 % (0-3); HEMATOCRIT 39.3 % (36.0-47.0); HEMOGLOBIN 12.7 g/dL (12.0-15.5); LYMPH # 2.4 x10^3/uL (1.0-4.8); LYMPH % 28 % (24-48); MEAN CORPUSCULAR HEMOGLOBIN 30 pg (25-35); MEAN CORPUSCULAR HGB CONC 32 g/dL (31-37); MEAN CORPUSCULAR VOLUME 93 fL (79-100); MONO # 1.4 x10^3/uL (0.0-1.1); MONO % 16 % (0-9); NEUT # 4.5 x10^3/uL (1.8-7.7); NEUT % 53 % (31-73); PLATELET COUNT 132 x10^3/uL (140-400); RED BLOOD COUNT 4.23 x10^6/uL (3.50-5.40); RED CELL DISTRIBUTION WIDTH 13.6 % (11.5-14.5); WHITE BLOOD COUNT 8.5 x10^3/uL (4.0-11.0)
[2021-05-14 05:09] LABS: CALCIUM 8.5 mg/dL (8.5-10.1); CREATININE 1.1 mg/dL (0.6-1.0); POTASSIUM 3.4 mmol/L (3.5-5.1)
[2021-05-14] MEDS: PIPERACILLIN/TAZOBACTAM 3.375 GM in IV NORMAL SALINE 50ML 50 ML IV SCH ×3 (06:30→18:30)
[2021-05-14] MEDS: PANTOPRAZOLE 40 MG TABLET.DR. PO SCH (06:30)
[2021-05-14] MEDS: IPRATRPIUM/ALBUTEROL 0.5/2.5MG 3 ML NEBU. NEB SCH ×4 (07:35→18:15)
[2021-05-14] MEDS: BUDESONIDE 0.5 MG/2 ML NEBU. NEB SCH ×2 (07:35→18:15)
--- NOTE | 2021-05-14 08:05 | PDOC ---
[employer] PROGRESS NOTE Date of Service DOS: DATE: 05/14/21 TIME: 08:00 Chief Complaint Chief Complaint A/P: Acute encephalopathy - due to sepsis from likely UTI, will r/o COVID 19 as well given respiratory symptoms UTI - still with abnormal UA, culture may not be of great use given antibiotic exposure, will change to zosyn , will downgrade antibiotics based on culture results Cough - history of asthma, will give nebulizers. R/o COVID 19 Sepsis - febrile, tachycardic, given IVF and empiric rocephin in ED. Lactate normal. Repeat IVF HTN - cont home meds Acute Asthma exacerbation - nebulizers. 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 Was tanya ng treated presumptively for UTI with cipro for the past 5 days. Has been having a fever of about 102*F for the past week and a productive cough.She c/o myalgias and difficulty breathing. Is aware of confusion. No neck pain or nuchal rigidity. EKG sinus tachycardia at 115 bpm, unremarkable intervals, left axis deviation, occasional PVCs without obvious ischemic findings, no ST elevations or TWI WBC 12.6, Hb 14.2, platelets 152, NA 140, K3.9, BUN 13, CR 0.9, glucose 113 lactic acid 1.5, LFTs within normal laboratory limits albumin 2.8, urine with leuk large leukoesterase and blood rapid COVID-19 negative chest radiograph with no acute findings but diffuse interstitial prominence,chronic. Admitted for further care. 05/14: Febrile up to 102 F. She is antibiotic to Zosyn. Still short of breath with some chest discomfort after coughing. Less confused today. COVID-19 PCR returned negative. Febrile 102.4 F overnight. Shortness of breath improved slightly. Some abdominal discomfort today. Going for CT abdomen/pelvis. Vitals/I&O Vitals/I&O: Vital Signs Date Time Temp Pulse Resp B/P (MAP) Pulse Ox O2 Delivery O2 Flow Rate FiO2 05/14/21 07:36 97 Nasal Cannula 2.0 05/14/21 03:00 99.1 102 20 111/45 (67) 99.1 I & O 05/13/21 05/13/21 05/14/21 15:00 23:00 07:00 Intake Total 0 ml 0 ml Balance 0 ml 0 ml Physical Exam General: Alert, Cooperative, moderate distress Lungs: Clear Abdomen: Normal bowel sounds, Soft, No tenderness, No hepatosplenomegaly, No masses Extremities: No clubbing, No cyanosis, No edema, Normal pulses, No tender ness/swelling Skin: No rashes, No breakdown, No significant lesion Labs Labs: Laboratory Tests Test 05/13/21 12:40 05/13/21 12:44 05/13/21 20:40 05/13/21 23:50 D-Dimer (Nunu) < 0.27 ug/mlFEU Glucose (Fingerstick) 126 mg/dL (70-99) 328 mg/dL (70-99) Lactic Acid Level 1.8 mmol/L (0.4-2.0) Magnesium Level 2.1 mg/dL (1.8-2.4) Test 05/14/21 04:00 White Blood Count 8.5 x10^3/uL (4.0-11.0) Red Blood Count 4.23 x10^6/uL (3.50-5.40) Hemoglobin 12.7 g/dL (12.0-15.5) Hematocrit 39.3 % (36.0-47.0) Mean Corpuscular Volume 93 fL (79-100) Mean Corpuscular Hemoglobin 30 pg (25-35) Mean Corpuscular Hemoglobin Concent 32 g/dL (31-37) Red Cell Distribution Width 13.6 % (11.5-14.5) Platelet Count 132 x10^3/uL (140-400) Neutrophils (%) (Auto) 53 % (31-73) Lymphocytes (%) (Auto) 28 % (24-48) Monocytes (%) (Auto) 16 % (0-9) Eosinophils (%) (Auto) 2 % (0-3) Basophils (%) (Auto) 0 % (0-3) Neutrophils # (Auto) 4.5 x10^3/uL (1.8-7.7) Lymphocytes # (Auto) 2.4 x10^3/uL (1.0-4.8) Monocytes # (Auto) 1.4 x10^3/uL (0.0-1.1) Eosinophils # (Auto) 0.2 x10^3/uL (0.0-0.7) Basophils # (Auto) 0.0 x10^3/uL (0.0-0.2) Sodium Level 144 mmol/L (136-145) Potassium Level 3.4 mmol/L (3.5-5.1) Chloride Level 109 mmol/L (98-107) Carbon Dioxide Level 28 mmol/L (21-32) Anion Gap 7 (6-14) Blood Urea Nitrogen 16 mg/dL (7-20) Creatinine 1.1 mg/dL (0.6-1.0) Estimated GFR (Cockcroft-Gault) 49.0 Glucose Level 251 mg/dL (70-99) Calcium Level 8.5 mg/dL (8.5-10.1) Assessment and Plan Assessmemt and Plan Problems Medical Problems: (1) Sepsis secondary to UTI Status: Acute Comment Review of Relevant I have reviewed the following items keron (where applicable) has been applied. Medications: Current Medications Medications (Trade) Dose Ordered Sig/Fransico Route PRN Reason Start Time Stop Time Status Last Admin Dose Admin Aspirin (Aspirin Chewable) 81 mg QHS PO 05/13/21 21:00 05/13/21 20:50 Cyclosporine (Restasis) 1 drop BID OU 05/13/21 21:00 05/13/21 20:50 Gabapentin (Neurontin) 400 mg QHS PO 05/13/21 21:00 05/13/21 20:49 Glimepiride (Amaryl) 2 mg BID PO 05/13/21 21:00 05/13/21 20:50 Guaifenesin (Mucinex) 600 mg BID PO 05/13/21 12:00 05/13/21 20:50 Montelukast Sodium (Singulair) 10 mg DAILY PO 05/13/21 12:00 05/13/21 12:40 Polyethylene Glycol (miraLAX PACKET) 17 gm DAILY PO 05/13/21 12:00 05/13/21 12:40 Cetirizine HCl (ZyrTEC) 10 mg DAILY PO 05/13/21 12:00 05/13/21 12:41 Pantoprazole Sodium (Protonix) 40 mg DAILYAC PO 05/13/21 11:30 05/14/21 06:30 Lactobacillus Rhamnosus (Culturelle) 1 cap BID PO 05/13/21 21:00 05/13/21 20:50 Throat Lozenges (Cepacol Sore Throat Lozenge) 1 billie PRN Q2HRS PRN PO SORE THROAT 05/13/21 15:45 05/13/21 17:41 Furosemide (Lasix) 20 mg 1X ONCE IVP 05/13/21 15:45 05/13/21 15:50 DC 05/13/21 17:07 Justifications for Admission Other Justification CARLITOS RODRIGUEZ MD May 14, 2021 08:05
[2021-05-14] MEDS ORDERED: IOHEXOL 300 MG/ML 100ML VIAL. IV ONE (08:15)
[2021-05-14] MEDS ORDERED: IV NORMAL SALINE 1000ML BAG 1,000 ML IV ONE (08:15)
[2021-05-14] MEDS ORDERED: CONTRAST GIVEN. MC PRN (08:15)
[2021-05-14] MEDS: MONTELUKAST SODIUM 10 MG TABLET. PO SCH (09:35)
[2021-05-14] MEDS: FUROSEMIDE 20 MG TABLET PO SCH (09:39)
[2021-05-14] MEDS: LACTOBACILLUS RHAMNOSUS GG 1 CAPSULE. PO SCH ×2 (09:39→22:50)
[2021-05-14] MEDS: GLIMEPIRIDE 2 MG TABLET. PO SCH ×2 (09:39→22:51)
[2021-05-14] MEDS: CETIRIZINE HCL 10 MG TABLET. PO SCH (09:39)
[2021-05-14] MEDS: cycloSPORINE 0.05% OPHTH DROPERETTE. OU SCH ×2 (09:41→22:50)
[2021-05-14] MEDS: ACETAMINOPHEN 325 MG TABLET. PO PRN (09:48)
--- NOTE | 2021-05-14 11:33 | RAD ---
Exam Date: 05/14/2021 10:[address] ABDOMEN+PELVIS W Indication: Reason: Fever, abdominal pain / Spl. Instructions: OMNI 300 INJ. 60 MLS / History: . TECHNIQUE: CT examination of the abdomen and pelvis was performed following the administration of or al and nonionic intravenous contrast. One or more of the following dose reduction techniques were ut ilized: *Automated exposure control (AEC) *Adjustment of mA and/or kV according to patient size *Use of iterative reconstruction technique *CT scan done according to ALARA, or ALARA/IMAGE GENTLY COMPARISON: April 16, 2019 FINDINGS: The visualized lung bases demonstrate mild subsegmental atelectasis. The dome of the liver and part of the spleen are partially excluded on this exam. Multiple liver cys ts are again seen. A gallstone is again seen. Multiple left renal cysts are again seen. There is a duplicated collecting system on the left. The liver, gallbladder, spleen, pancreas, adrenal glands and kidneys are otherwise normal. Urinary bladder is normal in appearance. There is no bowel obstruction or inflammation. The appendix is normal. There is a small fat-contain ing and vocal hernia. Mild atherosclerotic calcifications are seen. No lymphadenopathy or ascites is seen. Degenerative changes are seen in the spine. IMPRESSION: No evidence of acute intra-abdominal pathology. Electronically signed by: Jay Nazario MD (05/14/2021 11:31 AM) [id number]
[2021-05-14] MEDS ORDERED: VANCOMYCIN 1.25 GM in IV NORMAL SALINE 250ML 250 ML IV ONE (12:30)
[2021-05-14] MEDS ORDERED: VANCOMYCIN PER PHARMACY MC PRN (12:30)
[2021-05-14] MEDS ORDERED: VANCOMYCIN 1.5 GM in IV NORMAL SALINE 500ML BAG 500 ML IV ONE (13:00)
[2021-05-14] MEDS: POLYETHYLENE GLYCOL 3350 17 GM PACKET. PO SCH (13:07)
[2021-05-14 14:56] VITALS: BP 117/69
[2021-05-14 15:30] VITALS: BP 147/83
--- NOTE | 2021-05-14 15:43 | NUR ---
Pharmacy Vancomycin Dosing Note S: Consulted to monitor and dose vancomycin started 05/14/21. O: SARA DAMON is a 70 year old F with Urosepsis, PERSISTENT FEVERS. Other Antibiotics: ZOSYN LABS: Last BUN: 16 Last Creatinine: 1.1 Creatinine Clearance: 44 mL/min Last WBC: 8.5 Tmax (past 24 hours): 102.4 Microbiology: NO GROWTH URINE/BLOOD Vancomycin Dosing: Dosing Weight: Actual Target Trough: 10-20 A: Based on: VANCO dosing guidelines P: 1. Begin Vancomycin 1500mg LOAD dose, then 1000 mg IV q24h 2. Follow up Trough level on 05/16/21 at 1330 3. Pharmacy will continue to monitor, follow and adjust therapy as needed. SHIRA DELGADO, [facility], 05/14/21 [id number]
[2021-05-14] MEDS ORDERED: IOHEXOL 300 MG/ML 100ML VIAL. ONE (15:53)
[2021-05-14 17:30] LABS: INFLUENZA A PATIENT NEGATIVE (NEGATIVE); INFLUENZA B PATIENT NEGATIVE (NEGATIVE)
[2021-05-14] MEDS: ENOXAPARIN 40 MG/0.4 ML SYRINGE. SQ SCH (18:30)
[2021-05-14 19:53] VITALS: BP 126/63
[2021-05-14] MEDS: GABAPENTIN 400 MG CAPSULE. PO SCH (22:50)
[2021-05-14] MEDS: ASPIRIN CHEWABLE 81 MG TABLET. PO SCH (22:50)
[2021-05-14] MEDS: PSYLLIUM HUSK (SUGAR FREE) 1 PKT PACKET PO SCH (22:51)
[2021-05-14 23:13] VITALS: BP 116/62
[2021-05-15] MEDS: ACETAMINOPHEN 325 MG TABLET. PO PRN (00:40)
[2021-05-15] MEDS: PIPERACILLIN/TAZOBACTAM 3.375 GM in IV NORMAL SALINE 50ML 50 ML IV SCH ×5 (00:40→23:39)
[2021-05-15 05:13] VITALS: BP 128/79
[2021-05-15 06:37] LABS: BASO % 0 % (0-3); EOS # 0.4 x10^3/uL (0.0-0.7); EOS % 4 % (0-3); HEMATOCRIT 38.5 % (36.0-47.0); HEMOGLOBIN 12.3 g/dL (12.0-15.5); LYMPH # 2.1 x10^3/uL (1.0-4.8); LYMPH % 25 % (24-48); MEAN CORPUSCULAR HEMOGLOBIN 30 pg (25-35); MEAN CORPUSCULAR HGB CONC 32 g/dL (31-37); MEAN CORPUSCULAR VOLUME 92 fL (79-100); MONO % 12 % (0-9); NEUT % 59 % (31-73); PLATELET COUNT 137 x10^3/uL (140-400); RED BLOOD COUNT 4.16 x10^6/uL (3.50-5.40); RED CELL DISTRIBUTION WIDTH 13.3 % (11.5-14.5); WHITE BLOOD COUNT 8.5 x10^3/uL (4.0-11.0)
[2021-05-15 07:00] VITALS: BP 118/64
[2021-05-15] MEDS: IPRATRPIUM/ALBUTEROL 0.5/2.5MG 3 ML NEBU. NEB SCH ×4 (07:02→18:11)
[2021-05-15] MEDS: BUDESONIDE 0.5 MG/2 ML NEBU. NEB SCH ×2 (07:03→18:11)
[2021-05-15 07:14] LABS: ALBUMIN 2.3 g/dL (3.4-5.0); ALBUMIN/GLOBULIN RATIO 0.5 (1.0-1.7); CALCIUM 8.4 mg/dL (8.5-10.1); CREATININE 0.9 mg/dL (0.6-1.0); GFR 61.7; POTASSIUM 3.6 mmol/L (3.5-5.1); TOTAL BILIRUBIN 0.3 mg/dL (0.2-1.0); TOTAL PROTEIN 6.7 g/dL (6.4-8.2)
--- NOTE | 2021-05-15 07:54 | PDOC ---
[employer] PROGRESS NOTE Date of Service DOS: DATE: 05/15/21 TIME: 07:52 Chief Complaint Chief Complaint A/P: Acute encephalopathy - due to sepsis from likely UTI, will r/o COVID 19 as well given respiratory symptoms. Improving UTI - still with abnormal UA, culture may not be of great use given antibiotic exposure, will change to zosyn , will downgrade antibiotics based on culture results Sepsis - febrile, tachycardic, given IVF and empiric rocephin in ED. Lactate normal. Repeat IVF HTN - cont home meds Acute Asthma exacerbation - nebulizers. negative covid 19 Cough - history of asthma, will give nebulizers. 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 Was being treated presumptively for UTI with cipro for the past 5 days. Has been having a fever of about 102*F for the past week and a productive cough.She c/o myalgias and difficulty breathing. Is aware of confusion. No neck pain or nuchal rigidity. EKG sinus tachycardia at 115 bpm, unremarkable intervals, left axis deviation, occasional PVCs without obvious ischemic findings, no ST elevations or TWI WBC 12.6, Hb 14.2, platelets 152, NA 140, K3.9, BUN 13, CR 0.9, glucose 113 lact ic acid 1.5, LFTs within normal laboratory limits albumin 2.8, urine with leuk large leukoesterase and blood rapid COVID-19 negative chest radiograph with no acute findings but diffuse interstitial prominence,chronic. Admitted for further care. 05/13: Febrile up to 102 F. She is antibiotic to Zosyn. Still short of breath with some chest discomfort after coughing. Less confused today. COVID-19 PCR returned negative. 05/14: Febrile 102.4 F overnight. Shortness of breath improved slightly. Some abdominal discomfort today. No abnormalities on CT abdomen/pelvis. 05/15: Blood cultures with staph hominis, and urine culture no growth to date. Rapid influenza negative. Afebrile past 24 hours. ID consult due to fevers for 48 hours on initial admit now afebrile abdominal pain is resolved but having some chest pain with coughing. CT chest without contrast ordered. Change vancomycin to doxycycline Vitals/I&O Vitals/I&O: Vital Signs Date Time Temp Pulse Resp B/P (MAP) Pulse Ox O2 Delivery O2 Flow Rate FiO2 05/15/21 07:04 98 Nasal Cannula 2.0 05/15/21 05:13 98.7 89 24 128/79 (95) 98.7 I & O 05/14/21 05/14/21 05/15/21 15:00 23:00 07:00 Intake Total 750 ml 700 ml Balance 750 ml 700 ml Physical Exam General: Alert, Cooperative, moderate distress Lungs: Clear Abdomen: Normal bowel sounds, Soft, No tenderness, No hepatosplenomegaly, No masses Extremities: No clubbing, No cyanosis, No edema, Normal pulses, No tenderness/swelling Skin: No rashes, No breakdown, No significant lesion Labs Labs: Laboratory Tests Test 05/14/21 09:26 05/14/21 09:45 05/14/21 13:11 05/14/21 17:21 Glucose (Fingerstick) 121 mg/dL (70-99) 153 mg/dL (70-99) 232 mg/dL (70-99) Influenza Type A Antigen Negative (NEGATIVE) Influenza Type B Antigen Negative (NEGATIVE) Test 05/15/21 06:15 White Blood Count 8.5 x10^3/uL (4.0-11.0) Red Blood Count 4.16 x10^6/uL (3.50-5.40) Hemoglobin 12.3 g/dL (12.0-15.5) Hematocrit 38.5 % (36.0-47.0) Mean Corpuscular Volume 92 fL (79-100) Mean Corpuscular Hemoglobin 30 pg (25-35) Mean Corpuscular Hemoglobin Concent 32 g/dL (31-37) Red Cell Distribution Width 13.3 % (11.5-14.5) Platelet Count 137 x10^3/uL (140-400) Neutrophils (%) (Auto) 59 % (31-73) Lymphocytes (%) (Auto) 25 % (24-48) Monocytes (%) (Auto) 12 % (0-9) Eosinophils (%) (Auto) 4 % (0-3) Basophils (%) (Auto) 0 % (0-3) Neutrophils # (Auto) 5.0 x10^3/uL (1.8-7.7) Lymphocytes # (Auto) 2.1 x10^3/uL (1.0-4.8) Monocytes # (Auto) 1.0 x10^3/uL (0.0-1.1) Eosinophils # (Auto) 0.4 x10^3/uL (0.0-0.7) Basophils # (Auto) 0.0 x10^3/uL (0.0-0.2) Sodium Level 145 mmol/L (136-145) Potassium Level 3.6 mmol/L (3.5-5.1) Chloride Level 110 mmol/L (98-107) Carbon Dioxide Level 28 mmol/L (21-32) Anion Gap 7 (6-14) Blood Urea Nitrogen 11 mg/dL (7-20) Creatinine 0.9 mg/dL (0.6-1.0) Estimated GFR (Cockcroft-Gault) 61.7 BUN/Creatinine Ratio 12 (6-20) Glucose Level 98 mg/dL (70-99) Calcium Level 8.4 mg/dL (8.5-10.1) Total Bilirubin 0.3 mg/dL (0.2-1.0) Aspartate Amino Transf (AST/SGOT) 18 U/L (15-37) Alanine Aminotransferase (ALT/SGPT) 32 U/L (14-59) Alkaline Phosphatase 53 U/L (46-116) Total Protein 6.7 g/dL (6.4-8.2) Albumin 2.3 g/dL (3.4-5.0) Albumin/Globulin Ratio 0.5 (1.0-1.7) Assessment and Plan Assessmemt and Plan Problems Medical Problems: (1) Sepsis secondary to UTI Status: Acute Comment Review of Relevant I have reviewed the following items keron (where applicable) has been applied. Medications: Current Medications Medications (Trade) Dose Ordered Sig/Fransico Route PRN Reason Start Time Stop Time Status Last Admin Dose Admin Furosemide (Lasix) 20 mg [id number] PO 10/30/21 09:00 05/14/21 09:39 Sodium Chloride 1,000 ml @ 75 mls/hr 1X ONCE IV 05/14/21 08:15 05/14/21 21:34 DC 05/14/21 11:29 Iohexol (Omnipaque 300 Mg/ml) 60 ml 1X ONCE IV 05/14/21 08:15 05/14/21 08:16 DC 05/14/21 10:25 Vancomycin HCl (Vanco Per Pharmacy) 1 each PRN DAILY PRN MC SEE COMMENTS 05/14/21 12:30 05/14/21 15:39 Vancomycin HCl 1.5 gm/Sodium Chloride 500 ml @ 250 mls/hr 1X ONCE IV 05/14/21 13:00 05/14/21 14:59 DC 05/14/21 13:13 Gabapentin (Neurontin) 400 mg QHS PO 05/14/21 21:00 05/14/21 22:50 Justifications for Admission Other Justification CARLITOS RODRIGUEZ MD May 15, 2021 07:54
[2021-05-15 11:00] VITALS: BP 127/67
[2021-05-15] MEDS: CETIRIZINE HCL 10 MG TABLET. PO SCH (12:30)
[2021-05-15] MEDS: MONTELUKAST SODIUM 10 MG TABLET. PO SCH (12:30)
[2021-05-15] MEDS: LACTOBACILLUS RHAMNOSUS GG 1 CAPSULE. PO SCH ×2 (12:31→23:39)
[2021-05-15] MEDS: PANTOPRAZOLE 40 MG TABLET.DR. PO SCH (12:33)
[2021-05-15] MEDS: FUROSEMIDE 20 MG TABLET PO SCH (12:33)
[2021-05-15] MEDS: GLIMEPIRIDE 2 MG TABLET. PO SCH ×2 (12:33→23:34)
[2021-05-15] MEDS: POLYETHYLENE GLYCOL 3350 17 GM PACKET. PO SCH (12:34)
[2021-05-15] MEDS: cycloSPORINE 0.05% OPHTH DROPERETTE. OU SCH ×2 (12:34→23:39)
[2021-05-15] MEDS: DOXYCYCLINE HYCLATE 100 MG TABLET PO SCH ×2 (12:55→23:39)
[2021-05-15] MEDS: BENZONATATE 100 MG CAPSULE. PO SCH ×2 (12:55→23:39)
--- NOTE | 2021-05-15 13:55 | CONS ---
DATE OF CONSULTATION: 05/15/2021 REFERRING PHYSICIAN: Dr. Burrell. REASON FOR CONSULTATION: Fever. HISTORY OF PRESENT ILLNESS: A 70-year-old female who presented to the ER on 05/12/2021 with altered mental status, worsening shortness of breath and fever of 102, generalized weakness, productive cough. The patient also had some chills. Her p.o. intake was poor. She had occasional intermittent headache. She had been on ciprofloxacin prior to admission for one week. The patient's sodium was ____, creatinine of 0.9. Lactate of 1.5. D-dimer of less than 0.27. The patient was given Rocephin in the ER, temperature was 101.3. White count of 12.6. The patient had pyuria with moderate blood. SARS-COVID and influenza screen was done, which was negative. Chest x-ray was done on admission, which showed suspected chronic diffuse interstitial prominence. No consolidated infiltrate. The patient was started on IV vancomycin and Zosyn. The patient continued to have fever and cough. The patient underwent CT abdomen and pelvis with and without contrast, which did not show any acute intra-abdominal pathology. The patient had fever of 102 yesterday. ID consultation has been requested for antibiotic management. The patient's nun from the [facility] was at bedside. The patient is up to date on COVID vaccine. Denies any sick contact. Denies being on any antibiotics prior to admission. She does have bronchitis and allergies. She has dry cough with some sinus congestion. She is currently on 2 liters O2 by nasal cannula. PAST MEDICAL HISTORY: COPD, sleep apnea, seasonal allergies, peripheral vascular disease, hypertension, fibromyalgia, arthritis, prediabetes, fatty liver disease, GERD, venous ulcer, plastic surgery on left leg for ulcer that healed well, asthma. PAST SURGICAL HISTORY: Right knee partial replacement; cataract; plastic surgery on the left leg, healed; and cardiac catheterization. 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 FAMILY HISTORY: Noncontributory. ALLERGIES: ADHESIVE TAPE, BACITRACIN, AND CHOCOLATE ; CORN; FORMALDEHYDE, [place], OATS, ORANGE, PEANUT . NO REPORTS OF ANTIBIOTIC ALLERGIES. CURRENT MEDICATIONS: Vancomycin, Zosyn. Other medications reviewed in medication list. REVIEW OF SYSTEMS: Negative except for HPI. Somewhat slow in answering questions. PHYSICAL EXAMINATION: VITAL SIGNS: T-max 98.5, pulse 86, respirations 17, blood pressure 118/64, and oxygen saturation 98% on 2 liters O2 by nasal cannula. GENERAL: Alert, oriented x 3 female, cooperative, in mild distress from coughing, appears tired. Able to answer all questions. HEENT: Normocephalic, atraumatic. Anicteric. No sinus congestion. No sinus tenderness, no oropharyngeal exudate. Dentition fair. NECK: Supple. LUNGS: Decreased breath sounds at the bases. No expiratory wheezing. No accessory muscle use. HEART: S1, S2. No murmurs. ABDOMEN: Obese, soft. Bowel sounds present, nontender. EXTREMITIES: No edema or cyanosis. DERMATOLOGIC: Warm, dry, no generalized rash. Previous scars well healed of both lower extremities. NEUROLOGIC: Alert, awake, answers a few questions appropriately. PIV looks clean. LABORATORY DATA: WBC is 8.5, was 12.6; hemoglobin 12.3; platelets 137. Sodium ____, potassium 3.6, chloride 110, bicarb 28, BUN 11, creatinine 0.9, albumin 2.3. UA shows large leukocyte esterase, wbc's too numerous to count. SARS-COVID negative. Influenza screen negative. Micro: Blood culture 05/12, negative. Urine culture: Negative. Blood culture 05/12 also has Staph hominis /4 bottles. IMAGING: Chest x-ray as above. CT abdomen and pelvis as above. IMPRESSION: 1. Fever, source appears to be possibly respiratory though chest x-ray was negative for consolidation on admission. Covid negative. Status post COVID vaccination X2. Flu screen negative. Respiratory viral panel is not available at this facility. 2. Urinary tract infection present on admission. Urine cultures negative so far. Patient had been on ciprofloxacin a week prior to admission. CT abdomen and pelvis reviewed without any acute abnormality. 3. Acute encephalopathy. Improved 4. Leukocytosis. Improved blood cultures negative 5. Chronic obstructive pulmonary disease. 6. Sinus congestion. Seasonal allergies 7. Chronic bronchitis. RECOMMENDATIONS: 1. Discontinue vancomycin. 2. Continue Zosyn. Start doxycycline. 3. Obtain CT chest without contrast. Obtain urine Legionella antigen. Maintain aspiration precautions. 4. Continue supportive care. 5. Monitor labs and cultures. 6. We will follow up on culture results. 7. Discussed with Dr. Burrell Thank you, Dr. Burrell, for asking us to participate in this patient's care. We will continue to follow. Discussed with nursing staff. Discussed with nun from [facility] at bedside. IVY/ADA/TITO DR: Anna TID: [id number] WING
[2021-05-15] MEDS ORDERED: VANCOMYCIN 1 GM in IV NORMAL SALINE 250ML 250 ML IV SCH (14:00)
--- NOTE | 2021-05-15 14:41 | RAD ---
CT chest without contrast dated 05/15/2021. COMPARISON: None. CLINICAL INDICATION: Cough. TECHNIQUE: Contiguous axial imaging the chest performed without the administration of intravenous contrast. One or more of the following individualized dose reduction techniques were utilized for this examinat ion: 1. Automated exposure control 2. Adjustment of the mA and/or kV according to patient size 3. Use of iterative reconstruction technique. FINDINGS: Heart size mildly enlarged. No pericardial effusion. Calcified right paratracheal lymph node. No medi astinal, hilar or axillary lymphadenopathy. Thyroid gland is unremarkable. Scan was performed and extra rotation, limiting evaluation the airways. There is some patchy groundgl ass density throughout both lungs, likely related to low lung volumes and atelectasis. Suggestion of mild superimposed emphysema. No consolidation or pleural effusion. No pneumothorax. Small noncalcifie d pulmonary nodule in the right middle lobe on image 29 measures 3 mm, nonspecific. Limited images of the upper abdomen unremarkable. Low-density foci in the liver are unchanged. No sig nificant bony abnormality. Multilevel spondylosis. IMPRESSION: 1. Limited exam. No apparent acute abnormality. Electronically signed by: Jassi Nunes MD (05/15/2021 2:38 PM) [id number]
[2021-05-15 15:00] VITALS: BP 123/61
[2021-05-15] MEDS: ENOXAPARIN 40 MG/0.4 ML SYRINGE. SQ SCH (18:18)
[2021-05-15 19:00] VITALS: BP 123/60
[2021-05-15 23:30] VITALS: BP 138/70
[2021-05-15] MEDS: ASPIRIN CHEWABLE 81 MG TABLET. PO SCH (23:34)
[2021-05-15] MEDS: guaiFENesin DM 200MG/20MG 10 ML SYRUP PO PRN (23:34)
[2021-05-15] MEDS: PSYLLIUM HUSK (SUGAR FREE) 1 PKT PACKET PO SCH (23:34)
[2021-05-15] MEDS: GABAPENTIN 400 MG CAPSULE. PO SCH (23:34)
[2021-05-16] MEDS: ACETAMINOPHEN 325 MG TABLET. PO PRN (01:31)
[2021-05-16 03:33] VITALS: BP 126/63
[2021-05-16] MEDS: IPRATRPIUM/ALBUTEROL 0.5/2.5MG 3 ML NEBU. NEB SCH ×4 (06:31→20:00)
[2021-05-16] MEDS: BUDESONIDE 0.5 MG/2 ML NEBU. NEB SCH ×2 (06:31→20:00)
[2021-05-16 07:00] VITALS: BP 112/48
--- NOTE | 2021-05-16 09:15 | PDOC ---
Infectious Disease Note Subjective: Subjective Patient feels about the same T-max 100.4 Continues to have dry cough Denies any chills, nausea, vomiting, diarrhea, abdominal pain, symptoms. Vital Signs: Vital Signs Vital Signs Date Time Temp Pulse Resp B/P (MAP) Pulse Ox O2 Delivery O2 Flow Rate FiO2 05/16/21 07:00 98.0 82 18 112/48 (69) 92 98.0 05/16/21 06:25 Room Air 05/15/21 10:58 2.0 Physical Exam: PHYSICAL EXAM GENERAL: Alert, oriented x 3 female, cooperative, in mild distress from coughing, appears tired. Able to answer all questions. HEENT: Normocephalic, atraumatic. Anicteric. No sinus congestion. No sinus tenderness, no oropharyngeal exudate. Dentition fair. NECK: Supple. LUNGS: Decreased breath sounds at the bases. No expiratory wheezing. No accessory muscle use. HEART: S1, S2. No murmurs. ABDOMEN: Obese, soft. Bowel sounds present, nontender. EXTREMITIES: No edema or cyanosis. DERMATOLOGIC: Warm, dry, no generalized rash. Previous scars well healed of both lower extremities. NEUROLOGIC: Alert, awake, answers a few questions appropriately. PIV looks clean. Medications: Inpatient Meds: Medications reviewed. Labs: Lab Laboratory Tests Test 05/15/21 09:46 05/15/21 12:24 05/15/21 16:47 05/15/21 19:54 Glucose (Fingerstick) 163 mg/dL (70-99) 116 mg/dL (70-99) 239 mg/dL (70-99) 226 mg/dL (70-99) Test 05/16/21 08:04 Glucose (Fingerstick) 116 mg/dL (70-99) Micro Signed PATIENT: SARA DAMON MACCOUNT: [id number] : 1950 LOCATION: [facility] AGE: 70 SEX: F EXAM STATUS: ADM IN ORD. PHYSICIAN: ARVIND MORENO MD REASON: pt with cough chroniic bronchitis, fever LESLIE TO CALL WHEN COMING DOWN PROCEDURE: CT CHEST WO CONTRAST CT chest without contrast dated 05/15/2021. COMPARISON: None. CLINICAL INDICATION: Cough. TECHNIQUE: Contiguous axial imaging the chest performed without the administration of intravenous contrast. One or more of the following individualized dose reduction techniques were utilized for this examination: 1. Automated exposure control 2. Adjustment of the mA and/or kV according to patient size 3. Use of iterative reconstruction technique. FINDINGS: Heart size mildly enlarged. No pericardial effusion. Calcified right paratracheal lymph node. No mediastinal, hilar or axillary lymphadenopathy. Thyroid gland is unremarkable. Scan was performed and extra rotation, limiting evaluation the airways. There is some patchy groundglass density throughout both lungs, likely related to low lung volumes and atelectasis. Suggestion of mild superimposed emphysema. No consolidation or pleural effusion. No pneumothorax. Small noncalcified pulmonary nodule in the right middle lobe on image 29 measures 3 mm, nonspecific. Limited images of the upper abdomen unremarkable. Low-density foci in the liver are unchanged. No significant bony abnormality. Multilevel spondylosis. IMPRESSION: 1. Limited exam. No apparent acute abnormality. Objective: Assessment: 1. Fever, source appears to be possibly respiratory though chest x-ray was negative for consolidation on admission. Covid negative. Status post COVID vaccination X2. Flu screen negative. Respiratory viral panel is not available at this facility. CT chest negative for any gross abnormality. 2. Urinary tract infection present on admission. Urine cultures negative so far. Patient had been on ciprofloxacin a week prior to admission. CT abdomen and pelvis reviewed without any acute abnormality. Urinary incontinence 3. Acute encephalopathy. Improved 4. Leukocytosis. Improved blood cultures negative 5. Chronic obstructive pulmonary disease. 6. Sinus congestion. Seasonal allergies 7. Chronic bronchitis. Plan: Plan of Care Continue Zosyn and doxycycline; was on IV vancomycin Follow-up urine Legionella antigen Maintain aspiration cautions Continue supportive care Monitor labs and cultures If patient is able to give sputum please send for Gram stain and cultures Discussed with RN Discussed with NUN from [facility] at bedside ARVIND MORENO MD May 16, 2021 09:15
[2021-05-16] MEDS: cycloSPORINE 0.05% OPHTH DROPERETTE. OU SCH ×2 (09:48→21:00)
[2021-05-16] MEDS: LACTOBACILLUS RHAMNOSUS GG 1 CAPSULE. PO SCH ×2 (09:48→20:34)
[2021-05-16] MEDS: GLIMEPIRIDE 2 MG TABLET. PO SCH ×2 (09:49→20:34)
[2021-05-16] MEDS: BENZONATATE 100 MG CAPSULE. PO SCH ×3 (09:49→20:34)
[2021-05-16] MEDS: PANTOPRAZOLE 40 MG TABLET.DR. PO SCH (09:49)
[2021-05-16] MEDS: MONTELUKAST SODIUM 10 MG TABLET. PO SCH (09:49)
[2021-05-16] MEDS: DOXYCYCLINE HYCLATE 100 MG TABLET PO SCH ×2 (09:49→20:34)
[2021-05-16] MEDS: CETIRIZINE HCL 10 MG TABLET. PO SCH (09:49)
[2021-05-16] MEDS: POLYETHYLENE GLYCOL 3350 17 GM PACKET. PO SCH (09:50)
[2021-05-16 11:00] VITALS: BP 161/52
--- NOTE | 2021-05-16 11:58 | PDOC ---
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 Was being treated presumptively for UTI with cipro for the past 5 days. Has been having a fever of about 102*F for the past week and a productive cough.She c/o myalgias and difficulty breathing. Is aware of confusion. No neck pain or nuchal rigidity. EKG sinus tachycardia at 115 bpm, unremarkable intervals, left axis deviation, occasional PVCs without obvious ischemic findings, no ST elevations or TWI WBC 12.6, Hb 14.2, platelets 152, NA 140, K3.9, BUN 13, CR 0.9, glucose 113 lactic acid 1.5, LFTs within normal laboratory limits albumin 2.8, urine with leuk large leukoesterase and blood rapid COVID-19 negative chest radiograph with no acute findings but diffuse interstitial prominence,chronic. Admitted for further care. 05/13: Febrile up to 102 F. She is antibiotic to Zosyn. Still short of breath with some chest discomfort after coughing. Less confused today. COVID-19 PCR returned negative. 05/14: Febrile 102.4 F overnight. Shortness of breath improved slightly. Some abdominal discomfort today. No abnormalities on CT abdomen/pelvis. 05/15: Blood cultures with staph hominis, and urine culture no growth to date. Rapid influenza negative. Afebrile past 24 hours. ID consult due to fevers for 48 hours on initial admit now afebrile abdominal pain is resolved but having some chest pain with coughing. CT chest without contrast ordered. Change vancomycin to doxycycline 05/16 Patient seen and examined at bedside Chart reviewed Patient comfortable, NAD Afebrile (98.2) Patient AAOx3, feels more or less unchanged from yesterday. no complaints other than cough IV Abx and IV fluids running at time of exam Discussed case with RN and SW Vitals/I&O Vitals/I&O: Vital Signs Date Time Temp Pulse Resp B/P (MAP) Pulse Ox O2 Delivery O2 Flow Rate FiO2 05/16/21 11:21 96 Room Air 05/16/21 09:49 82 112/48 05/16/21 07:00 98.0 18 98.0 05/15/21 10:58 2.0 I & O 05/15/21 05/15/21 05/16/21 15:00 23:00 07:00 Intake Total 240 ml Balance 240 ml Physical Exam Physical Exam: GENERAL: Alert, oriented x 3 female, cooperative, in mild distress from coughing, appears tired. Able to answer all questions. HEENT: Normocephalic, atraumatic. Anicteric. No sinus congestion. No sinus tenderness, no oropharyngeal exudate. Dentition fair. NECK: Supple. LUNGS: Decreased breath sounds at the bases. No expiratory wheezing. No accessory muscle use. HEART: S1, S2. No murmurs. ABDOMEN: Obese, soft. Bowel sounds present, nontender. EXTREMITIES: No edema or cyanosis. DERMATOLOGIC: Warm, dry, no generalized rash. Previous scars well healed of both lower extremities. NEUROLOGIC: Alert, awake, answers a few questions appropriately. PIV looks clean. General: Alert, Oriented X3, Cooperative, No acute distress Heart: Regular rate, Normal S1, Normal S2 Lungs: Clear Abdomen: Normal bowel sounds, Soft, No tenderness, No hepatosplenomegaly, No masses Extremities: No clubbing, No cyanosis, No edema, Normal pulses, No tenderness/swelling Skin: No rashes, No breakdown, No significant lesion Labs Labs: Laboratory Tests Test 05/15/21 12:24 05/15/21 16:47 05/15/21 19:54 05/16/21 08:04 Glucose (Fingerstick) 116 mg/dL (70-99) 239 mg/dL (70-99) 226 mg/dL (70-99) 116 mg/dL (70-99) Review of Systems Review of Systems: Patient acknowledges cough ROS otherwise negative Assessment and Plan Assessmemt and Plan Problems Medical Problems: (1) Sepsis secondary to UTI Status: Acute Acute metabolic encephalopathy UTI Sepsis HTN Acute Asthma exacerbation Cough DM2 Moderate protein calorie malnutrition Blood culture positive Plan ID consulted on case, input appreciated Continue IV fluids Continue IV antibiotics, per ID Continue PRN Nebs Continue SSI Continue anti-hypertensive therapy Continue to trend labs PO intake encouraged Home meds restarted as indicated DVT Prophylaxis Full Code Discharge Disposition pending subspecialist input Comment Review of Relevant I have reviewed the following items keron (where applicable) has been applied. Medications: Current Medications Medications (Trade) Dose Ordered Sig/Fransico Route PRN Reason Start Time Stop Time Status Last Admin Dose Admin Doxycycline Hyclate (Vibra-Tab) 100 mg BID PO 05/15/21 12:00 05/16/21 09:49 Benzonatate (Tessalon Perle) 100 mg [id number] PO 05/15/21 14:00 05/16/21 09:49 Justifications for Admission Other Justification GLADIS PARKER III DO May 16, 2021 11:58
[2021-05-16] MEDS: PIPERACILLIN/TAZOBACTAM 3.375 GM in IV NORMAL SALINE 50ML 50 ML IV SCH ×3 (12:00→23:09)
--- NOTE | 2021-05-16 12:40 | NUR ---
Pt [facility] 344. Dr. Daily ordered 20 unit of Humalog x1 NOW and to start Moderate Intensity SSI. Will continue to monitor.
[2021-05-16] MEDS ORDERED: DEXTROSE 50% 25 GM / 50ML DISP.SYRIN. IV PRN (13:00)
[2021-05-16] MEDS ORDERED: INSULIN LISPRO 300 UNITS/3 ML VIAL. SQ ONE (13:00)
[2021-05-16 15:00] VITALS: BP 119/67
[2021-05-16] MEDS: INSULIN LISPRO 300 UNITS/3 ML VIAL. SQ SCH (17:00)
[2021-05-16] MEDS: ENOXAPARIN 40 MG/0.4 ML SYRINGE. SQ SCH (17:17)
[2021-05-16 19:00] VITALS: BP 118/63
[2021-05-16] MEDS: BENZOCAINE/MENTHOL LOZENGE. PO PRN (20:34)
[2021-05-16] MEDS: PSYLLIUM HUSK (SUGAR FREE) 1 PKT PACKET PO SCH (20:36)
[2021-05-16] MEDS: ASPIRIN CHEWABLE 81 MG TABLET. PO SCH (20:36)
[2021-05-16] MEDS: GABAPENTIN 400 MG CAPSULE. PO SCH (20:37)
[2021-05-16 23:00] VITALS: BP 126/69
[2021-05-17 03:00] VITALS: BP 125/71
[2021-05-17] MEDS: PIPERACILLIN/TAZOBACTAM 3.375 GM in IV NORMAL SALINE 50ML 50 ML IV SCH ×4 (06:11→23:47)
[2021-05-17 07:00] VITALS: BP 118/78
[2021-05-17] MEDS: IPRATRPIUM/ALBUTEROL 0.5/2.5MG 3 ML NEBU. NEB SCH ×4 (07:15→20:26)
[2021-05-17] MEDS: BUDESONIDE 0.5 MG/2 ML NEBU. NEB SCH ×2 (07:15→20:26)
[2021-05-17 07:26] LABS: CALCIUM 9.1 mg/dL (8.5-10.1); GFR 54.7; POTASSIUM 3.8 mmol/L (3.5-5.1)
[2021-05-17 07:39] LABS: BASO % 1 % (0-3); EOS # 0.3 x10^3/uL (0.0-0.7); EOS % 4 % (0-3); HEMATOCRIT 39.9 % (36.0-47.0); LYMPH # 1.9 x10^3/uL (1.0-4.8); LYMPH % 25 % (24-48); MEAN CORPUSCULAR HEMOGLOBIN 30 pg (25-35); MEAN CORPUSCULAR HGB CONC 33 g/dL (31-37); MEAN CORPUSCULAR VOLUME 92 fL (79-100); MONO # 0.8 x10^3/uL (0.0-1.1); MONO % 11 % (0-9); NEUT # 4.5 x10^3/uL (1.8-7.7); NEUT % 59 % (31-73); PLATELET COUNT 180 x10^3/uL (140-400); RED BLOOD COUNT 4.36 x10^6/uL (3.50-5.40); RED CELL DISTRIBUTION WIDTH 13.2 % (11.5-14.5); WHITE BLOOD COUNT 7.5 x10^3/uL (4.0-11.0)
[2021-05-17] MEDS: INSULIN LISPRO 300 UNITS/3 ML VIAL. SQ SCH ×3 (08:00→17:14)
[2021-05-17] MEDS: PANTOPRAZOLE 40 MG TABLET.DR. PO SCH (08:34)
[2021-05-17] MEDS: cycloSPORINE 0.05% OPHTH DROPERETTE. OU SCH ×2 (08:34→20:40)
[2021-05-17] MEDS: POLYETHYLENE GLYCOL 3350 17 GM PACKET. PO SCH (08:34)
[2021-05-17] MEDS: LACTOBACILLUS RHAMNOSUS GG 1 CAPSULE. PO SCH ×2 (08:34→20:40)
[2021-05-17] MEDS: MONTELUKAST SODIUM 10 MG TABLET. PO SCH (08:34)
[2021-05-17] MEDS: DOXYCYCLINE HYCLATE 100 MG TABLET PO SCH ×2 (08:34→20:40)
[2021-05-17] MEDS: CETIRIZINE HCL 10 MG TABLET. PO SCH (08:34)
[2021-05-17] MEDS: GLIMEPIRIDE 2 MG TABLET. PO SCH ×2 (08:35→20:40)
[2021-05-17] MEDS: BENZONATATE 100 MG CAPSULE. PO SCH ×3 (08:35→20:40)
[2021-05-17] MEDS: FUROSEMIDE 20 MG TABLET PO SCH (08:38)
--- NOTE | 2021-05-17 08:40 | PDOC ---
Infectious Disease Note Subjective: Subjective Patient feels about the same Afebrile last 24 hours Continues to have dry cough Denies any chills, nausea, vomiting, diarrhea, abdominal pain, symptoms. Vital Signs: Vital Signs Vital Signs Date Time Temp Pulse Resp B/P (MAP) Pulse Ox O2 Delivery O2 Flow Rate FiO2 05/17/21 07:19 93 Room Air 05/17/21 03:00 98.8 91 16 125/71 (89) 98.8 Physical Exam: PHYSICAL EXAM GENERAL: Alert, oriented x 3 female, cooperative, in mild distress from coughing, appears tired. Able to answer all questions. HEENT: Normocephalic, atraumatic. Anicteric. No sinus congestion. No sinus tenderness, no oropharyngeal exudate. Dentition fair. NECK: Supple. LUNGS: Decreased breath sounds at the bases. No expiratory wheezing. No accessory muscle use. HEART: S1, S2. No murmurs. ABDOMEN: Obese, soft. Bowel sounds present, nontender. EXTREMITIES: No edema or cyanosis. DERMATOLOGIC: Warm, dry, no generalized rash. Previous scars well healed of both lower extremities. NEUROLOGIC: Alert, awake, answers a few questions appropriately. PIV looks clean. Medications: Inpatient Meds: Medications reviewed. Labs: Lab Laboratory Tests Test 05/16/21 12:16 05/16/21 16:56 05/16/21 21:30 05/17/21 06:35 Glucose (Fingerstick) 433 mg/dL (70-99) 80 mg/dL (70-99) 115 mg/dL (70-99) White Blood Count 7.5 x10^3/uL (4.0-11.0) Red Blood Count 4.36 x10^6/uL (3.50-5.40) Hemoglobin 13.0 g/dL (12.0-15.5) Hematocrit 39.9 % (36.0-47.0) Mean Corpuscular Volume 92 fL (79-100) Mean Corpuscular Hemoglobin 30 pg (25-35) Mean Corpuscular Hemoglobin Concent 33 g/dL (31-37) Red Cell Distribution Width 13.2 % (11.5-14.5) Platelet Count 180 x10^3/uL (140-400) Neutrophils (%) (Auto) 59 % (31-73) Lymphocytes (%) (Auto) 25 % (24-48) Monocytes (%) (Auto) 11 % (0-9) Eosinophils (%) (Auto) 4 % (0-3) Basophils (%) (Auto) 1 % (0-3) Neutrophils # (Auto) 4.5 x10^3/uL (1.8-7.7) Lymphocytes # (Auto) 1.9 x10^3/uL (1.0-4.8) Monocytes # (Auto) 0.8 x10^3/uL (0.0-1.1) Eosinophils # (Auto) 0.3 x10^3/uL (0.0-0.7) Basophils # (Auto) 0.0 x10^3/uL (0.0-0.2) Sodium Level 143 mmol/L (136-145) Potassium Level 3.8 mmol/L (3.5-5.1) Chloride Level 108 mmol/L (98-107) Carbon Dioxide Level 27 mmol/L (21-32) Anion Gap 8 (6-14) Blood Urea Nitrogen 18 mg/dL (7-20) Creatinine 1.0 mg/dL (0.6-1.0) Estimated GFR (Cockcroft-Gault) 54.7 Glucose Level 127 mg/dL (70-99) Calcium Level 9.1 mg/dL (8.5-10.1) Test 05/17/21 08:01 Glucose (Fingerstick) 118 mg/dL (70-99) Micro Signed PATIENT: SARA DAMON MACCOUNT: [id number] : 1950 LOCATION: [address] [place] [address] AGE: 70 SEX: F EXAM STATUS: ADM IN ORD. PHYSICIAN: ARVIND MORENO MD REASON: pt with cough chroniic bronchitis, fever LESLIE TO CALL WHEN COMING DOWN PROCEDURE: CT CHEST WO CONTRAST CT chest without contrast dated 05/15/2021. COMPARISON: None. CLINICAL INDICATION: Cough. TECHNIQUE: Contiguous axial imaging the chest performed without the administration of intravenous contrast. One or more of the following individualized dose reduction techniques were utilized for this examination: 1. Automated exposure control 2. Adjustment of the mA and/or kV according to patient size 3. Use of iterative reconstruction technique. FINDINGS: Heart size mildly enlarged. No pericardial effusion. Calcified right paratracheal lymph node. No mediastinal, hilar or axillary lymphadenopathy. Thyroid gland is unremarkable. Scan was performed and extra rotation, limiting evaluation the airways. There is some patchy groundglass density throughout both lungs, likely related to low lung volumes and atelectasis. Suggestion of mild superimposed emphysema. No consolidation or pleural effusion. No pneumothorax. Small noncalcified pulmonary nodule in the right middle lobe on image 29 measures 3 mm, nonspecific. Limited images of the upper abdomen unremarkable. Low-density foci in the liver are unchanged. No significant bony abnormality. Multilevel spondylosis. IMPRESSION: 1. Limited exam. No apparent acute abnormality. Objective: Assessment: 1. Fever, source appears to be possibly respiratory though chest x-ray was negative for consolidation on admission. Covid negative. Status post COVID vaccination X2. Flu screen negative. Respiratory viral panel is not available at this facility. CT chest negative for any gross abnormality. 2. Urinary tract infection present on admission. Urine cultures negative so far. Patient had been on ciprofloxacin a week prior to admission. CT abdomen and pelvis reviewed without any acute abnormality. Urinary incontinence 3. Acute encephalopathy. Improved 4. Leukocytosis. Improved blood cultures negative 5. Chronic obstructive pulmonary disease. 6. Sinus congestion. Seasonal allergies 7. Chronic bronchitis. Plan: Plan of Care Continue Zosyn and doxycycline; was on IV vancomycin Follow-up urine Legionella antigen Check BnP Maintain aspiration cautions Continue supportive care Monitor labs and cultures If patient is able to give sputum please send for Gram stain and cultures Discussed with ARVIND AVALOS MD May 17, 2021 08:40
[2021-05-17] MEDS: BENZOCAINE/MENTHOL LOZENGE. PO PRN ×2 (08:41→12:33)
[2021-05-17 10:01] LABS: BASE EXCESS ABG 1 mmol/L (-3-3); HCO3 ABG 25 mmol/L (21-28); PCO2 ABG 38 mmHg (35-46); PO2 ABG 72 mmHg (65-108); SAT O2 ABG 94 % (92-99)
[2021-05-17 10:03] LABS: FIO2 ABG 21
--- NOTE | 2021-05-17 10:42 | RAD ---
XR CHEST 1V CLINICAL INDICATIONS: Reason: Increased wheezing, coarse lung sounds / Spl. Instructions: / History: COMPARISON: May 12, 2021. Findings: There is a new finding of bilateral perihilar interstitial pulmonary edema or bronchitis. N o lung consolidation or pleural effusion or pneumothorax is seen. The heart size, pulmonary vasculatu re, mediastinum and both redd are stable. IMPRESSION: New finding of bilateral perihilar interstitial pulmonary edema or acute bronchitis. Electronically signed by: Hany Evans MD (05/17/2021 10:40 AM) [id number]
[2021-05-17 11:00] VITALS: BP 114/39
--- NOTE | 2021-05-17 11:27 | PDOC ---
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 Was being treated presumptively for UTI with cipro for the past 5 days. Has been having a fever of about 102*F for the past week and a productive cough.She c/o myalgias and difficulty breathing. Is aware of confusion. No neck pain or nuchal rigidity. EKG sinus tachycardia at 115 bpm, unremarkable intervals, left axis deviation, occasional PVCs without obvious ischemic findings, no ST elevations or TWI WBC 12.6, Hb 14.2, platelets 152, NA 140, K3.9, BUN 13, CR 0.9, glucose 113 lactic acid 1.5, LFTs within normal laboratory limits albumin 2.8, urine with leuk large leukoesterase and blood rapid COVID-19 negative chest radiograph with no acute findings but diffuse interstitial prominence,chronic. Admitted for further care. 05/13: Febrile up to 102 F. She is antibiotic to Zosyn. Still short of breath with some chest discomfort after coughing. Less confused today. COVID-19 PCR returned negative. 05/14: Febrile 102.4 F overnight. Shortness of breath improved slightly. Some abdominal discomfort today. No abnormalities on CT abdomen/pelvis. 05/15: Blood cultures with staph hominis, and urine culture no growth to date. Rapid influenza negative. Afebrile past 24 hours. ID consult due to fevers for 48 hours on initial admit now afebrile abdominal pain is resolved but having some chest pain with coughing. CT chest without contrast ordered. Change van comycin to doxycycline 05/16 Patient seen and examined at bedside Chart reviewed Patient comfortable, NAD Afebrile (98.2) Patient AAOx3, feels more or less unchanged from yesterday. no complaints other than cough IV Abx and IV fluids running at time of exam Discussed case with RN and SW 05/17 Pt seen and examined at bedside Chart reviewed No acute overnight events, pt afebrile (98.8) Pt AAOx3 and in good spirits Pt appears more dyspneic and has audible wheezes more pronounced from yesterday Per OT, pt had fall on L shoulder a few weeks ago and still has pain from it DWRN and SW Vitals/I&O Vitals/I&O: Vital Signs Date Time Temp Pulse Resp B/P (MAP) Pulse Ox O2 Delivery O2 Flow Rate FiO2 05/17/21 08:35 90 118/78 05/17/21 08:00 Room Air 05/17/21 07:19 93 05/17/21 07:00 99.0 16 99.0 I & O 05/16/21 05/16/21 05/17/21 15:00 23:00 07:00 Intake Total 50 ml 200 ml Output Total 600 ml 254 ml Balance -600 ml -204 ml 200 ml Physical Exam Physical Exam: GENERAL: Alert, oriented x 3 female, cooperative, in mild distress from coughing, appears tired. Able to answer all questions. HEENT: Normocephalic, atraumatic. Anicteric. No sinus congestion. No sinus tenderness, no oropharyngeal exudate. Dentition fair. NECK: Supple. LUNGS: Decreased breath sounds at the bases. Audible expiratory wheezing. No accessory muscle use. HEART: S1, S2. No murmurs. ABDOMEN: Obese, soft. Bowel sounds present, nontender. EXTREMITIES: No edema or cyanosis. DERMATOLOGIC: Warm, dry, no generalized rash. Previous scars well healed of both lower extremities. NEUROLOGIC: AAOx3. PIV looks clean. General: Alert, Oriented X3, Cooperative, No acute distress Heart: Regular rate, Normal S1, Normal S2 Lungs: Wheezing Abdomen: Normal bowel sounds, Soft, No tenderness, No hepatosplenomegaly, No ma sses Extremities: No clubbing, No cyanosis, No edema, Normal pulses, No tenderness/swelling Skin: No rashes, No breakdown, No significant lesion Labs Labs: Laboratory Tests Test 05/16/21 12:16 05/16/21 16:56 05/16/21 21:30 05/17/21 06:35 Glucose (Fingerstick) 433 mg/dL (70-99) 80 mg/dL (70-99) 115 mg/dL (70-99) White Blood Count 7.5 x10^3/uL (4.0-11.0) Red Blood Count 4.36 x10^6/uL (3.50-5.40) Hemoglobin 13.0 g/dL (12.0-15.5) Hematocrit 39.9 % (36.0-47.0) Mean Corpuscular Volume 92 fL (79-100) Mean Corpuscular Hemoglobin 30 pg (25-35) Mean Corpuscular Hemoglobin Concent 33 g/dL (31-37) Red Cell Distribution Width 13.2 % (11.5-14.5) Platelet Count 180 x10^3/uL (140-400) Neutrophils (%) (Auto) 59 % (31-73) Lymphocytes (%) (Auto) 25 % (24-48) Monocytes (%) (Auto) 11 % (0-9) Eosinophils (%) (Auto) 4 % (0-3) Basophils (%) (Auto) 1 % (0-3) Neutrophils # (Auto) 4.5 x10^3/uL (1.8-7.7) Lymphocytes # (Auto) 1.9 x10^3/uL (1.0-4.8) Monocytes # (Auto) 0.8 x10^3/uL (0.0-1.1) Eosinophils # (Auto) 0.3 x10^3/uL (0.0-0.7) Basophils # (Auto) 0.0 x10^3/uL (0.0-0.2) Sodium Level 143 mmol/L (136-145) Potassium Level 3.8 mmol/L (3.5-5.1) Chloride Level 108 mmol/L (98-107) Carbon Dioxide Level 27 mmol/L (21-32) Anion Gap 8 (6-14) Blood Urea Nitrogen 18 mg/dL (7-20) Creatinine 1.0 mg/dL (0.6-1.0) Estimated GFR (Cockcroft-Gault) 54.7 Glucose Level 127 mg/dL (70-99) Calcium Level 9.1 mg/dL (8.5-10.1) Test 05/17/21 08:01 05/17/21 09:55 Glucose (Fingerstick) 118 mg/dL (70-99) O2 Saturation 94 % (92-99) Arterial Blood pH 7.43 (7.35-7.45) Arterial Blood pCO2 at Patient Temp 38 mmHg (35-46) Arterial Blood pO2 at Patient Temp 72 mmHg (65-108) Arterial Blood HCO3 25 mmol/L (21-28) Arterial Blood Base Excess 1 mmol/L (-3-3) FiO2 21 Review of Systems Review of Systems: Pt acknowledges cough, wheezing ROS otherwise negative Assessment and Plan Assessmemt and Plan Problems Medical Problems: (1) Sepsis secondary to UTI Status: Acute Acute metabolic encephalopathy UTI Sepsis HTN Acute Asthma exacerbation Cough DM2 Moderate protein calorie malnutrition Blood culture positive Plan ID consulted on case, input appreciated IV Lasix ordered d/t CXR showing pulm edema Continue IV antibiotics, per ID Changed PRN Nebs and steroids to scheduled ABG ordered CXR ordered L. Shoulder Xray ordered Continue SSI Continue anti-hypertensive therapy Continue to trend labs PO intake encouraged Home meds restarted as indicated DVT Prophylaxis Full Code Discharge Disposition pending subspecialist input Comment Review of Relevant I have reviewed the following items keron (where applicable) has been applied. Medications: Current Medications Medications (Trade) Dose Ordered Sig/Fransico Route PRN Reason Start Time Stop Time Status Last Admin Dose Admin Insulin Human Lispro (HumaLOG) 20 units 1X ONCE SQ 05/16/21 13:00 05/16/21 13:01 DC 05/16/21 13:19 Justifications for Admission Other Justification GLADIS PARKER III DO May 17, 2021 11:26
[2021-05-17] MEDS ORDERED: FUROSEMIDE 40 MG/4 ML VIAL. IVP ONE (12:00)
[2021-05-17 15:00] VITALS: BP 150/60
[2021-05-17] MEDS: guaiFENesin DM 200MG/20MG 10 ML SYRUP PO PRN (16:32)
--- NOTE | 2021-05-17 16:51 | RAD ---
EXAM: XR SHOULDER_LEFT 2+ VIEWS 05/17/2021 1:21 PM CLINICAL INDICATION: Recent fall, pain and limited range of motion COMPARISON: None TECHNIQUE: 3 views of the left shoulder FINDINGS: No acute fracture. Alignment is normal. There is mild acromioclavicular degenerative joint disease. Glenohumeral joint is maintained. Soft tissue unremarkable. Prominent interstitial opacitie s in the lungs, as seen on radiograph the same day. IMPRESSION: No acute osseous abnormality of the left shoulder. Electronically signed by: Crystal Louise MD (05/17/2021 4:49 PM) [id number]
[2021-05-17] MEDS: ENOXAPARIN 40 MG/0.4 ML SYRINGE. SQ SCH (17:09)
[2021-05-17 19:00] VITALS: BP 132/77
[2021-05-17] MEDS: GABAPENTIN 400 MG CAPSULE. PO SCH (20:40)
[2021-05-17] MEDS: PSYLLIUM HUSK (SUGAR FREE) 1 PKT PACKET PO SCH (20:40)
[2021-05-17] MEDS: ASPIRIN CHEWABLE 81 MG TABLET. PO SCH (20:40)
[2021-05-17 23:00] VITALS: BP 139/73
[2021-05-18 03:00] VITALS: BP 123/72
[2021-05-18 04:43] LABS: BASO # 0.1 x10^3/uL (0.0-0.2); BASO % 1 % (0-3); EOS # 0.3 x10^3/uL (0.0-0.7); EOS % 3 % (0-3); HEMATOCRIT 40.7 % (36.0-47.0); HEMOGLOBIN 13.2 g/dL (12.0-15.5); LYMPH # 1.9 x10^3/uL (1.0-4.8); LYMPH % 23 % (24-48); MEAN CORPUSCULAR HEMOGLOBIN 30 pg (25-35); MEAN CORPUSCULAR HGB CONC 33 g/dL (31-37); MEAN CORPUSCULAR VOLUME 91 fL (79-100); MONO # 0.9 x10^3/uL (0.0-1.1); MONO % 11 % (0-9); NEUT % 62 % (31-73); PLATELET COUNT 182 x10^3/uL (140-400); RED BLOOD COUNT 4.45 x10^6/uL (3.50-5.40); RED CELL DISTRIBUTION WIDTH 13.3 % (11.5-14.5); WHITE BLOOD COUNT 8.2 x10^3/uL (4.0-11.0)
[2021-05-18 05:14] LABS: CALCIUM 9.1 mg/dL (8.5-10.1); CREATININE 0.9 mg/dL (0.6-1.0); GFR 61.7; POTASSIUM 3.5 mmol/L (3.5-5.1)
[2021-05-18] MEDS: PIPERACILLIN/TAZOBACTAM 3.375 GM in IV NORMAL SALINE 50ML 50 ML IV SCH (05:25)
[2021-05-18 07:15] VITALS: BP 128/75
[2021-05-18] MEDS: IPRATRPIUM/ALBUTEROL 0.5/2.5MG 3 ML NEBU. NEB SCH ×4 (07:22→20:00)
[2021-05-18] MEDS: BUDESONIDE 0.5 MG/2 ML NEBU. NEB SCH ×2 (07:22→20:00)
[2021-05-18] MEDS: INSULIN LISPRO 300 UNITS/3 ML VIAL. SQ SCH ×3 (08:00→17:47)
[2021-05-18] MEDS: guaiFENesin DM 200MG/20MG 10 ML SYRUP PO PRN (08:06)
[2021-05-18] MEDS: cycloSPORINE 0.05% OPHTH DROPERETTE. OU SCH ×2 (08:07→21:00)
[2021-05-18] MEDS: PANTOPRAZOLE 40 MG TABLET.DR. PO SCH (08:08)
[2021-05-18] MEDS: LACTOBACILLUS RHAMNOSUS GG 1 CAPSULE. PO SCH ×2 (08:09→20:58)
[2021-05-18] MEDS: POLYETHYLENE GLYCOL 3350 17 GM PACKET. PO SCH (08:09)
[2021-05-18] MEDS: DOXYCYCLINE HYCLATE 100 MG TABLET PO SCH ×2 (08:10→20:59)
[2021-05-18] MEDS: GLIMEPIRIDE 2 MG TABLET. PO SCH ×2 (08:10→20:59)
[2021-05-18] MEDS: BENZONATATE 100 MG CAPSULE. PO SCH ×3 (08:10→20:59)
[2021-05-18] MEDS: CETIRIZINE HCL 10 MG TABLET. PO SCH (08:11)
[2021-05-18] MEDS: MONTELUKAST SODIUM 10 MG TABLET. PO SCH (08:11)
--- NOTE | 2021-05-18 08:27 | PDOC ---
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 Was being treated presumptively for UTI with cipro for the past 5 days. Has been having a fever of about 102*F for the past week and a productive cough.She c/o myalgias and difficulty breathing. Is aware of confusion. No neck pain or nuchal rigidity. EKG sinus tachycardia at 115 bpm, unremarkable intervals, left axis deviation, occasional PVCs without obvious ischemic findings, no ST elevations or TWI WBC 12.6, Hb 14.2, platelets 152, NA 140, K3.9, BUN 13, CR 0.9, glucose 113 lactic acid 1.5, LFTs within normal laboratory limits albumin 2.8, urine with leuk large leukoesterase and blood rapid COVID-19 negative chest radiograph with no acute findings but diffuse interstitial prominence,chronic. Admitted for further care. 05/13: Febrile up to 102 F. She is antibiotic to Zosyn. Still short of breath with some chest discomfort after coughing. Less confused today. COVID-19 PCR returned negative. 05/14: Febrile 102.4 F overnight. Shortness of breath improved slightly. Some abdominal discomfort today. No abnormalities on CT abdomen/pelvis. 05/15: Blood cultures with staph hominis, and urine culture no growth to date. Rapid influenza negative. Afebrile past 24 hours. ID consult due to fevers for 48 hours on initial admit now afebrile abdominal pain is resolved but having some chest pain with coughing. CT chest without contrast ordered. Change van comycin to doxycycline 05/16 Patient seen and examined at bedside Chart reviewed Patient comfortable, NAD Afebrile (98.2) Patient AAOx3, feels more or less unchanged from yesterday. no complaints other than cough IV Abx and IV fluids running at time of exam Discussed case with RN and SW 05/17 Pt seen and examined at bedside Chart reviewed No acute overnight events, pt afebrile (98.8) Pt AAOx3 and in good spirits Pt appears more dyspneic and has audible wheezes more pronounced from yesterday Per OT, pt had fall on L shoulder a few weeks ago and still has pain from it Tra 05/18: Pt was seen, examined, and their chart was reviewed. Pt is resting and currently on Abx,, and states that she feels a little better than yesterday but has a slight cough Shoulder imaging revealed no abnormalities. Discussed with RN and MADHURI. Vitals/I&O Vitals/I&O: Vital Signs Date Time Temp Pulse Resp B/P (MAP) Pulse Ox O2 Delivery O2 Flow Rate FiO2 05/18/21 08:10 90 128/75 05/18/21 07:23 95 Room Air 05/18/21 07:15 99.2 20 99.2 I & O 05/17/21 05/17/21 05/18/21 15:00 23:00 07:00 Intake Total 460 ml 250 ml 400 ml Balance 460 ml 250 ml 400 ml Physical Exam Physical Exam: GENERAL: Alert, oriented x 3 female, cooperative, in mild distress from coughing, appears tired. Able to answer all questions. HEENT: Normocephalic, atraumatic. Anicteric. No sinus congestion. No sinus tenderness, no oropharyngeal exudate. Dentition fair. NECK: Supple. LUNGS: Very slight wheezing but much improved from yesterday HEART: S1, S2. No murmurs. ABDOMEN: Obese, soft. Bowel sounds present, nontender. EXTREMITIES: No edema or cyanosis. DERMATOLOGIC: Warm, dry, no generalized rash. Previous scars well healed of both lower extremities. NEUROLOGIC: AAOx3. PIV looks clean. General: Alert, Oriented X3, Cooperative, No acute distress Heart: Regular rate, Normal S1, Normal S2 Lungs: Other (Slight wheezing but very little much improved from yesterday this morning) Abdomen: Normal bowel sounds, Soft, No tenderness, No hepatosplenomegaly, No masses Extremities: No clubbing, No cyanosis, No edema, Normal pulses, No tenderness/swelling Skin: No rashes, No breakdown, No significant lesion Labs Labs: Laboratory Tests Test 05/17/21 09:55 05/17/21 11:36 05/18/21 03:05 05/18/21 03:14 O2 Saturation 94 % (92-99) Arterial Blood pH 7.43 (7.35-7.45) Arterial Blood pCO2 at Patient Temp 38 mmHg (35-46) Arterial Blood pO2 at Patient Temp 72 mmHg (65-108) Arterial Blood HCO3 25 mmol/L (21-28) Arterial Blood Base Excess 1 mmol/L (-3-3) FiO2 21 Glucose (Fingerstick) 283 mg/dL (70-99) 124 mg/dL (70-99) White Blood Count 8.2 x10^3/uL (4.0-11.0) Red Blood Count 4.45 x10^6/uL (3.50-5.40) Hemoglobin 13.2 g/dL (12.0-15.5) Hematocrit 40.7 % (36.0-47.0) Mean Corpuscular Volume 91 fL (79-100) Mean Corpuscular Hemoglobin 30 pg (25-35) Mean Corpuscular Hemoglobin Concent 33 g/dL (31-37) Red Cell Distribution Width 13.3 % (11.5-14.5) Platelet Count 182 x10^3/uL (140-400) Neutrophils (%) (Auto) 62 % (31-73) Lymphocytes (%) (Auto) 23 % (24-48) Monocytes (%) (Auto) 11 % (0-9) Eosinophils (%) (Auto) 3 % (0-3) Basophils (%) (Auto) 1 % (0-3) Neutrophils # (Auto) 5.0 x10^3/uL (1.8-7.7) Lymphocytes # (Auto) 1.9 x10^3/uL (1.0-4.8) Monocytes # (Auto) 0.9 x10^3/uL (0.0-1.1) Eosinophils # (Auto) 0.3 x10^3/uL (0.0-0.7) Basophils # (Auto) 0.1 x10^3/uL (0.0-0.2) Sodium Level 142 mmol/L (136-145) Potassium Level 3.5 mmol/L (3.5-5.1) Chloride Level 105 mmol/L (98-107) Carbon Dioxide Level 28 mmol/L (21-32) Anion Gap 9 (6-14) Blood Urea Nitrogen 17 mg/dL (7-20) Creatinine 0.9 mg/dL (0.6-1.0) Estimated GFR (Cockcroft-Gault) 61.7 Glucose Level 122 mg/dL (70-99) Calcium Level 9.1 mg/dL (8.5-10.1) Test 05/18/21 07:18 Glucose (Fingerstick) 137 mg/dL (70-99) Review of Systems Review of Systems: ROS Negative Assessment and Plan Assessmemt and Plan Problems Medical Problems: (1) Sepsis secondary to UTI Status: Acute Acute metabolic encephalopathy UTI Sepsis HTN Acute Asthma exacerbation Cough DM2 Moderate protein calorie malnutrition Blood culture positive Plan: - Continue IV antibiotics and I'm ordering one more dose of IV Lasix - Continue scheduled Nebs and steroids - L Shoulder X-Ray was negative - Continue supportive care - Continue aspiration caution - Continue SSI - Continue anti-hypertensive therapy - Continue to trend labs - PO intake encouraged - PTOT - Home meds restarted as indicated - DVT Prophylaxis Appreciate subspecialist input Might need detention? Full Code Discharge Disposition pending subspecialist input Comment Review of Relevant I have reviewed the following items keron (where applicable) has been applied. Medications: Current Medications Medications (Trade) Dose Ordered Sig/Fransico Route PRN Reason Start Time Stop Time Status Last Admin Dose Admin Furosemide (Lasix) 40 mg 1X ONCE IVP 05/17/21 12:00 05/17/21 12:01 DC 05/17/21 12:08 Justifications for Admission Other Justification GLADIS PARKER III DO May 18, 2021 08:27
[2021-05-18] MEDS ORDERED: FUROSEMIDE 40 MG/4 ML VIAL. IVP ONE (09:00)
--- NOTE | 2021-05-18 09:00 | PDOC ---
Infectious Disease Note Subjective: Subjective Patient continues to have dry cough On room air Remains afebrile urine Legionella antigen negative Vital Signs: Vital Signs Vital Signs Date Time Temp Pulse Resp B/P (MAP) Pulse Ox O2 Delivery O2 Flow Rate FiO2 05/18/21 08:10 90 128/75 05/18/21 07:23 95 Room Air 05/18/21 07:15 99.2 20 99.2 Physical Exam: PHYSICAL EXAM GENERAL: Alert, oriented x 3 female, cooperative HEENT: Normocephalic, atraumatic. Anicteric. No sinus congestion. No sinus tenderness, no oropharyngeal exudate. Dentition fair. NECK: Supple. LUNGS: Decreased breath sounds at the bases. No accessory muscle use or wheezing HEART: S1, S2. No murmurs. ABDOMEN: Obese, soft. Bowel sounds present, nontender. EXTREMITIES: No edema or cyanosis. DERMATOLOGIC: Warm, dry, no generalized rash. Previous scars well healed of both lower extremities. NEUROLOGIC: AAOx3. PIV looks clean. Medications: Inpatient Meds: Medications reviewed. Labs: Lab Laboratory Tests Test 05/17/21 09:55 05/17/21 11:36 05/18/21 03:05 05/18/21 03:14 O2 Saturation 94 % (92-99) Arterial Blood pH 7.43 (7.35-7.45) Arterial Blood pCO2 at Patient Temp 38 mmHg (35-46) Arterial Blood pO2 at Patient Temp 72 mmHg (65-108) Arterial Blood HCO3 25 mmol/L (21-28) Arterial Blood Base Excess 1 mmol/L (-3-3) FiO2 21 Glucose (Fingerstick) 283 mg/dL (70-99) 124 mg/dL (70-99) White Blood Count 8.2 x10^3/uL (4.0-11.0) Red Blood Count 4.45 x10^6/uL (3.50-5.40) Hemoglobin 13.2 g/dL (12.0-15.5) Hematocrit 40.7 % (36.0-47.0) Mean Corpuscular Volume 91 fL (79-100) Mean Corpuscular Hemoglobin 30 pg (25-35) Mean Corpuscular Hemoglobin Concent 33 g/dL (31-37) Red Cell Distribution Width 13.3 % (11.5-14.5) Platelet Count 182 x10^3/uL (140-400) Neutrophils (%) (Auto) 62 % (31-73) Lymphocytes (%) (Auto) 23 % (24-48) Monocytes (%) (Auto) 11 % (0-9) Eosinophils (%) (Auto) 3 % (0-3) Basophils (%) (Auto) 1 % (0-3) Neutrophils # (Auto) 5.0 x10^3/uL (1.8-7.7) Lymphocytes # (Auto) 1.9 x10^3/uL (1.0-4.8) Monocytes # (Auto) 0.9 x10^3/uL (0.0-1.1) Eosinophils # (Auto) 0.3 x10^3/uL (0.0-0.7) Basophils # (Auto) 0.1 x10^3/uL (0.0-0.2) Sodium Level 142 mmol/L (136-145) Potassium Level 3.5 mmol/L (3.5-5.1) Chloride Level 105 mmol/L (98-107) Carbon Dioxide Level 28 mmol/L (21-32) Anion Gap 9 (6-14) Blood Urea Nitrogen 17 mg/dL (7-20) Creatinine 0.9 mg/dL (0.6-1.0) Estimated GFR (Cockcroft-Gault) 61.7 Glucose Level 122 mg/dL (70-99) Calcium Level 9.1 mg/dL (8.5-10.1) Test 05/18/21 07:18 Glucose (Fingerstick) 137 mg/dL (70-99) Micro Signed PATIENT: SARA DAMON MACCOUNT: [id number] : 1950 LOCATION: [address] [place] [address] AGE: 70 SEX: F EXAM STATUS: ADM IN ORD. PHYSICIAN: ARVIND MORENO MD REASON: pt with cough chroniic bronchitis, fever LESLIE TO CALL WHEN COMING DOWN PROCEDURE: CT CHEST WO CONTRAST CT chest without contrast dated 05/15/2021. COMPARISON: None. CLINICAL INDICATION: Cough. TECHNIQUE: Contiguous axial imaging the chest performed without the administration of intravenous contrast. One or more of the following individualized dose reduction techniques were uti lized for this examination: 1. Automated exposure control 2. Adjustment of the mA and/or kV according to patient size 3. Use of iterative reconstruction technique. FINDINGS: Heart size mildly enlarged. No pericardial effusion. Calcified right parat raul lymph node. No mediastinal, hilar or axillary lymphadenopathy. Thyroid gland is unremarkable. Scan was performed and extra rotation, limiting evaluation the airways. There is some patchy groundglass density throughout both lungs, likely related to low lung volumes and atelectasis. Suggestion of mild superimposed emphysema. No consolidation or pleural effusion. No pneumothorax. Small noncalcified pulmonary nodule in the right middle lobe on image 29 measures 3 mm, nonspecific. Limited images of the upper abdomen unremarkable. Low-density foci in the liver are unchanged. No significant bony abnormality. Multilevel spondylosis. IMPRESSION: 1. Limited exam. No apparent acute abnormality. Objective: Assessment: 1. Fever, source appears to be possibly respiratory though chest x-ray was negative for consolidation on admission. Covid negative. Status post COVID vaccination X2. Flu screen negative. Respiratory viral panel is not available at this facility. CT chest negative for any gross abnormality. 2. Urinary tract infection present on admission. Urine cultures negative so far. Patient had been on ciprofloxacin a week prior to admission. CT abdomen and pelvis reviewed without any acute abnormality. Urinary incontinence 3. Acute encephalopathy. Improved 4. Leukocytosis. Improved blood cultures negative 5. Chronic obstructive pulmonary disease. 6. Sinus congestion. Seasonal allergies 7. Chronic bronchitis. Plan: Plan of Care DC Ziosyn, augmentin and doxycycline for 7 days Maintain aspiration cautions Continue supportive care Discussed with Jatin Orourke at bedside Discussed with ARVIND AVALOS MD May 18, 2021 09:00
[2021-05-18 11:09] VITALS: BP 120/39
[2021-05-18] MEDS ORDERED: POTASSIUM CHLORIDE 20 MEQ TABLET.ER. PO ONE (12:00)
[2021-05-18 14:57] VITALS: BP 112/65
[2021-05-18] MEDS: ENOXAPARIN 40 MG/0.4 ML SYRINGE. SQ SCH (17:53)
[2021-05-18 19:00] VITALS: BP 109/52
[2021-05-18] MEDS: AMOXICILLIN/K CLAV 875/125MG TABLET. PO SCH (20:58)
[2021-05-18] MEDS: ASPIRIN CHEWABLE 81 MG TABLET. PO SCH (20:59)
[2021-05-18] MEDS: GABAPENTIN 400 MG CAPSULE. PO SCH (20:59)
[2021-05-18] MEDS: PSYLLIUM HUSK (SUGAR FREE) 1 PKT PACKET PO SCH (21:00)
[2021-05-18 22:52] VITALS: BP 128/71
[2021-05-19] VITALS (7 sets, daily range): BP systolic 73–167; BP diastolic 27–80
[2021-05-19] MEDS: PANTOPRAZOLE 40 MG TABLET.DR. PO SCH (06:35)
[2021-05-19 07:31] LABS: BASO # 0.1 x10^3/uL (0.0-0.2); BASO % 1 % (0-3); EOS # 0.2 x10^3/uL (0.0-0.7); EOS % 2 % (0-3); HEMATOCRIT 41.1 % (36.0-47.0); HEMOGLOBIN 13.5 g/dL (12.0-15.5); LYMPH # 1.8 x10^3/uL (1.0-4.8); LYMPH % 23 % (24-48); MEAN CORPUSCULAR HEMOGLOBIN 30 pg (25-35); MEAN CORPUSCULAR HGB CONC 33 g/dL (31-37); MEAN CORPUSCULAR VOLUME 92 fL (79-100); MONO # 0.9 x10^3/uL (0.0-1.1); MONO % 11 % (0-9); NEUT # 4.9 x10^3/uL (1.8-7.7); NEUT % 63 % (31-73); PLATELET COUNT 215 x10^3/uL (140-400); RED BLOOD COUNT 4.49 x10^6/uL (3.50-5.40); RED CELL DISTRIBUTION WIDTH 13.3 % (11.5-14.5); WHITE BLOOD COUNT 7.8 x10^3/uL (4.0-11.0)
[2021-05-19] MEDS: IPRATRPIUM/ALBUTEROL 0.5/2.5MG 3 ML NEBU. NEB SCH ×4 (07:37→20:15)
[2021-05-19] MEDS: BUDESONIDE 0.5 MG/2 ML NEBU. NEB SCH ×2 (07:38→20:15)
[2021-05-19 08:27] LABS: CALCIUM 9.6 mg/dL (8.5-10.1); CREATININE 0.9 mg/dL (0.6-1.0); GFR 61.7; POTASSIUM 3.9 mmol/L (3.5-5.1)
[2021-05-19] MEDS: cycloSPORINE 0.05% OPHTH DROPERETTE. OU SCH ×2 (08:38→21:05)
[2021-05-19] MEDS: POLYETHYLENE GLYCOL 3350 17 GM PACKET. PO SCH (08:39)
[2021-05-19] MEDS: AMOXICILLIN/K CLAV 875/125MG TABLET. PO SCH ×2 (08:40→21:05)
[2021-05-19] MEDS: CETIRIZINE HCL 10 MG TABLET. PO SCH (08:40)
[2021-05-19] MEDS: BENZOCAINE/MENTHOL LOZENGE. PO PRN ×2 (08:40→12:51)
[2021-05-19] MEDS: BENZONATATE 100 MG CAPSULE. PO SCH ×3 (08:40→21:05)
[2021-05-19] MEDS: guaiFENesin DM 200MG/20MG 10 ML SYRUP PO PRN ×2 (08:41→16:00)
[2021-05-19] MEDS: LACTOBACILLUS RHAMNOSUS GG 1 CAPSULE. PO SCH ×2 (08:41→21:05)
[2021-05-19] MEDS: FUROSEMIDE 20 MG TABLET PO SCH (08:41)
[2021-05-19] MEDS: GLIMEPIRIDE 2 MG TABLET. PO SCH ×2 (08:42→21:05)
[2021-05-19] MEDS: MONTELUKAST SODIUM 10 MG TABLET. PO SCH (08:42)
[2021-05-19] MEDS: DOXYCYCLINE HYCLATE 100 MG TABLET PO SCH ×2 (08:42→21:05)
[2021-05-19] MEDS: INSULIN LISPRO 300 UNITS/3 ML VIAL. SQ SCH ×3 (08:48→17:40)
--- NOTE | 2021-05-19 09:15 | PDOC ---
Infectious Disease Note Subjective: Subjective Patient continues to have dry cough,improved after lasix On room air Remains afebrile Vital Signs: Vital Signs Vital Signs Date Time Temp Pulse Resp B/P (MAP) Pulse Ox O2 Delivery O2 Flow Rate FiO2 05/19/21 08:43 91 167/80 05/19/21 07:43 94 Room Air 05/19/21 07:00 98.1 18 98.1 Physical Exam: PHYSICAL EXAM GENERAL: Alert, oriented x 3 female, cooperative, in mild distress from coughing, appears tired. Able to answer all questions. HEENT: Normocephalic, atraumatic. Anicteric. No sinus congestion. No sinus tenderness, no oropharyngeal exudate. Dentition fair. NECK: Supple. LUNGS: Very slight wheezing but much improved from yesterday HEART: S1, S2. No murmurs. ABDOMEN: Obese, soft. Bowel sounds present, nontender. EXTREMITIES: No edema or cyanosis. DERMATOLOGIC: Warm, dry, no generalized rash. Previous scars well healed of both lower extremities. NEUROLOGIC: AAOx3. PIV looks clean. Medications: Inpatient Meds: Medications reviewed. Labs: Lab Laboratory Tests Test 05/18/21 12:13 05/18/21 16:48 05/18/21 19:01 05/19/21 06:30 Glucose (Fingerstick) 198 mg/dL (70-99) 269 mg/dL (70-99) 269 mg/dL (70-99) White Blood Count 7.8 x10^3/uL (4.0-11.0) Red Blood Count 4.49 x10^6/uL (3.50-5.40) Hemoglobin 13.5 g/dL (12.0-15.5) Hematocrit 41.1 % (36.0-47.0) Mean Corpuscular Volume 92 fL (79-100) Mean Corpuscular Hemoglobin 30 pg (25-35) Mean Corpuscular Hemoglobin Concent 33 g/dL (31-37) Red Cell Distribution Width 13.3 % (11.5-14.5) Platelet Count 215 x10^3/uL (140-400) Neutrophils (%) (Auto) 63 % (31-73) Lymphocytes (%) (Auto) 23 % (24-48) Monocytes (%) (Auto) 11 % (0-9) Eosinophils (%) (Auto) 2 % (0-3) Basophils (%) (Auto) 1 % (0-3) Neutrophils # (Auto) 4.9 x10^3/uL (1.8-7.7) Lymphocytes # (Auto) 1.8 x10^3/uL (1.0-4.8) Monocytes # (Auto) 0.9 x10^3/uL (0.0-1.1) Eosinophils # (Auto) 0.2 x10^3/uL (0.0-0.7) Basophils # (Auto) 0.1 x10^3/uL (0.0-0.2) Sodium Level 143 mmol/L (136-145) Potassium Level 3.9 mmol/L (3.5-5.1) Chloride Level 105 mmol/L (98-107) Carbon Dioxide Level 27 mmol/L (21-32) Anion Gap 11 (6-14) Blood Urea Nitrogen 20 mg/dL (7-20) Creatinine 0.9 mg/dL (0.6-1.0) Estimated GFR (Cockcroft-Gault) 61.7 Glucose Level 132 mg/dL (70-99) Calcium Level 9.6 mg/dL (8.5-10.1) Test 05/19/21 07:52 Glucose (Fingerstick) 157 mg/dL (70-99) Micro Signed PATIENT: SARA DAMONCOUNT: [id number] : 1950 LOCATION: [address] [place] [address] AGE: 70 SEX: F EXAM STATUS: ADM IN ORD. PHYSICIAN: ARVIND MORENO MD REASON: pt with cough chroniic bronchitis, fever LESLIE TO CALL WHEN COMING DOWN PROCEDURE: CT CHEST WO CONTRAST CT chest without contrast dated 05/15/2021. COMPARISON: None. CLINICAL INDICATION: Cough. TECHNIQUE: Contiguous axial imaging the chest performed without the administration of intravenous contrast. One or more of the following individualized dose reduction techniques were utilized for this examination: 1. Automated exposure control 2. Adjustment of the mA and/or kV according to patient size 3. Use of iterative reconstruction technique. FINDINGS: Heart size mildly enlarged. No pericardial effusion. Calcified right paratracheal lymph node. No mediastinal, hilar or axillary lymphadenopathy. Thyroid gland is unremarkable. Scan was performed and extra rotation, limiting evaluation the airways. There is some patchy groundglass density throughout both lungs, likely related to low lung volumes and atelectasis. Suggestion of mild superimposed emphysema. No consolidation or pleural effusion. No pneumothorax. Small noncalcified pulmonary nodule in the right middle lobe on image 29 measures 3 mm, nonspecific. Limited images of the upper abdomen unremarkable. Low-density foci in the liver are unchanged. No significant bony abnormality. Multilevel spondylosis. IMPRESSION: 1. Limited exam. No apparent acute abnormality. Objective: Assessment: 1. Fever, source appears to be possibly respiratory though chest x-ray was negative for consolidation on admission. Covid negative. Status post COVID vaccination X2. Flu screen negative. Respiratory viral panel is not available at this facility. CT chest negative for any gross abnormality. Legionella ag neg 2. Urinary tract infection present on admission. Urine cultures negative far. Patient had been on ciprofloxacin a week prior to admission. CT abdomen and pelvis reviewed without any acute abnormality. Urinary incontinence 3. Acute encephalopathy. Improved 4. Leukocytosis. Improved blood cultures negative 5. Chronic obstructive pulmonary disease. 6. Sinus congestion. Seasonal allergies 7. Chronic bronchitis. Plan: Plan of Care Augmentin and doxycycline for 5 days Maintain aspiration cautions Continue supportive care will sign off Discussed with ARVIND AVALOS MD May 19, 2021 09:15
--- NOTE | 2021-05-19 11:26 | PDOC ---
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 Was being treated presumptively for UTI with cipro for the past 5 days. Has been having a fever of about 102*F for the past week and a productive cough.She c/o myalgias and difficulty breathing. Is aware of confusion. No neck pain or nuchal rigidity. EKG sinus tachycardia at 115 bpm, unremarkable intervals, left axis deviation, occasional PVCs without obvious ischemic findings, no ST elevations or TWI WBC 12.6, Hb 14.2, platelets 152, NA 140, K3.9, BUN 13, CR 0.9, glucose 113 lactic acid 1.5, LFTs within normal laboratory limits albumin 2.8, urine with leuk large leukoesterase and blood rapid COVID-19 negative chest radiograph with no acute findings but diffuse interstitial prominence,chronic. Admitted for further care. 05/13: Febrile up to 102 F. She is antibiotic to Zosyn. Still short of breath with some chest discomfort after coughing. Less confused today. COVID-19 PCR returned negative. 05/14: Febrile 102.4 F overnight. Shortness of breath improved slightly. Some abdominal discomfort today. No abnormalities on CT abdomen/pelvis. 05/15: Blood cultures with staph hominis, and urine culture no growth to date. Rapid influenza negative. Afebrile past 24 hours. ID consult due to fevers for 48 hours on initial admit now afebrile abdominal pain is resolved but having some chest pain with coughing. CT chest without contrast ordered. Change van comycin to doxycycline 05/16 Patient seen and examined at bedside Chart reviewed Patient comfortable, NAD Afebrile (98.2) Patient AAOx3, feels more or less unchanged from yesterday. no complaints other than cough IV Abx and IV fluids running at time of exam Discussed case with RN and SW 05/17 Pt seen and examined at bedside Chart reviewed No acute overnight events, pt afebrile (98.8) Pt AAOx3 and in good spirits Pt appears more dyspneic and has audible wheezes more pronounced from yesterday Per OT, pt had fall on L shoulder a few weeks ago and still has pain from it Tra 05/18: Pt was seen, examined, and their chart was reviewed. Pt is resting and currently on Abx,, and states that she feels a little better than yesterday but has a slight cough Shoulder imaging revealed no abnormalities. Discussed with RN and MADHURI. 05/19: Pt was seen, examined, and their chart was reviewed. Pt is resting in bed and continues to have coughing, but the Lasix has been effective in clearing her lungs. Awaiting probable discharge tomorrow if Pt is stable. Discussed with RN and MADHURI. Vitals/I&O Vitals/I&O: Vital Signs Date Time Temp Pulse Resp B/P (MAP) Pulse Ox O2 Delivery O2 Flow Rate FiO2 05/19/21 08:43 91 167/80 05/19/21 07:43 94 Room Air 05/19/21 07:00 98.1 18 98.1 I & O 05/18/21 05/18/21 05/19/21 15:00 23:00 07:00 Intake Total 360 ml 720 ml Output Total 700 ml Balance 360 ml 720 ml -700 ml Physical Exam Physical Exam: GENERAL: Alert, oriented x 3 female, cooperative, in mild distress from coughing, appears tired. Able to answer all questions. HEENT: Normocephalic, atraumatic. Anicteric. No sinus congestion. No sinus tenderness, no oropharyngeal exudate. Dentition fair. NECK: Supple. LUNGS: Very slight wheezing but much improved from yesterday HEART: S1, S2. No murmurs. ABDOMEN: Obese, soft. Bowel sounds present, nontender. EXTREMITIES: No edema or cyanosis. DERMATOLOGIC: Warm, dry, no generalized rash. Previous scars well healed of both lower extremities. NEUROLOGIC: AAOx3. PIV looks clean. General: Alert, Oriented X3, Cooperative, mild distress Heart: Regular rate, Normal S1, Normal S2 Lungs: Other (Slight wheezing but very little much improved from yesterday this morning) Abdomen: Normal bowel sounds, Soft, No tenderness, No hepatosplenomegaly, No masses Extremities: No clubbing, No cyanosis, No edema, Normal pulses Skin: No rashes, No breakdown, No significant lesion Labs Labs: Laboratory Tests Test 05/18/21 12:13 05/18/21 16:48 05/18/21 19:01 05/19/21 06:30 Glucose (Fingerstick) 198 mg/dL (70-99) 269 mg/dL (70-99) 269 mg/dL (70-99) White Blood Count 7.8 x10^3/uL (4.0-11.0) Red Blood Count 4.49 x10^6/uL (3.50-5.40) Hemoglobin 13.5 g/dL (12.0-15.5) Hematocrit 41.1 % (36.0-47.0) Mean Corpuscular Volume 92 fL (79-100) Mean Corpuscular Hemoglobin 30 pg (25-35) Mean Corpuscular Hemoglobin Concent 33 g/dL (31-37) Red Cell Distribution Width 13.3 % (11.5-14.5) Platelet Count 215 x10^3/uL (140-400) Neutrophils (%) (Auto) 63 % (31-73) Lymphocytes (%) (Auto) 23 % (24-48) Monocytes (%) (Auto) 11 % (0-9) Eosinophils (%) (Auto) 2 % (0-3) Basophils (%) (Auto) 1 % (0-3) Neutrophils # (Auto) 4.9 x10^3/uL (1.8-7.7) Lymphocytes # (Auto) 1.8 x10^3/uL (1.0-4.8) Monocytes # (Auto) 0.9 x10^3/uL (0.0-1.1) Eosinophils # (Auto) 0.2 x10^3/uL (0.0-0.7) Basophils # (Auto) 0.1 x10^3/uL (0.0-0.2) Sodium Level 143 mmol/L (136-145) Potassium Level 3.9 mmol/L (3.5-5.1) Chloride Level 105 mmol/L (98-107) Carbon Dioxide Level 27 mmol/L (21-32) Anion Gap 11 (6-14) Blood Urea Nitrogen 20 mg/dL (7-20) Creatinine 0.9 mg/dL (0.6-1.0) Estimated GFR (Cockcroft-Gault) 61.7 Glucose Level 132 mg/dL (70-99) Calcium Level 9.6 mg/dL (8.5-10.1) Test 05/19/21 07:52 Glucose (Fingerstick) 157 mg/dL (70-99) Review of Systems Review of Systems: ROS Negative Assessment and Plan Assessmemt and Plan Problems Medical Problems: (1) Sepsis secondary to UTI Status: Acute Acute metabolic encephalopathy UTI Sepsis HTN Acute Asthma exacerbation Cough DM2 Moderate protein calorie malnutrition Blood culture positive Plan: - Continue IV antibiotics - Increase Lasix dose from 20mg to 40mg daily PO, as well as order Potassium 20mg PO with it - Continue scheduled Nebs and steroids - Continue supportive care - Continue aspiration caution - Continue SSI - Continue anti-hypertensive therapy - Cardiac monitoring - Continue to trend labs - Continue PT/OT - Continue Home meds as indicated - Continue DVT Prophylaxis - P.O. intake encouraged Might need fpc? Full Code Discharge pending disposition Comment Review of Relevant I have reviewed the following items keron (where applicable) has been applied. Medications: Current Medications Medications (Trade) Dose Ordered Sig/Fransico Route PRN Reason Start Time Stop Time Status Last Admin Dose Admin Amoxicillin/ Clavulanate Potassium (Augmentin 875/ 125mg) 1 tab BID PO 05/18/21 21:00 05/25/21 20:59 05/19/21 08:40 Potassium Chloride (Klor-Con) 40 meq 1X ONCE PO 05/18/21 12:00 05/18/21 12:01 DC 05/18/21 13:15 Justifications for Admission Other Justification GLADIS PARKER III DO May 19, 2021 11:26
[2021-05-19] MEDS: POTASSIUM CHLORIDE 20 MEQ TABLET.ER. PO SCH (12:47)
[2021-05-19] MEDS: FUROSEMIDE 40 MG TABLET. PO SCH (12:48)
[2021-05-19] MEDS: ENOXAPARIN 40 MG/0.4 ML SYRINGE. SQ SCH (17:38)
[2021-05-19] MEDS: PSYLLIUM HUSK (SUGAR FREE) 1 PKT PACKET PO SCH (21:00)
[2021-05-19] MEDS: ASPIRIN CHEWABLE 81 MG TABLET. PO SCH (21:05)
[2021-05-19] MEDS: GABAPENTIN 400 MG CAPSULE. PO SCH (21:05)
[2021-05-20 03:00] VITALS: BP 110/64
[2021-05-20] MEDS: PANTOPRAZOLE 40 MG TABLET.DR. PO SCH (06:05)
[2021-05-20 07:00] VITALS: BP 119/74
[2021-05-20] MEDS: IPRATRPIUM/ALBUTEROL 0.5/2.5MG 3 ML NEBU. NEB SCH ×2 (07:20→11:16)
[2021-05-20] MEDS: BUDESONIDE 0.5 MG/2 ML NEBU. NEB SCH (07:20)
[2021-05-20 07:48] LABS: BASO # 0.1 x10^3/uL (0.0-0.2); BASO % 1 % (0-3); EOS # 0.2 x10^3/uL (0.0-0.7); EOS % 2 % (0-3); HEMATOCRIT 42.7 % (36.0-47.0); HEMOGLOBIN 13.7 g/dL (12.0-15.5); LYMPH # 2.1 x10^3/uL (1.0-4.8); LYMPH % 24 % (24-48); MEAN CORPUSCULAR HEMOGLOBIN 29 pg (25-35); MEAN CORPUSCULAR HGB CONC 32 g/dL (31-37); MEAN CORPUSCULAR VOLUME 91 fL (79-100); MONO # 1.1 x10^3/uL (0.0-1.1); MONO % 13 % (0-9); NEUT # 5.2 x10^3/uL (1.8-7.7); NEUT % 60 % (31-73); PLATELET COUNT 229 x10^3/uL (140-400); RED BLOOD COUNT 4.67 x10^6/uL (3.50-5.40); RED CELL DISTRIBUTION WIDTH 13.6 % (11.5-14.5); WHITE BLOOD COUNT 8.7 x10^3/uL (4.0-11.0)
[2021-05-20] MEDS: INSULIN LISPRO 300 UNITS/3 ML VIAL. SQ SCH ×2 (08:00→12:31)
[2021-05-20 08:12] LABS: CALCIUM 9.9 mg/dL (8.5-10.1); GFR 54.7; POTASSIUM 3.7 mmol/L (3.5-5.1)
[2021-05-20] MEDS: CETIRIZINE HCL 10 MG TABLET. PO SCH (08:46)
[2021-05-20] MEDS: LACTOBACILLUS RHAMNOSUS GG 1 CAPSULE. PO SCH (08:46)
[2021-05-20] MEDS: BENZONATATE 100 MG CAPSULE. PO SCH (08:46)
[2021-05-20] MEDS: BENZOCAINE/MENTHOL LOZENGE. PO PRN (08:46)
[2021-05-20] MEDS: cycloSPORINE 0.05% OPHTH DROPERETTE. OU SCH (08:46)
[2021-05-20] MEDS: AMOXICILLIN/K CLAV 875/125MG TABLET. PO SCH (08:47)
[2021-05-20] MEDS: MONTELUKAST SODIUM 10 MG TABLET. PO SCH (08:47)
[2021-05-20] MEDS: DOXYCYCLINE HYCLATE 100 MG TABLET PO SCH (08:47)
[2021-05-20] MEDS: FUROSEMIDE 40 MG TABLET. PO SCH (08:47)
[2021-05-20] MEDS: GLIMEPIRIDE 2 MG TABLET. PO SCH (08:47)
[2021-05-20] MEDS: POLYETHYLENE GLYCOL 3350 17 GM PACKET. PO SCH (08:47)
[2021-05-20] MEDS: POTASSIUM CHLORIDE 20 MEQ TABLET.ER. PO SCH (08:47)
--- NOTE | 2021-05-20 10:53 | PDOC ---
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 Was being treated presumptively for UTI with cipro for the past 5 days. Has been having a fever of about 102*F for the past week and a productive cough.She c/o myalgias and difficulty breathing. Is aware of confusion. No neck pain or nuchal rigidity. EKG sinus tachycardia at 115 bpm, unremarkable intervals, left axis deviation, occasional PVCs without obvious ischemic findings, no ST elevations or TWI WBC 12.6, Hb 14.2, platelets 152, NA 140, K3.9, BUN 13, CR 0.9, glucose 113 lactic acid 1.5, LFTs within normal laboratory limits albumin 2.8, urine with leuk large leukoesterase and blood rapid COVID-19 negative chest radiograph with no acute findings but diffuse interstitial prominence,chronic. Admitted for further care. 05/13: Febrile up to 102 F. She is antibiotic to Zosyn. Still short of breath with some chest discomfort after coughing. Less confused today. COVID-19 PCR returned negative. 05/14: Febrile 102.4 F overnight. Shortness of breath improved slightly. Some abdominal discomfort today. No abnormalities on CT abdomen/pelvis. 05/15: Blood cultures with staph hominis, and urine culture no growth to date. Rapid influenza negative. Afebrile past 24 hours. ID consult due to fevers for 48 hours on initial admit now afebrile abdominal pain is resolved but having some chest pain with coughing. CT chest without contrast ordered. Change van comycin to doxycycline 05/16 Patient seen and examined at bedside Chart reviewed Patient comfortable, NAD Afebrile (98.2) Patient AAOx3, feels more or less unchanged from yesterday. no complaints other than cough IV Abx and IV fluids running at time of exam Discussed case with RN and SW 05/17 Pt seen and examined at bedside Chart reviewed No acute overnight events, pt afebrile (98.8) Pt AAOx3 and in good spirits Pt appears more dyspneic and has audible wheezes more pronounced from yesterday Per OT, pt had fall on L shoulder a few weeks ago and still has pain from it Tra 05/18: Pt was seen, examined, and their chart was reviewed. Pt is resting and currently on Abx,, and states that she feels a little better than yesterday but has a slight cough Shoulder imaging revealed no abnormalities. Discussed with RN and MADHURI. 05/19: Pt was seen, examined, and their chart was reviewed. Pt is resting in bed and continues to have coughing, but the Lasix has been effective in clearing her lungs. Awaiting probable discharge tomorrow if Pt is stable. Discussed with RN and MADHURI. 05/20: Pt was seen, examined, and their chart was reviewed. Pt is resting in bed and is feeling a lot better compared to yesterday. Awaiting probable discharge for home health later today. Discussed with KATIE and MADHURI. Vitals/I&O Vitals/I&O: Vital Signs Date Time Temp Pulse Resp B/P (MAP) Pulse Ox O2 Delivery O2 Flow Rate FiO2 05/20/21 08:47 92 119/74 05/20/21 07:21 94 Room Air 05/20/21 07:00 98.5 18 98.5 05/19/21 08:00 2.0 I & O 05/19/21 05/19/21 05/20/21 15:00 23:00 07:00 Intake Total 120 ml 120 ml Output Total 500 ml Balance -380 ml 120 ml Physical Exam Physical Exam: GENERAL: Alert, oriented x 3 female, cooperative, in mild distress from coughing, appears tired. Able to answer all questions. HEENT: Normocephalic, atraumatic. Anicteric. No sinus congestion. No sinus tenderness, no oropharyngeal exudate. Dentition fair. NECK: Supple. LUNGS: Very slight wheezing but much improved from yesterday HEART: S1, S2. No murmurs. ABDOMEN: Obese, soft. Bowel sounds present, nontender. EXTREMITIES: No edema or cyanosis. DERMATOLOGIC: Warm, dry, no generalized rash. Previous scars well healed of both lower extremities. NEUROLOGIC: AAOx3. PIV looks clean. General: Alert, Oriented X3, Cooperative, No acute distress Heart: Regular rate, Normal S1, Normal S2 Lungs: Other (Slight wheezing but very little much improved from yesterday this morning) Abdomen: Normal bowel sounds, Soft, No tenderness, No hepatosplenomegaly, No masses Extremities: No clubbing, No cyanosis, No edema, Normal pulses Skin: No rashes, No breakdown, No significant lesion Labs Labs: Laboratory Tests Test 05/19/21 11:37 05/19/21 16:49 05/19/21 19:24 05/20/21 07:20 Glucose (Fingerstick) 196 mg/dL (70-99) 156 mg/dL (70-99) 295 mg/dL (70-99) White Blood Count 8.7 x10^3/uL (4.0-11.0) Red Blood Count 4.67 x10^6/uL (3.50-5.40) Hemoglobin 13.7 g/dL (12.0-15.5) Hematocrit 42.7 % (36.0-47.0) Mean Corpuscular Volume 91 fL (79-100) Mean Corpuscular Hemoglobin 29 pg (25-35) Mean Corpuscular Hemoglobin Concent 32 g/dL (31-37) Red Cell Distribution Width 13.6 % (11.5-14.5) Platelet Count 229 x10^3/uL (140-400) Neutrophils (%) (Auto) 60 % (31-73) Lymphocytes (%) (Auto) 24 % (24-48) Monocytes (%) (Auto) 13 % (0-9) Eosinophils (%) (Auto) 2 % (0-3) Basophils (%) (Auto) 1 % (0-3) Neutrophils # (Auto) 5.2 x10^3/uL (1.8-7.7) Lymphocytes # (Auto) 2.1 x10^3/uL (1.0-4.8) Monocytes # (Auto) 1.1 x10^3/uL (0.0-1.1) Eosinophils # (Auto) 0.2 x10^3/uL (0.0-0.7) Basophils # (Auto) 0.1 x10^3/uL (0.0-0.2) Sodium Level 144 mmol/L (136-145) Potassium Level 3.7 mmol/L (3.5-5.1) Chloride Level 106 mmol/L (98-107) Carbon Dioxide Level 27 mmol/L (21-32) Anion Gap 11 (6-14) Blood Urea Nitrogen 21 mg/dL (7-20) Creatinine 1.0 mg/dL (0.6-1.0) Estimated GFR (Cockcroft-Gault) 54.7 Glucose Level 130 mg/dL (70-99) Calcium Level 9.9 mg/dL (8.5-10.1) Test 05/20/21 07:43 Glucose (Fingerstick) 127 mg/dL (70-99) Review of Systems Review of Systems: ROS Negative Assessment and Plan Assessmemt and Plan Problems Medical Problems: (1) Sepsis secondary to UTI Status: Acute Acute metabolic encephalopathy UTI Sepsis HTN Acute Asthma exacerbation Cough DM2 Moderate protein calorie malnutrition Blood culture positive Plan: (continue the following until discharge later today) - Continue IV Abx and Lasix - Continue scheduled Nebs and steroids - Continue supportive care - Continue aspiration caution - Continue SSI - Continue anti-hypertensive therapy - Continue cardiac monitoring - Continue to trend labs - Continue PT/OT - Continue Home meds as indicated - Continue DVT Prophylaxis - P.O. intake encouraged Full Code Probable Discharge to home health later today Comment Review of Relevant I have reviewed the following items keron (where applicable) has been applied. Medications: Current Medications Medications (Trade) Dose Ordered Sig/Fransico Route PRN Reason Start Time Stop Time Status Last Admin Dose Admin Furosemide (Lasix) 40 mg DAILY PO 05/19/21 13:00 05/20/21 08:47 Potassium Chloride (Klor-Con) 20 meq DAILY PO 05/19/21 13:00 05/20/21 08:47 Justifications for Admission Other Justification GLADIS PARKER III DO May 20, 2021 10:53
[2021-05-20 11:00] VITALS: BP 129/60
[2021-05-20] MEDS ORDERED: DOXY100T PO (11:15)
[2021-05-20] MEDS ORDERED: AMOX1TAB11 PO (11:15)
[2021-05-20] MEDS ORDERED: BENZ-8 PO (11:15)
--- NOTE | 2021-05-20 11:16 | SNU/HH DC ---
DISCHARGE WITH HOME HEALTH DISCHARGE INFORMATION: Final Diagnosis: Problems Medical Problems: (1) Sepsis secondary to UTI Status: Acute Condition on Discharge: Stable CODE STATUS: Code Status: Full HOME HEALTH: Face to Face: I certify this patient is under my care and that I, or a nurse practitioner or physician's multimedia assistant working with me, had a face to face encounter that meets the physician face to face encounter requirements with this patient on []. Medical Complications: CHF, Other (Resolving pneumonia) Jail For: Assess Cardiopulm Status RN For Eval/Treatment: Yes Physical Therapy For: Evalulation/Treatment Occupational Therapy For: Evaluation/Treatment Home Health Aide For: Self-care PERIPHERAL EDP EQUIPMENT OPERATOR For: Community Resources Pt Meets Homebound Status: Unsteady balance w/ amb, POST DISCHARGE ORDERS: Activity Instructions for Disc: Activity as tolerated DIET AFTER DISCHARGE: Cardiac CHECKS AFTER DISCHARGE: Checks after discharge: Check blood press - daily, Check your Temp as needed CERTIFICATION STATEMENT: Certification Statement: Certification Statement: Based on the above finding, I certify that this patient is confined to the home and needs intermittent shelter care, physical therapy and/or speech therapy, or continues to need occupational therapy.~ This patient is under my care, and I have initiated the establishment of the plan of care.~ This patient will be followed by myself or a community physician who will periodically review the plan of care. Home Meds Active Scripts Benzonatate (BENZONATATE) 100 Mg Capsule, 100 MG PO [id number] for . for 10 Days, #30 CAP Prov:CASTLE,NIAL K III DO 05/20/21 Doxycycline Hyclate (DOXYCYCLINE HYCLATE) 100 Mg Tablet, 100 MG PO BID for . for 7 Days, #14 TAB Prov:CASTLE,NIAL K III DO 05/20/21 Amoxicillin/Potassium Clav (AMOX TR-K CLV 875-125 MG TAB) 1 Each Tablet, 1 TAB PO BID for . for 7 Days, #14 TAB Prov:CASTLE,NIAL K III DO 05/20/21 Reported Medications Ascorbic Acid (Vitamin C) 500 Mg Capsule, 1 CAP PO BID for uti prevention for 28 Days, #56 CAP 0 Refills 05/13/21 Cranberry Extract/Vit C (AZO CRANBERRY SOFTGEL) 1 Each Capsule, 1 CAP PO DAILY for uti prevention for 30 Days, #30 CAP 0 Refills 05/13/21 Glimepiride (GLIMEPIRIDE) 2 Mg Tablet, 1 TAB PO BID for fsbs, #30 TAB 5 Refills 05/13/21 Albuterol Sulfate (VENTOLIN HFA INHALER) 18 Gm Hfa.aer.ad, 2 PUFF INH QID for FOR ASTHMA, INHALER 0 Refills 04/16/19 Betamethasone Dipropionate (BETAMETHASONE DIPROPIONATE) 15 Gm Cream..g., 1 KEYANA TP PRN DAILY PRN for skin rash, #15 GM 3 Refills 04/16/19 Lidocaine HCl (Aspercreme) 76.5 Gm Cream..g., 76.5 GM TP PRN BID PRN for joint pain, EACH 04/16/19 Fluticasone Propionate (Flonase Allergy Relief) 9.9 Ml Selma.susp, 2 SPRAYS NS PRN BID PRN for ALLERGIES, BOTTLE 04/16/19 Ibuprofen (IBUPROFEN) 400 Mg Tablet, 400 MG PO BID PRN for INFLAMMATION, TAB 04/16/19 Cyclosporine (RESTASIS) 1 Each Droperette, 1 DROP EACHEYE BID for dryness, #60 VIAL 3 Refills 04/16/19 Polyethylene Glycol 3350 (MIRALAX) 17 Gm Powd.pack, 1 PACKET PO DAILY for constipation, #30 PACKET 3 Refills 04/16/19 Fluticasone/Salmeterol (ADVAIR 250-50 DISKUS) 1 Each Disk.w.dev, 2 PUFF IH BID for COPD, #3 INHALER 3 Refills 04/16/19 Omeprazole (OMEPRAZOLE) 20 Mg Capsule.dr, 1 CAP PO DAILY for GERD, #30 CAP 5 Re fills 04/16/19 Aspirin (ASPIRIN) 81 Mg Tab.chew, 1 TAB PO QHS for clot prevention, #30 TAB 3 Refills 04/16/19 [place]-3S/Dha/Epa/Fish Oil (Fish Oil 1,000 mg Softgel) 1 Each Capsule, 1 EACH PO BID for Supplment, CAP 04/16/19 Gabapentin (GABAPENTIN ) 100 Mg Capsule, 400 MG PO QHS for NEUROGENIC PAIN, CAP 04/16/19 Acetaminophen (ACETAMINOPHEN) 500 Mg Tablet, 2 TAB PO TIDWMEALS for chronic pain, #60 TAB 1 Refill 04/16/19 Ergocalciferol (Vitamin D2) (VITAMIN D2) 50,000 Unit Capsule, 1 CAP PO QSA for supplement , #4 CAP 5 Refills 04/16/19 Loratadine (LORATADINE) 10 Mg Tablet, 1 TAB PO DAILY for allergy, #30 TAB 5 Refills 04/16/19 Guaifenesin (MUCINEX) 600 Mg Tablet.er, 600 MG PO BID for allergy, TAB.SR 04/16/19 Metformin Hcl (METFORMIN HCL) 500 Mg Tablet, 500 MG PO DAILY for ANTI-DIABETIC, TAB 0 Refills 12/14/16 Amlodipine Besylate (NORVASC) 5 Mg Tablet, 1 TAB PO DAILY, #30 TAB 5 Refills 12/14/16 Potassium Chloride (POTASSIUM CHLORIDE ) 10 Meq Capsule.er, 10 MEQ PO DAILY 07/23/13 Montelukast Sodium (SINGULAIR TABLET ) 10 Mg Tablet, 10 MG PO DAILY 07/23/13 Discontinued Reported Medications Furosemide (FUROSEMIDE) 20 Mg Tablet, 1 TAB PO QTUTHSASU for edema, #90 TAB 1 Refill 04/16/19 GLADIS PARKER III DO May 20, 2021 11:16
--- NOTE | 2021-05-20 11:33 | DS ---
DATE OF DISCHARGE: 05/20/2021 ADMITTING DIAGNOSIS: Respiratory failure secondary to pneumonia, acute encephalopathy, urinary tract infection, sepsis. DISCHARGE DIAGNOSES: Resolving respiratory failure, resolving urinary tract infection, resolving sepsis, resolving encephalopathy, hypertension, asthma, diabetes, malnutrition, resolving. CONSULTS: Infectious Disease. PROCEDURES: None. 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 Basically, she presented with mental status change, was noted to have a UTI and possible pneumonia. She was encephalopathic. She had a white count elevation. We admitted the patient. We gave her IV antibiotics. Consulted Infectious Disease. Three days ago, she began having some worsening respiratory failure. I did a chest x-ray and ABG, really did not show a whole lot, but I gave her some Lasix and over the past couple days, she has really improved a lot. Today, I saw and examined her. She is up in the bed, smiling, wanting to go home. We plan to discharge with home health. DISPOSITION: Home with home health. ACTIVITY: As tolerated. DIET: Low sodium. MEDICATIONS: Augmentin 875 b.i.d. for 1 week, doxycycline 100 b.i.d. for 1 week, benzonatate 100 t.i.d. p.r.n. P.r.n. Tylenol, albuterol 2 puffs q.i.d., amlodipine 5 a day, vitamin C, aspirin 81 a day, betamethasone topical skin apply b.i.d., cranberry extract, Restasis eye drops, vitamin D, Flonase, Advair 250/50 two puffs b.i.d., gabapentin 400 at bedtime, glimepiride 2 b.i.d., Mucinex 600 b.i.d., ibuprofen 400 b.i.d. p.r.n., Aspercreme p.r.n., loratadine 10 daily, metformin 500 daily, Singulair 10 a day, omega-3 fish oil, omeprazole 20 a day, MiraLax p.r.n., and potassium 20 daily. I left prescriptions for Lasix 40 p.o. a day and potassium chloride 20 p.o. daily. TOTAL TIME: 34 minutes. MEDINA/LIEN DR: MEDINA/justine TID: [id number]
[2021-05-20 15:00] VITALS: BP 121/72
--- NOTE | 2021-05-20 15:30 | NUR ---
Discharge Note: Patient was discharged home at the [facility] with home health. Patients IV was discontinued without any complications by MANAGER STRATEGIC SOURCING. Patients white catheter was placed prior to patient being discharged. Patient was transported to facility via stretcher, sister went with her. Patient took all personal belongings. Report was called to Sister Kathi at the [facility]. All discharge summary/instructions were sent with patient to facility. Patients Lasix and Potassium was called into patients preferred pharmacy by this RN.
== END 2021-05-20 15:30 | disposition home health service (06) | DRG 871 ==
LOC: ER 13:56 → 5 NORTH 16:47
PROVIDERS: ADMIT Internal Medicine; ATTEND Internal Medicine
DX: A41.89 Other specified sepsis (principal); G93.41 Metabolic encephalopathy; J96.90 Respiratory failure, unspecified, unspecified whether with hypoxia or hypercapnia; J18.9 Pneumonia, unspecified organism; E44.0 Moderate protein-calorie malnutrition; J44.0 Chronic obstructive pulmonary disease with (acute) lower respiratory infection; J45.901 Unspecified asthma with (acute) exacerbation; N39.0 Urinary tract infection, site not specified; E11.51 Type 2 diabetes mellitus with diabetic peripheral angiopathy without gangrene; I10 Essential (primary) hypertension; I49.3 Ventricular premature depolarization; K76.0 Fatty (change of) liver, not elsewhere classified; M79.7 Fibromyalgia; R32 Unspecified urinary incontinence; R65.20 Severe sepsis without septic shock; Z82.49 Family history of ischemic heart disease and other diseases of the circulatory system; Z96.651 Presence of right artificial knee joint; K21.9 Gastro-esophageal reflux disease without esophagitis; M19.90 Unspecified osteoarthritis, unspecified site; Z20.822 Contact with and (suspected) exposure to COVID-19; Z68.25 Body mass index [BMI] 25.0-25.9, adult; Z88.8 Allergy status to other drugs, medicaments and biological substances; Z91.018 Allergy to other foods; Z91.048 Other nonmedicinal substance allergy status
CPT/HCPCS: 36415; 36600; 51702; 71045; 71250; 73030; 74177; 80048; 80053; 81001; 82805; 82962; 83605; 83735; 83880; 84484; 85025; 85379; 87040; 87077; 87086; 87205; 87426; 87449; 87804; 93005; 94640; 94760; 96361; 96372; 96374; J0696; J1650; J1815; J1940; J2405; J2543; J3370; J7030; J7040; Q9967; U0003; U0005; 97110-GP; 97530-GO; 97535-GO; 99285-25; G0378; J7626